=== PATIENT | female | born 1955 | race Caucasian/White ===

== ENCOUNTER 2023-07-27 10:33 | Outpatient (OUT) | payer MEDICARE, OTHER, SELFPAY ==
--- NOTE | 2023-07-27 11:07 | P.CN_ITS ---
Consult Note: HPI Data of Consult Patient: new to practice Consult date: 07/27/23 Requesting Physician: Lynn Graham NP Primary Care Provider: Julio Elias MD Consult Narrative Reason for consult: establish for low back pain Narrative: Cesia Cardona a pleasant 68 year old female presents for evaluation and management of chronic low back pain without radiculopathy. Pain today 7/10 in low back which is aggravated with all activity bending twisting standing and improves with sitting. Patient is utilizing marijuana, finds benefit from mobic. Please note she is on fosamax now for bone density. Patient was evaluated by ortho and deemed non surgical for right hip pain at this time. cc:: CC: Lynn Graham NP Review of Systems 2 ROS0 Status of ROS 10 or more systems reviewed and unremark able except as noted in history and below Musculoskeletal Reports: back pain and joint pain Exam Constitutional Documenting provider has reviewed patient's vital signs: yes Common normals: no apparent distress, oriented x3, healthy appearing, alert and well nourished General appearance: cooperative HENMT Common normals: normocephalic, hearing grossly normal bilaterally and moist oral mucous membranes Head and scalp: normocephalic Eye Common normals: PERRL Pupil: PERRL Neck & C-Spine Common normals: full ROM General: normal visual inspection Chest Common normals: inspection of chest normal Respiratory Common normals: normal respiratory effort, no retractions and no use of accessory muscles Back & Pelvis Lumbar spine/lower back: pain with ROM and straight leg raise negative bilaterally Sacroiliac joints: SI joints normal Other: positive facet loading patient reports pain over area below, marked with skin marker for xray Back image (female): 2 1. Extremity Common normals: normal to inspection and full ROM Right lower extremity: hip joint Other: pain with internal and external rotation reports popping sensation intermittently Neuro Common normals: oriented x3, CN's II-XII intact bilaterally, moves all extremities, no focal motor deficits, no sensory deficits noted, deep tendon reflexes 2+ bilaterally and gait normal Sensorium/orientation: alert Motor exam: strength 5/5 throughout and no movement abnormalities noted Psych Common normals: mental status grossly normal, thought process normal, cooperative, affect normal, speech normal and activity/motor behavior normal Speech: normal speech Thought process: normal thought process Assessment and Plan Assessment and Plan (1) Chronic low back pain: (2) Lumbar spondylosis: (3) Right hip pain: (4) Osteoporosis: Plan start PT/aquatherapy for chronic low back pain and lumbar spondylosis update xray imaging of lumbar spine with flexion and extension (skin marker on patient reported worst level of pain) continue current medications educated on NNCP with marijuana use [employer] reviewed and signed f/u 6 weeks to discuss xray imaging and lumbar facet blocks working towards thermal RFA
== END 2023-07-27 10:34 | disposition home or self-care (01) ==
LOC: PM 10:33
PROVIDERS: PCP Family Medicine; Visit Provider Nurse Practitioner
DX: M54.50 Low back pain, unspecified (principal); G89.29 Other chronic pain; M47.816 Spondylosis without myelopathy or radiculopathy, lumbar region; M25.551 Pain in right hip; M81.0 Age-related osteoporosis without current pathological fracture
CPT/HCPCS: 72114; G0463

== ENCOUNTER 2023-07-27 11:46 | Outpatient (OUT) | payer MEDICARE, OTHER, SELFPAY ==
--- NOTE | 2023-07-27 | XR_ITS ---
The [address] [address] Patient Name: VENESSA PUGH MRN: [id number] date: 1955 Sex: F Assigned Patient Location: [facility] Current Patient Location: [facility] Accession/Order Number: [id number] Exam Date: 07/27/2023 12:00 Report Date: 07/27/2023 12:48 At the request of: FABIÁN HOLLOWAY Procedure: XR lumbar spine 6V w bending EXAMINATION: XR lumbar spine 6V w bending HISTORY: Chronic Low Back Pain COMPARISON: XR L-spine 10/16/2021 FINDINGS: BONES: Slight left convex curvature of lumbar spine. Grade 1 anterior listhesis of L4 on 5; slightly greater than seen on prior study. No change in alignment during flexion and extension. Moderate degenerative facet arthropathy L4-5, L5-S1. DISC SPACES: Degenerative endplate changes, posterior disc height and osteophyte complexes, and moderate marked disc space narrowing L2-3 through L5-S1. PARASPINOUS: Negative. No paraspinous abnormality is seen. OTHER: Skin surface markers located posterior to the L1-2 and L2-3 disc levels. XR/XR lumbar spine 6V w bending IMPRESSION: 1. Multilevel marked degenerative changes of lumbar spine; slightly progressed compared to prior study. Electronically authenticated by: JANETT SAMPSON Date: 07/27/2023 12:48
== END 2023-07-27 11:47 | disposition home or self-care (01) ==
LOC: RAD 11:48
PROVIDERS: PCP Family Medicine; Visit Provider Nurse Practitioner
DX: M54.50 Low back pain, unspecified (principal); G89.29 Other chronic pain
CPT/HCPCS: 72114

== ENCOUNTER 2023-09-01 12:35 | Outpatient (OUT) | payer MEDICARE, OTHER, SELFPAY ==
--- NOTE | 2023-09-01 12:38 | PM.CN ---
Consult Note: HPI Data of Consult Patient: known to practice within the last 3 years Consult date: 07/27/23 Requesting Physician: Lynn Graham NP Primary Care Provider: Julio Elias MD Consult Narrative Reason for consult: low back pain Narrative: Cesia Cardona a pleasant 68 year old female presents for evaluation and management of chronic low back pain without radiculopathy. Pain today 0/10 increaing to 7/10 in low back which is aggravated with all activity bending twisting standing and improves with sitting. Patient is utilizing marijuana, finds benefit from mobic. Please note she is on fosamax now for bone density. Patient was evaluated by ortho and deemed non surgical for right hip pain at this time. The patient has had over 3 months of moderate to severe low back pain with functional impairment and inadequate response to conservative care including NSAIDS (unless there are contraindication such as concurrent blood thinners), multiple oral or topical pain medications, and home exercise program/physical therapy.?Patient has completed >6 weeks of guided home exercise program and/or formal physical therapy program without relief of their symptoms.?I have reviewed the imaging of the lumbar spine and no red flags were identified.? The imaging reveals radiographic findings consistent with lumbar spondylosis The Oswestry Disability Index was completed, and the patient scored a 26%.? cc:: CC: Lynn Graham NP Review of Systems ROS Status of ROS 10 or more systems reviewed and unremarkable except as noted in history and below Musculoskeletal Reports: back pain and joint pain [facility] Medical History (Updated 09/01/23 @ 13:05 by Lynn Graham NP) Osteoporosis ?M81.0 - Age-related osteoporosis without current pathological fracture (ICD-10) Lumbar spondylosis ?M47.816 - Spondylosis without myelopathy or radiculopathy, lumbar region (ICD-10) Chronic low back pain ?M54.50 - Low back pain, unspecified (ICD-10) ?G89.29 - Other chronic pain (ICD-10) Meds Home Medications and Allergies Home Medications Medication Instructions Recorded Confirmed Type alendronate 70 mg tablet 70 mg PO QWEEK 07/27/23 07/27/23 History calcium carbonate 600 mg-vitamin 1 tab PO BID 07/27/23 07/27/23 History D3 5 mcg (200 unit) tablet (Calcium 600 + D(3)) docusate sodium 100 mg capsule 100 mg PO .HS PRN constipation 07/27/23 07/27/23 History famotidine 20 mg tablet 20 mg PO .HS 07/27/23 07/27/23 History loratadine 10 mg tablet (Claritin) 10 mg PO DAILY 07/27/23 07/27/23 History meloxicam 15 mg tablet 15 mg PO DAILY 07/27/23 07/27/23 History metoprolol succinate 50 mg capsule 50 mg PO BID 07/27/23 07/27/23 History sprinkle, ext. release 24 hr multivitamin 1 tab PO DAILY 07/27/23 07/27/23 History omeprazole 20 mg capsule,delayed 20 mg PO DAILY 07/27/23 07/27/23 History release pravastatin 20 mg tablet 20 mg PO DAILY 07/27/23 07/27/23 History secukinumab 150 mg/mL subcutaneous 150 mg subcut .[id number] 07/27/23 07/27/23 History pen injector (Cosentyx Pen) sennosides 8.6 mg capsule (senna) 8.6 mg PO .HS PRN constipation 07/27/23 07/27/23 History Exam Constitutional Documenting provider has reviewed patient's vital signs: yes Common normals: no apparent distress, oriented x3, healthy appearing, alert and well nourished General appearance: cooperative HENMT Common normals: normocephalic, hearing grossly normal bilaterally and moist oral mucous membranes Head and scalp: normocephalic Eye Common normals: PERRL Pupil: PERRL Neck & C-Spine Common normals: full ROM General: normal visual inspection Chest Common normals: inspection of chest normal Respiratory Common normals: normal respiratory effort, no retractions and no use of accessory muscles Back & Pelvis Lumbar spine/lower back: pain with ROM and straight leg raise negative bilaterally Sacroiliac joints: SI joints normal Other: positive facet loading Extremity Common normals: normal to inspection and full ROM Right lower extremity: hip joint Other: pain with internal and external rotation reports popping sensation intermittently Neuro Common normals: oriented x3, CN's II-XII intact bilaterally, moves all extremities, no focal motor deficits, no sensory deficits noted and deep tendon reflexes 2+ bilaterally Sensorium/orientation: alert Motor exam: strength 5/5 throughout and no movement abnormalities noted Psych Common normals: mental status grossly normal, thought process normal, cooperative, affect normal, speech normal and activity/motor behavior normal Speech: normal speech Thought process: normal thought process Results Additional Findings Additional findings: I have checked an [place]AR[place] report on this patient today and there are no aberrancies noted in the prescribing history.?? A drug screen was completed and reviewed within the last year, and if there has not been a drug screen completed we ordered one today to monitor higher risk, state monitored pain medication use. As part of providing excellent, safe, comprehensive care, the following was completed at our patient's visit: 1. A medication reconciliation and review to ensure accurate knowledge of current/active medications, including asking our patients to inform us about any [id number] medications or herbal remedies/nutritional supplements/alternative remedies. 2. A review to specifically ensure our patients have had annual screening for: elevated body mass index (BMI), tobacco use, screening for depression, and screening for unhealthy alcohol use. When screening is concerning, patients are provided with education and the specific recommendation to discuss the concerning health issue and treatment options with their primary care provider. Assessment and Plan Assessment and Plan (1) Lumbar spondylosis: Assessment and Plan: We discussed the risks and benefits of the procedure with the patient, and we are NOT planning on using sedation as outlined in the guidelines from Medicare unless there is a documented reason that sedation would be strongly recommended.?? The procedure will be completed with fluoroscopic guidance.? (2) Chronic low back pain: (3) Right hip pain: (4) Osteoporosis: Plan xrays reviewed with pt bilateral L3-4 L4-5 facet medial branch blocks x2 working towards thermal RFA continue HEP/PT as tolerated continue current medications continue NNCP, marijuana use f/u 1 week after procedure
--- OUTSIDE RECORDS SUMMARY | 2023-09-01 12:53 | XMS_ITS | CCD ---
Author Name Unknown Address [facility] [address] [place] [address] Organization [facility] Care Team Providers Care Cured Meats Supervisor Name Role Phone CURT ., DR SERNA Attending Unavailable RHONDAY ., DR SERNA Consulting Unavailable RHONDAY ., DR SERNA Primary Care Unavailable CURT ., DR SERNA Admitting Unavailable ZIEBER, DR PAULINO Liu Consulting Unavailable Curt CHUN, Daphne Calles Primary Care Provider [phone] KARLA TYLER Attending Unavailable DAVEY, IRIS L Attending Unavailable UNALLOCATED, [facility]OM[facility] PROVIDER Referring Unava ilable DAVEY, IRIS L Attending Unavailable AMIE, FABIÁN Referring Unavailable DAVEY, IRIS L Attending Unavailable AMIE, FABIÁN Referring Unavailable DAVEY, IRIS L Attending Unavailable AMIE, FABIÁN Referring Unavailable DAVEY, IRIS L Attending Unavailable AMIE, FABIÁN Referring Unavailable APLINGLORE Attending Unavailable DAVEY, IRIS L Attending Unavailable AMIE, FABIÁN Referring Unavailable DAVEY, IRIS L Attending Unavailable AMIE, FABIÁN Referring Unavailable DAVEY, IRIS L Attending Unavailable AMIE, FABIÁN Referring Unavailable DAVEY, IRIS L Attending Unavailable AMIE, FABIÁN Referring Unavailable Allergies Allergy Classification Reported Allergen(s) Allergy Type Date of Onset Reaction(s) Facility (1 source) Leucine Drug Allergy [facility] Repository (1 source) Mis-Other; Translations: [[facility]-Other] Propensity to adverse reactions (disorder) [facility] Medications Current Medications Medication Drug Class(es) Dates Sig (Normalized) Sig (Original) alendronic acid 70 mg oral tablet (6 sources) Bisphosphonate take 1 tablet by mouth every week alendronate (Fosamax) 70 MG tablet TAKE 1 TABLET BY MOUTH ONE TIME PER WEEK 0 Active calcium carbonate 1500 mg / cholecalciferol 200 unt oral tablet (6 sources) Vitamin D Calcium Carb-Cholecalcife rol (Calcium 600 + D) 600-5 MG-MCG tablet 1 (one) time each day at the same time. 0 Active clobetasol propionate 0.0005 mg/mg topical ointment (6 sources) Corticosteroid Start: 07-25-2023 clobetasol (Temovate) 0.05 % ointment Indications: Psoriasis vulgaris (CMS/HCC) Apply to affected areas, up to twice a day when flared, do not use one the face, groin, or underarms, 30 day supply 30 g 07/25/2023 Active famotidine 20 mg oral tablet (6 sources) Histamine-2 Receptor Antagonist famotidine (Pepcid) 20 MG tablet loratadine 10 mg oral tablet (6 sources) loratadine (Claritin) 10 MG tablet 1 (one) time each day at the same time. 0 Active meloxicam 15 mg oral tablet (6 sources) Nonsteroidal Anti-inflammatory Drug take 1 tablet by mouth in the morning meloxicam (Mobic) 15 MG tablet Take 15 mg by mouth in the morning. 0 Active metoprolol tartrate 50 mg oral tablet (6 sources) beta-Adrenergic Mercedes take 1 tablet by mouth twice daily metoprolol tartrate (Lopressor) 50 MG tablet TAKE 1 AND 1/2 TABLETS ORALLY TWICE A DAY 90 DAYS 0 Active Multiple Vitamins-Minerals (SENIOR MULTIVITAMIN PLUS PO) (6 sources) Multiple Vitamins-Minerals (SENIOR MULTIVITAMIN PLUS PO) omeprazole 20 mg delayed release oral capsule (6 sources) Proton Pump Inhibitor take 1 capsule by mouth in the morning omeprazole (PriLOSEC) [address] capsule Take 20 mg by mouth in the morning and 20 mg before bedtime. 0 Active pravastatin sodium 20 mg oral tablet (6 sources) HMG-CoA Reductase Inhibitor take 1 tablet by mouth in the morning pravastatin (Pravachol) 20 MG tablet Take 20 mg by mouth in the morning. 0 Active 1 ml secukinumab 150 mg/ml auto-injector (6 sources) Interleukin-17A Antagonist Start: 05-19-2023 inject 28 mg by subcutaneous injection once daily Cosentyx Sensoready, 300 MG, 150 MG/ML solution auto-injector Indications: Psoriasis vulgaris (CMS/HCC) Inject 300 mg under the skin every 28 (twenty-eight) days. 2 each 05/19/2023 Active Problems Problem Classification Problem Date Documented Da te Episodic/Chronic Menopausal disorders (4 sources) Other primary ovarian failure; Translations: [OTHER PRIMARY OVARIAN FAILURE] Onset: 10-13-2022 Chronic Other bone disease and musculoskeletal deformities (1 source) Other specified disorders of bone density and structure, unspecified site; Translations: [[facility] D/O BONE DEN STRUCT UNS SITE] Onset: 10-19-2022 Episodic Other nervous system disorders (9 sources) Antalgic gait; Translations: [Other abnormalities of gait and mobility] Onset: 07-28-2023 07-28-2023 Episodic Other non-traumatic joint disorders (9 sources) Pain in right hip joint; Translations: [Pain in right hip] Onset: 07-28-2023 07-28-2023 Episodic Other screening for suspected conditions (not mental disorders or infectious disease) (1 source) Encounter for screening mammogram for malignant neoplasm of breast; Translations: [ENC SCR MAMMO MALIG NEOPLASM BREAST] Onset: 10-19-2022 Episodic Residual codes; unclassified (1 source) Family history of other malignant neoplasms of lymphoid, hematopoietic and related tissues; Translations: [FAM HX OTH MAL CRISTINA LYMPH HEMATPOETC] Onset: 10-19-2022 Episodic Residual codes; unclassified (1 source) Family history of malignant neoplasm of other organs or systems; Translations: [FAM HX MALIG NEOPLASM OTH ORGN/SYS] Onset: 10-19-2022 Episodic Spondylosis; intervertebral disc disorders; other back problems (9 sources) Lumbar spondylosis; Translations: [Spondylosis without myelopathy or radiculopathy, lumbar region] Onset: 07-28-2023 07-28-2023 Chronic Results Test Name Value Interpretation Reference Range Facil ity MG MAMM SCREEN 3D REGINO CADon 10-13-2022 MG MAMM SCREEN 3D REGINO CAD Patient: VENESSA PUGH Exam Date: 10/13/2022 : 1955 Gender:F Ordering : DR DAPHNE ELIAS . Admission #: [id number] Family : Order #: [id number] CLICK HERE TO VIEW EXAM RADIOLOGY REPORT PROCEDURE: MAMMOGRAM SCREENING 3D BILATERAL CAD COMPARISON: MG MAMM SCREEN REGINO W CAD, 09/08/2020. MG MAMM SCREEN REGINO W CAD, 09/06/2019. DIGITIZED_MAMMO, 07/23/2008. MG MAMM SCREEN 3D REGINO CAD, 09/09/2021. INDICATIONS: Screening mammography Calculator Name NCI Breast Cancer Risk Assessment Tool 5 Year Breast Cancer Risk 2.90% Lifetime Breast Cancer Risk 8.70% Personal Breast Cancer No Personal Ovarian Cancer No Treatments None Family Cancers Father with nonhotchkins cancer at age 60; Sister with basil cell carcinoma cancer at age 52. LOCATION: [facility] BREAST COMPOSITION: Scattered areas fibroglandular density. FINDINGS: DIAGNOSTIC CATEGORY 2--BENIGN FINDING: RIGHT BREAST: No significant suspicious finding. No significant change has occurred. LEFT BREAST: No significant suspicious finding. No significant change has occurred. RECOMMENDATIONS: ROUTINE MAMMOGRAM AND CLINICAL EVALUATION IN 12 MONTHS. PLEASE NOTE: A NORMAL MAMMOGRAM DOES NOT EXCLUDE THE POSSIBILITY OF BREAST CANCER. A CLINICALLY SUSPICIOUS PALPABLE LUMP SHOULD BE BIOPSIED. Dictated by: Paulino Mendoza M.D. on 10/13/2022 at 13:47 Approved by: Paulino Mendoza M.D. on 10/13/2022 at 13:51 Normal [facility] XR DEXA BONE DENSITYon 10-13 XR DEXA BONE DENSITY EXAMINATION: XR DEXA BONE DENSITY, 10/13/2022 10:53 AM EDT HISTORY: Primary ovarian failure COMPARISON: DEXA bone densitometry 11/06/2004 TECHNIQUE: Dual-energy X-ray absorptiometry (DEXA) bone density study performed for the axial skeleton. FINDINGS: SPINE ANALYSIS: Average bone mineral density is 1.409 g/cm2. T-score (standard deviation relative to young adult mean): 1.7 . -6.5% change since prior study. HIP ANALYSIS: Lowest bone mineral density is within the left femoral trochanter, 0.632 g/cm2. T-score (standard deviation relative to young adult mean): -1.9 . -10.6% change since prior study. IMPRESSION: World [employer] Organization Classification: Osteopenia - Moderate Fracture Risk Electronically authenticated by: PAULINO MENDOZA Date: 2022-10-13 11:38 Normal [facility] Encounters Encounter Date Encounter Type Care Provider Facility Start: 08-30-2023 Tansler flowsheet Iris Davey PT Work Phone: [facility] PT Start: 08-30-2023 Bamboo flowsheet Iris L Davey PT Work Phone: [facility] PT Start: 08-30-2023 End: 08-30-2023 ambulatory Iris L Davey PT Work Phone: [facility] PT Comment on above: Lumbar spondylosis ( Primary Dx); Right hip pain; Antalgic gait Start: 08-25-2023 End: 08-25-2023 ambulatory Iris L Davey PT Work Phone: [facility] PT Comment on above: Lumbar spondylosis ( Primary Dx); Right hip pain; Antalgic gait Start: 08-23-2023 End: 08-23-2023 ambulatory IRIS L DAVEY Not Available Start: 08-19-2023 Chart abstracting Iris L Davey PT Work Phone: [facility] PT Start: 08-18-2023 Bamboo flowsheet Iris L Davey PT Work Phone: [facility] PT Start: 08-18-2023 Bamboo flowsheet Iris L Davey PT Work Phone: [facility] PT Start: 08-18-2023 End: 08-18-2023 ambulatory Iris L Davey PT Work Phone: [facility] PT Comment on above: Lumbar spondylosis ( Primary Dx); Right hip pain; Antalgic gait Start: 08-16-2023 End: 08-16-2023 ambulatory IRIS L DAVEY Not Available Start: 08-11-2023 End: 08-11-2023 ambulatory IRIS L DAVEY Not Available Start: 08-09-2023 End: 08-09-2023 ambulatory IRIS L DAVEY Not Available Start: 08-03-2023 End: 08-03-2023 ambulatory IRIS L DAVEY Not Available Start: 07-28-2023 End: 07-28-2023 ambulatory IRIS L DAVEY Not Available Start: 07-25-2023 End: 07-25-2023 ambulatory KARLA TYLER Not Available Start: 06-13-2023 End: 06-13-2023 ambulatory LORE BLACK Not Available Start: 10-13-2022 End: 10-14-[address] DAPHNE ELIAS . Facility:H1 Plan of Treatment Date Care Activity Detail Author Start: 07-26-2024 End: 07-26-2024 Patient encounter procedure 07/26/2024 1:20 PM EST Office Visit [facility] [address] [place] [id number] Karla Tyler, PROGRAM ELIGIBILITY SPECIALIST-CHUMMER [address] [place] [address] [facility] Start: 10-13-2023 End: 10-13-2023 ambulatory 10/13/2023 1:00 PM EDT Treatment [facility] [address] [place] [phone] Jolynn Iris L, PT [address] [place] [address] [facility] PT Start: 10-11-2023 End: 10-11-2023 ambulatory 10/11/2023 1:00 PM EDT Treatment [facility] [address] [place] [phone] Jolynn Iris L, PT [address] [place] [address] [facility] PT Start: 10-06-2023 End: 10-06-2023 ambulatory 10/06/2023 1:00 PM EDT Treatment [facility] PT [address] [place] [address] Jolynn Iris L, PT [address] [place] [address] [facility] PT Start: 10-04-2023 End: 10-04-2023 ambulatory 10/04/2023 1:00 PM EDT Treatment [facility] PT [address] [place] [phone] Iris Davey L, PT [address] [place] [address] [facility] Start: 09-29-2023 End: 09-29-2023 ambulatory 09/29/2023 1:00 PM EDT Treatment [facility] [address] [place] [address] Iris Davey L, PT [address] [place] [address] [facility] Start: 09-27-2023 End: 09-27-2023 ambulatory 09/27/2023 2:00 PM EDT Treatment [facility] [address] [place] [address] Iris Davey L, PT [address] [place] [address] [facility] Start: 09-01-2023 End: 09-01-2023 ambulatory 09/01/2023 10:30 AM EST Treatment [facility] [address] [place] [address] Davey, Iris L, PT [address] [place] [address] [facility] Start: 08-30-2023 End: 08-30-2023 ambulatory [facility] Comment on above: Arrived Start: 08-25-2023 End: 08-25-2023 ambulatory 08/25/2023 1:00 PM EST Treatment [facility] [address] [place] [address] Jolynn Iris L, PT [address] [place] [address] [facility] Start: 08-23-2023 End: 08-23-2023 ambulatory 08/23/2023 1:00 PM EST Treatment [facility] [address] [place] [address] Jolynn Iris Singleton, PT [address] [place] [address] [facility] Start: 08-18-2023 End: 08-18-2023 ambulatory 08/18/2023 1:00 PM EST Treatment [facility] [address] [place] [address] Jolynn Iris L, PT [address] [place] [address] Arrived [facility] Comment on above: Arrived Start: 1993 Screening for malign ant neoplasm of breast Mammogram [facility] Start: 1955 Screening for malign ant neoplasm of colon [facility] Immunizations Immunization Date Immunization Notes Care Provider Fa cility 04-22-2022 SARS-CoV-2, Unspecified Daisy Davey PT Work Phone: [facility] Payers Date Payer Category Payer Unknown [employer] [id number] 2021-Present [address] [place] [address] [id number] 2018 Medicare MEDICARE MEDICAR E PART B [id number] 2018-Present [address] [address] [place] [address] Medicare [id number] 1959 Medicare [id number] 1959 Unknown [id number] 1955 Unknown [id number] 1955 Unknown [id number] 1955 Unknown [id number] [id number] 1955 Unknown [id number] [id number] 1955 Unknown [id number] [id number] 1953 Unknown [id number] [id number] 1955 Unknown [id number] [id number] 1955 Unknown [id number] [id number] 1955 Unknown [id number] [id number] 1955 Unknown [id number] [id number] 1955 Unknown [id number] [id number] 1955 Unknown [id number] Social History Date Type Detail Facility Start: 04-25-2023 Tobacco smoking status [facility] Never sm oked tobacco [facility] Start: 04-25-2023 Tobacco use and exposure Smoke less tobacco non-user [facility] Start: 07-25-2023 Alcohol intake Current drinke r of alcohol (finding) [facility] Start: 07-25-2023 End: 08-01-2023 [facility] of [facility] Start: 07-25-2023 End: 08-01-2023 Alcohol Use Disorder Identification Test - Consumption [AUDIT-C] [facility] How often to you hav e a drink containing alcohol? 2-4 times a month [facility] How many standard dr inks containing alcohol do you have on a typical day? 1 or 2 [facility] Frequency of Binge Drinking Not on file [facility] Start: 06-11-2023 Alcohol Comment coffee 3-4 cups per day [facility] Start: 1955 Sex Assigned At Female [facility] Start: 04-20-2023 Gender identity Identifies as female gender (finding) [facility] Start: 04-20-2023 Sexual orientation Heterosexual (fin maria del carmen) [facility] History of Present illness Narrative 08-30-2023 Iris Davey PT - 08/30/2023 1:00 PM EST Note Date & Type Note Facility 08-30-2023 History of Presen t illness Narrative Physical Therapy Physical Therapy Treatment Visit Patient Name: Cesia Pugh Today's Date: 08/30/2023 Encounter Diagnoses Name Primary? Lumbar spondylosis Yes Right hip pain Antalgic gait Visit number: 9 Supervised time: 32 Total time: 65 Subjective Pain: 2/10 soreness from grocery shopping prior to session Overall progress: Improving with hip pain and mobility. Reports ~90% improvement. Much easier to perform car transfers. Has started stretching her hips right before bed and that has been helping her sleep better. States ~30-40% improvement in LBP. Back pain is what is limiting her functional mobility at this time. [place] [facility] [place]. Will be seeing pain management on . Treatment: Therapeutic Exercise: x28' (14' unsupervised) Per Exercise Grid for Range of Motion, Flexibility, Muscle Strength/Endurance, Neuromuscular Training Manual: x15' consisting of grade II-III lateral B hip joint mobs using belt in hooklying as well as long leg distraction with oscillations, hip abd PROM in supine. B hip ER/IR PROM in prone over 2 pillows Modalities: Lumbar mechanical traction x12' at 85/70# (45 /15 ) in supine with LEs elevated on bench for decompression. MHP to R hip x10' in sitting for soreness prevention post-session. Assessment: Progressing appropriately. No pain in L hip until end of session after completing bridges. Plan: Continue per POC. Hip mobs and PROM. Lumbar traction. ROM and strengthening. Follow up with pain management on 09/01/23. documented in this encounter [facility] History of Present illness Narrative 08-25-2023 Iris Davey PT - 08/25/2023 1:00 PM EST Note Date & Type Note Facility 08-25-2023 History of Presen t illness Narrative Physical Therapy Physical Therapy Treatment Visit Patient Name: Cesia Pugh Today's Date: 08/25/2023 Encounter Diagnoses Name Primary? Lumbar spondylosis Yes Right hip pain Antalgic gait Visit number: 8 Supervised time: 43 Total time: 70 Subjective Pain: 0/10 Overall progress: Improving. Continues to wake in the middle of the night with L posterolateral hip pain. Performed piriformis stretching last night which did reduce her intensity of pain. Treatment: Therapeutic Exercise: x32' (5' unsupervised) Per Exercise Grid for Range of Motion, Flexibility, Muscle Strength/Endurance, Neuromuscular Training Manual: x16' consisting of grade II-III lateral B hip joint mobs using belt in hooklying as well as long leg distraction with oscillations, hip abd PROM in supine. B hip ER/IR PROM in prone over 2 pillows Modalities: Lumbar mechanical traction x12' at 85/70# (45 /15 ) in supine with LEs elevated on bench for decompression. MHP to R hip x10' in sitting for soreness prevention post-session. Assessment: Continues to c/o L sided hip pain intermittently throughout session. None in R hip. L hip IR remains restricted but greater ROM than on the R. Added MT to L hip this date to assess for response on pain. Increased poundage and duration of mechanical traction without adverse response. Plan: Continue per POC. R hip mobs and PROM. Lumbar traction. ROM and strengthening. Follow up with pain management on 09/01/23. documented in this encounter [facility] History of Present illness Narrative 08-18-2023 Iris Davey PT - 08/18/2023 1:00 PM EST Note Date & Type Note Facility 08-18-2023 History of Presen t illness Narrative Physical Therapy Physical Therapy Treatment Visit Patient Name: Cesia Pugh Today's Date: 08/18/2023 No diagnosis found. Visit number: 6 Supervised time: 40 Total time: 60 Subjective Pain: 0/10 Overall progress: Improving. Mild soreness following previous session. Treatment: Therapeutic Exercise: x23' Per Exercise Grid for Range of Motion, Flexibility, Muscle Strength/Endurance, Neuromuscular Training Manual: x17' consisting of grade II lateral R hip joint mobs using belt in hooklying as well as long leg distraction with oscillations, hip abd PROM in supine. R hip ER/IR PROM and piriformis release in prone over 2 pillows Modalities: Lumbar mechanical traction x10' at 80/65# (45 /15 ) in supine with LEs elevated on bench for decompression. MHP to R hip x10' in sitting for soreness prevention post-session. Assessment: Good tolerance to MT again this date although demonstrated difficulty relaxing buttocks during piriformis release. Minimal muscle guarding into IR. Able to achieve ~20 degrees again without exacerbation of pain. Progressing appropriately. Increase hip strengthening next session if appropriate. Plan: Continue per POC. R hip mobs and PROM. Lumbar traction. ROM and strengthening. documented in this encounter [facility] Evaluation note Note Date & Type Note Facility Evaluation note Diagnosis Lumbar spondylosis- Primary Lumbosacral spondylosis without myelopathy Right hip pain Pain in joint, pelvic region and thigh Antalgic gait documented in this encounter [facility] Evaluation note Note Date & Type Note Facility Evaluation note Diagnosis Lumbar spondylosis- Primary Lumbosacral spondylosis without myelopathy Right hip pain Pain in joint, pelvic region and thigh Antalgic gait documented in this encounter [facility] Evaluation note Note Date & Type Note Facility Evaluation note Diagnosis Lumbar spondylosis- Primary Lumbosacral spondylosis without myelopathy Right hip pain Pain in joint, pelvic region and thigh Antalgic gait documented in this encounter [facility] Summary Purpose Family History No Family History Records FoundNo Family History Records Found Advance Directives No Advanced Directives Records FoundNo Advanced Directives Records Found Additional Source Comments INFORMATION SOURCE (unrecogn ized section and content) DATE CREATED AUTHOR 10/22/2022 [facility] DATE CREATED AUTHOR AUTHOR'S ORGANIZ ATION 09/01/2023 [facility] EPIC Care Teams (unrecognized sec tion and content) Cured Meats Supervisor Relationship Specialty Start Date End Date Daphne Elias MD [address] [facility] [place] [address] PCP - General Family Medicine 04/25/23 Cured Meats Supervisor Relationship Specialty Start Date End Date Daphne Elias MD [address] [place] [address] PCP - General Family Medicine 04/25/23 Cured Meats Supervisor Relationship Specialty Start Date End Date Daphne Elias MD [address] [facility] [place] [address] PCP - General Family Medicine 04/25/23 Cured Meats Supervisor Relationship Specialty Start Date End Date Daphne Elias MD [address] [facility] [place] [address] PCP - General Family Medicine 04/25/23 Cured Meats Supervisor Relationship Specialty Start Date End Date Daphne Elias MD [address] [place] [address] PCP - General Family Medicine 04/25/23 Cured Meats Supervisor Relationship Specialty Start Date End Date Daphne Elias MD [address] [place] [address] PCP - General Family Medicine 04/25/23 Reason for Visit (unrecogniz ed section and content) Specialty Diagnoses / Procedures Referred By Contac t Referred To Contact Physical Therapy Diagnoses Spondylosis without myelopathy or radiculopathy, lumbar region Procedures [place] PHYSICAL THERAPY EVALUATION LOW COMPLEX 20 MINS Fabián Graham, CINDER WORKER [address] [place] [address] Iris Davey, PT [address] [place] [address] Referral ID Status Reason Start Date Expiration Date V isits Requested Visits Authorized [id number] Authorized 07/27/2023 01/23/2024 30 30 FOR RECORDS PERTAINING TO PATIENTS WHO ARE OR HAVE BEEN ENROLLED IN A CHEMICAL DEPENDENCY/SUBSTANCEABUSE PROGRAM, SOME INFORMATION MAY BE OMITTED. This clinical summary was aggregated from multiple sources. Caution should be exercised in using it in the provision of clinical care. This summary normalizes information from multiple sources, and as a consequence, information in this document may materially change the coding, format and clinical context of patient data. In addition, data may be omitted in some cases. CLINICAL DECISIONS SHOULD BE BASED ON THE PRIMARY CLINICAL RECORDS. [facility]. provides no warranty or guarantee of the accuracy or completeness of information in this document.
== END 2023-09-01 12:36 | disposition home or self-care (01) ==
LOC: PM 12:35
PROVIDERS: PCP Family Medicine; Visit Provider Nurse Practitioner
DX: M47.816 Spondylosis without myelopathy or radiculopathy, lumbar region (principal); M54.50 Low back pain, unspecified; M25.551 Pain in right hip; M19.90 Unspecified osteoarthritis, unspecified site
CPT/HCPCS: G0463

== ENCOUNTER 2023-10-03 09:18 | Day surgery (SDC) | payer MEDICARE, OTHER, SELFPAY ==
--- OUTSIDE RECORDS SUMMARY | 2023-10-03 09:38 | XMS_ITS | CCD ---
Author Name Unknown Address [facility] [address] [address] [place] [address] Organization [facility] Care Team Providers Care Nozzle Tender Name Role Phone CURT ., DR SERNA Attending Unavailable RHONDAY ., DR SERNA Consulting Unavailable RHONDAY ., DR SERNA Primary Care Unavailable CURT ., DR SERNA Admitting Unavailable ZIEBER, DR PAULINO Liu Consulting Unavailable Curt CHUN, Daphne Calles Primary Care Provider [phone] KARLA TYLER Attending Unavailable DAVEY, IRIS L [...] Facility (1 source) Leucine Drug Allergy [facility] Repository (1 source) Mis-Other; Translations: [[facility]] Propensity to adverse reactions (disorder) [facility] Medications Current Medications Medication Drug Class(es) Dates Sig (Normalized) Sig (Original) alendronic acid 70 mg oral tablet (8 sources) Bisphosphonate take 1 tablet by mouth every week alendronate (Fosamax) 70 MG tablet TAKE 1 TABLET BY MOUTH ONE TIME PER WEEK 0 Active calcium carbonate 1500 mg / cholecalciferol 200 unt oral tablet (8 sources) Vitamin D Calcium Carb-Cholecalcife rol (Calcium 600 + D) 600-5 MG-MCG tablet 1 (one) time each day at the same time. 0 Active clobetasol propionate 0.0005 mg/mg topical ointment (8 sources) Corticosteroid Start: 07-25-2023 clobetasol (Temovate) 0.05 % ointment Indications: Psoriasis vulgaris (CMS/HCC) Apply to affected areas, up to twice a day when flared, do not use one the face, groin, or underarms, 30 day supply 30 g 07/25/2023 Active famotidine 20 mg oral tablet (8 sources) Histamine-2 Receptor Antagonist famotidine (Pepcid) 20 MG tablet loratadine 10 mg oral tablet (8 sources) loratadine (Claritin) 10 MG tablet 1 (one) time each day at the same time. 0 Active meloxicam 15 mg oral tablet (8 sources) Nonsteroidal Anti-inflammatory Drug take 1 tablet by mouth in the morning meloxicam (Mobic) 15 MG tablet Take 15 mg by mouth in the morning. 0 Active metoprolol tartrate 50 mg oral tablet (8 sources) beta-Adrenergic Mercedes take 1 tablet by mouth twice daily metoprolol tartrate (Lopressor) 50 MG tablet TAKE 1 AND 1/2 TABLETS ORALLY TWICE A DAY 90 DAYS 0 Active Multiple Vitamins-Minerals (SENIOR MULTIVITAMIN PLUS PO) (8 sources) Multiple Vitamins-Minerals (SENIOR MULTIVITAMIN PLUS PO) omeprazole 20 mg delayed release oral capsule (8 sources) Proton Pump Inhibitor take 1 capsule by mouth in the morning omeprazole (PriLOSEC) [address] capsule Take 20 mg by mouth in the morning and 20 mg before bedtime. 0 Active pravastatin sodium 20 mg oral tablet (8 sources) HMG-CoA Reductase Inhibitor take 1 tablet by mouth in the morning pravastatin (Pravachol) 20 MG tablet Take 20 mg by mouth in the morning. 0 Active 1 ml secukinumab 150 mg/ml auto-injector (8 sources) Interleukin-17A Antagonist Start: 05-19-2023 inject 28 mg by subcutaneous injection once daily Cosentyx Sensoready, 300 MG, 150 MG/ML solution auto-injector Indications: Psoriasis vulgaris (CMS/HCC) Inject 300 mg under the skin every 28 (twenty-eight) days. 2 each 11 05/19/2023 Active Problems Problem Classification Problem Date Documented Da te Episodic/Chronic Menopausal disorders (4 sources) Other primary ovarian failure; Translations: [OTHER PRIMARY OVARIAN FAILURE] Onset: 10-13-2022 Chronic Other bone disease and musculoskeletal deformities (1 source) Other specified disorders of bone density and structure, unspecified site; Translations: [OT D/O BONE DEN STRUCT UNS SITE] Onset: 10-19-2022 Episodic Other nervous system disorders (12 sources) Antalgic gait; Translations: [Other abnormalities of gait and mobility] Onset: 07-28-2023 07-28-2023 Episodic Other non-traumatic joint disorders (12 sources) Pain in right hip joint; Translations: [...] Spondylosis; intervertebral disc disorders; other back problems (12 sources) Lumbar spondylosis; Translations: [Spondylosis without myelopathy or radiculopathy, lumbar region] Onset: 07-28-2023 07-28-2023 Chronic Results Test Name Value Interpretation Reference Range Facil ity MG MAMM SCREEN 3D REGINO CADon 10-13-2022 MG MAMM SCREEN 3D REGINO CAD Patient: VENESSA CARDONA Exam Date: 10/13/2022 : 1955 Gender:F Ordering : DR DAPHNE ELIAS . Admission #: [id number] Family : Order #: [id number] CLICK HERE TO VIEW EXAM RADIOLOGY REPORT [...] carcinoma cancer at age 50. LOCATION: [facility] BREAST COMPOSITION: Scattered areas fibroglandular density. FINDINGS: [...] Mendoza M.D. on 10/13/2022 at 13:51 Normal [facility] XR DEXA BONE DENSITYon 10-13 XR DEXA [...] by: PAULINO MENDOZA Date: 2022-10-13 11:38 Normal [facility] Encounters Encounter Date Encounter Type Care Provider Facility Start: 09-29-2023 End: 09-29-2023 ambulatory IRIS L DAVEY Not Available Start: 09-27-2023 End: 09-27-2023 ambulatory IRIS L DAVEY Not Available Start: 09-01-2023 Bamboo flowsheet Iris L Davey PT Work Phone: [facility] Start: 09-01-2023 Bamboo flowsheet Iris L Davey PT Work Phone: [facility] Start: 09-01-2023 End: 09-01-2023 ambulatory IRIS L DAVEY Not Available Start: 09-01-2023 End: 09-01-2023 ambulatory Iris L Davey PT Work Phone: [facility] Comment on above: Lumbar spondylosis ( Primary Dx); Right hip pain; Antalgic gait Start: 08-30-2023 Bamboo flowsheet Iris L Davey PT Work Phone: [facility] Start: 08-30-2023 Bamboo flowsheet Iris L Davey PT Work Phone: [facility] Start: 08-30-2023 End: 08-30-2023 ambulatory Iris L Davey PT Work Phone: [facility] Comment on above: Lumbar spondylosis ( Primary Dx); Right hip pain; Antalgic gait Start: 08-25-2023 End: 08-25-2023 ambulatory Iris L Davey PT Work Phone: [facility] Comment on above: Lumbar spondylosis ( Primary Dx); Right hip pain; Antalgic gait Start: 08-23-2023 End: 08-23-2023 ambulatory IRIS L DAVEY Not Available Start: 08-19-2023 Chart abstracting Iris L Davey PT Work Phone: [facility] Start: 08-18-2023 Bamboo flowsheet Iris L Davey PT Work Phone: [facility] Start: 08-18-2023 Bamboo flowsheet Iris L Davey PT Work Phone: [facility] Start: 08-18-2023 End: 08-18-2023 ambulatory Iris L Davey PT Work Phone: [facility] Comment on above: Lumbar spondylosis ( [...] Available Start: 06-13-2023 End: 06-13-2023 ambulatory LORE Her APLING Not Available Start: 10-13-2022 End: 10-14-[address] DAPHNE ELIAS . Facility: Plan of Treatment Date Care Activity Detail Author Start: 07-26-2024 End: 07-26-2024 Patient encounter procedure 07/26/2024 1:20 PM EST Office Visit [facility] [address] [place] [phone] Karla Tyler, DIGITAL CAMPAIGN SPECIALIST-COPPER MINER [address] [place] [address] [facility] Start: 10-13-2023 End: 10-13-2023 ambulatory 10/13/2023 1:00 PM EDT Treatment [facility] [address] [place] [address] Davey, Iris L, PT [address] [place] [address] [facility] Start: 10-11-2023 End: 10-11-2023 ambulatory 10/11/2023 1:00 PM EDT Treatment [facility] [address] [place] [address] Davey Iris L, PT [address] [place] [address] [facility] Start: 10-06-2023 End: 10-06-2023 ambulatory 10/06/2023 1:00 PM EDT Treatment [facility] [address] [place] [address] Davey Iris L, PT [address] [place] [address] [facility] Start: 10-04-2023 End: 10-04-2023 ambulatory 10/04/2023 1:00 PM EDT Treatment [facility] [address] [place] [address] Iris Davey L, PT [address] [place] [address] [facility] Start: 09-29-2023 End: 09-29-2023 ambulatory 09/29/2023 1:00 PM EDT Treatment [facility] [address] [place] [address] Davey Iris L, PT [address] [place] [address] [facility] Start: 09-27-2023 End: 09-27-2023 ambulatory 09/27/2023 2:00 PM EDT Treatment [facility] [address] [place] [address] Davey Iris L, PT [address] [place] [address] [facility] Start: 09-01-2023 End: 09-01-2023 ambulatory [facility] Comment on above: Arrived Start: 08-30-2023 End: 08-30-2023 ambulatory [facility] Comment on above: Arrived Start: 08-25-2023 End: 08-25-2023 ambulatory 08/25/2023 1:00 PM EST Treatment [facility] [address] [place] [address] Iris Davey, PT [address] [place] [address] [facility] Start: 08-23-2023 End: 08-23-2023 ambulatory 08/23/2023 1:00 PM EST Treatment [facility] [address] [place] [address] Iris Davey, PT [address] [place] [address] [facility] Start: 08-18-2023 End: 08-18-2023 ambulatory 08/18/2023 1:00 PM EST Treatment [facility] [address] [place] [phone] Iris Davey, PT [address] [place] [address] Arrived [facility] Comment on above: Arrived Start: 1993 Screening for malign ant neoplasm of breast Mammogram [facility] Start: 1955 Screening for malign ant neoplasm of colon [facility] Immunizations Immunization Date Immunization Notes Care Provider Fa cility 04-22-2022 SARS-CoV-2, Unspecified Daisy Davey PT Work Phone: [facility] Payers Date Payer Category Payer Unknown [employer] [id number] 2021-Present [address] [place] [address] [id number] 2018 Medicare MEDICARE MEDICAR E PART B [id number] 2018-[place] [address] Medicare [id number] 1959 Medicare [id number] 1959 Unknown [id number] 1955 Unknown [id number] [id number] 1955 Unknown [id number] 2.16.840.1.324731.3.579.2.1259 1955 Unknown [id number] 2.16.840.1.944599.3.579.2.1259 1955 Unknown [id number] 2.16.840.1.792382.3.579.2.1259 1953 Unknown [id number] 2.16.840.1.048223.3.579.2.1259 1953 Unknown [id number] 2.16.840.1.682952.3.579.2.1259 1953 Unknown [id number] 2.16.840.1.044831.3.579.2.1259 1953 Unknown [id number] 2.16.840.1.301272.3.579.2.1259 1953 Unknown [id number] 2.16.840.1.795637.3.579.2.1259 1953 Unknown [id number] 2.16.840.1.816930.3.579.2.1259 1953 Unknown [id number] 2.16.840.1.397743.3.579.2.1259 1953 Unknown [id number] 2.16.840.1.001524.3.579.2.1259 1953 Unknown [id number] 2.16.840.1.756716.3.579.2.1259 1953 Unknown [id number] 2.16.840.1.307331.3.579.2.1259 1955 Unknown [id number] 2.16.840.1.829191.3.579.2.1259 Social History Date Type Detail Facility Start: 04-25-2023 Tobacco smoking status NHIS Never sm oked tobacco [facility] Start: [...] Healthcare Start: 04-20-2023 Sexual orientation Heterosexual (fin ding) [facility] History of Present illness Narrative 09-01-2023 Iris Davey, PT - 09/01/2023 10:30 AM EST Note Date & Type Note Facility 09-01-2023 History of Presen t illness Narrative Physical Therapy Physical Therapy Treatment Visit Patient Name: Cesia Cardona Today's Date: 09/01/2023 Encounter Diagnoses Name Primary? Lumbar spondylosis Yes Right hip pain Antalgic gait Visit number: 10 Supervised time: 33 Total time: 67 Subjective Pain: 0/10. I feel pretty good today. Hasn't [id number] much activity yet this morning. Overall progress: Patient reports ~90% overall improvement in hip pain and mobility since SOC. Back pain is what is limiting her functional mobility at this time. 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 Will be seeing pain management on . Treatment: Therapeutic Exercise: x30' (12' unsupervised) Per Exercise Grid for Range of [...] sitting for soreness prevention post-session. Assessment: Progressing appropriately with decreased pain in B hips. Demonstrating increased activity tolerance. Able to stand and ambulate longer durations and less difficulty with transfers. Continues to get sore with prolonged activity. RTD this afternoon. Plan: Continue per POC. Hip mobs and PROM. Lumbar traction. ROM and strengthening. Follow up with pain management on 09/01/23. documented in this encounter [facility] History of Present illness Narrative 08-30-2023 Iris Davey PT - 08/30/2023 1:00 PM EST Note Date & Type Note Facility 08-30-2023 History of Presen t illness Narrative Physical Therapy Physical Therapy Treatment Visit Patient Name: Cesia Cardona Today's Date: 08/30/2023 Encounter Diagnoses Name Primary? [...] her functional mobility at this time. 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 Will be [...] Physical Therapy Treatment Visit Patient Name: Cesia Cardona Today's Date: 08/25/2023 Encounter Diagnoses Name Primary? [...] management on 09/01/23. documented in this encounter [facility] History of Present illness Narrative 08-18-2023 Iris Davey PT - 08/18/2023 1:00 PM EST Note Date & Type Note Facility 08-18-2023 History of Presen t illness Narrative Physical Therapy Physical Therapy Treatment Visit Patient Name: Cesia Cardona Today's Date: 08/18/2023 No diagnosis found. Visit [...] ROM and strengthening. documented in this encounter [facility] Evaluation note Note Date & Type Note Facility Evaluation note Diagnosis Lumbar spondylosis- Primary Lumbosacral spondylosis without myelopathy Right hip pain Pain in joint, pelvic region and thigh Antalgic gait documented in this encounter [facility] Evaluation note Note Date & Type Note Facility Evaluation note Diagnosis Lumbar spondylosis- Primary Lumbosacral spondylosis without myelopathy Right hip pain Pain in joint, pelvic region and thigh Antalgic gait documented in this encounter [facility] Evaluation note Note Date & Type Note Facility Evaluation note Diagnosis Lumbar spondylosis- Primary Lumbosacral spondylosis without myelopathy Right hip pain Pain in joint, pelvic region and thigh Antalgic gait documented in this encounter [facility] Evaluation note Note Date & Type Note Facility Evaluation note Diagnosis Lumbar spondylosis- Primary Lumbosacral spondylosis without myelopathy Right hip pain Pain in joint, pelvic region and thigh Antalgic gait documented in this encounter [facility] Summary Purpose Family History No Family History Records FoundNo Family History Records Found Advance Directives No Advanced Directives Records FoundNo Advanced Directives Records Found Additional Source Comments INFORMATION SOURCE (unrecogn ized section and content) DATE CREATED AUTHOR 10/22/2022 [facility] DATE CREATED AUTHOR AUTHOR'S ORGANIZ ATION 09/30/2023 [facility] Care Teams (unrecognized sec tion and content) Nozzle Tender Relationship Specialty Start Date End Date Daphne Elias MD [address] [place] [address] PCP - General Family Medicine 04/25/23 Nozzle Tender Relationship Specialty Start Date End Date Daphne Elias MD [address] [place] [address] PCP - General Family Medicine 04/25/23 Nozzle Tender Relationship Specialty Start Date End Date Daphne Elias MD [address] [place] [address] PCP - General Family Medicine 04/25/23 Nozzle Tender Relationship Specialty Start Date End Date Daphne Elias MD [address] [place] [address] PCP - General Family Medicine 04/25/23 Nozzle Tender Relationship Specialty Start Date End Date Daphne Elias MD [address] [place] [address] PCP - General Family Medicine 04/25/23 Nozzle Tender Relationship Specialty Start Date End Date Daphne Elias MD [address] [place] [address] PCP - General Family Medicine 04/25/23 Nozzle Tender Relationship Specialty Start Date End Date Daphne Elias MD [address] [place] [address] PCP - General Family Medicine 04/25/23 Nozzle Tender Relationship Specialty Start Date End Date Daphne Elias MD [address] [place] [address] PCP - General Family Medicine 04/25/23 Reason for Visit (unrecogniz ed section and content) Specialty Diagnoses / Procedures Referred By Contac t Referred To Contact Physical Therapy Diagnoses Spondylosis without myelopathy or radiculopathy, lumbar region Procedures [place] [facility] EVALUATION LOW COMPLEX 20 MINS Fabián Graham, BUDGET RECORD CLERK [address] [place] [address] Iris Davey, PT [address] [facility] [address] [place] [address] Referral ID Status Reason Start Date Expiration Date V isits Requested Visits Authorized [id number] Authorized 07/27/2023 01/23/2024 30 30 FOR RECORDS [...] BE BASED ON THE PRIMARY CLINICAL RECORDS. [facility] provides no warranty or guarantee of the accuracy or completeness of information in this document.
[2023-10-03 10:25] VITALS: BP 162/89; PULSE 54; RESP 18; TEMP 36.5; O2SAT 100
[2023-10-03 10:52] VITALS: BP 151/71; BP 152/74; PULSE 50; PULSE 52; RESP 16; RESP 18; O2SAT 98
--- NOTE | 2023-10-03 10:52 | W.PM.PROCNOT ---
Date of procedure: 10/03/23 Pre-op diagnosis: Lumbar spondylosis Post-op diagnosis: same as pre-op Procedure: Procedure: Bilateral L3-4, L4-5 medial branch block Medications: Bupivacaine 0.25% 6cc The patient was seen and examined in the preoperative holding area.? An informed consent was obtained and placed on the chart.? The patient was brought to the medical procedure unit and placed in the prone position.? A timeout was completed verifying correct patient, procedure site, positioning, plan, and special equipment.? Using aseptic technique, the needle was placed at left L3. Under direct fluoroscopic visualization a Quincke-tipped spinal needle was advanced to the junction of the superior articulating process with the transverse process at the designated medial branch segment.? Preceded by negative aspiration, the above-mentioned injectate was placed in 1 mL aliquots.? The procedure was repeated at left L4, 5.? The needle was removed and insertion site was covered. The same procedure, at the same levels, was completed on the right side. The patient was taken to the postprocedural recovery area and monitored for an appropriate length of time before found suitable for discharge in the company of a responsible adult. Anesthesia: Local Surgeon: Pamela Campbell Pathology: none sent Condition: stable Disposition: no change
[2023-10-03] MEDS: LIDOCAINE HCL 2% PF 100 MG/5 ML VIAL 1 ML INJ (10:53)
[2023-10-03] MEDS: BUPIVACAINE HCL 0.25% PF 25 MG/10 ML VIAL 8 ML INJ (10:53)
== END 2023-10-03 10:56 | disposition home or self-care (01) ==
LOC: SURGOUT 09:19
PROVIDERS: PCP Family Medicine; Visit Provider Anesthesiology
DX: M47.816 Spondylosis without myelopathy or radiculopathy, lumbar region (principal)
CPT/HCPCS: 64493; 64494

== ENCOUNTER 2023-10-12 12:20 | Outpatient (OUT) | payer MEDICARE, OTHER, SELFPAY ==
--- NOTE | 2023-10-12 12:34 | P.CN_ITS ---
Consult Note: HPI Data of Consult Patient: known to practice within the last 3 years Consult date: 07/27/23 Requesting Physician: Lynn Graham NP Primary Care Provider: Julio Elias MD Consult Narrative Reason for consult: low back pain Narrative: Cesia Cardona a pleasant 68 year old female presents for evaluation and management of chronic low back pain without radiculopathy. Pain today 0/10 increaing to 7/10 in low back which is aggravated with all activity bending twisting standing and improves with sitting. Patient is utilizing marijuana, finds benefit from mobic. Please note she is on fosamax now for bone density. Patient was evaluated by ortho and deemed non surgical for right hip pain at this time. The patient has had over 3 months of moderate to severe low back pain with functional impairment and inadequate response to conservative care including NSAIDS (unless there are contraindication such as concurrent blood thinners), multiple oral or topical pain medications, and home exercise program/physical therapy.?Patient has completed >6 weeks of guided home exercise program and/or formal physical therapy program without relief of their symptoms.?I have reviewed the imaging of the lumbar spine and no red flags were identified.? The imaging reveals radiographic findings consistent with lumbar spondylosis. The Oswestry Disability Index was completed, and the patient scored a 26%.?Patient recently underwent bilateral L3-4 L4-5 facet medial branch block #1 with >80% improvement in pain and functional ability immediately following and days after the injection. cc:: CC: Lynn Graham NP Review of Systems ROS Status of ROS 10 or more systems reviewed and unremark able except as noted in history and below Musculoskeletal Reports: back pain and joint pain [facility] Medical History (Updated 09/22/23 @ 11:16 by Lisa Collins) Osteoarthritis ?M19.90 - Unspecified osteoarthritis, unspecified site (ICD-10) Obesity ?E66.9 - Obesity, unspecified (ICD-10) Goiter ?E04.9 - Nontoxic goiter, unspecified (ICD-10) High cholesterol ?E78.00 - Pure hypercholesterolemia, unspecified (ICD-10) Hypertension ?I10 - Essential (primary) hypertension (ICD-10) Osteoporosis ?M81.0 - Age-related osteoporosis without current pathological fracture (ICD- 10) Lumbar spondylosis ?M47.816 - Spondylosis without myelopathy or radiculopathy, lumbar region (ICD-10) Chronic low back pain ?M54.50 - Low back pain, unspecified (ICD-10) ?G89.29 - Other chronic pain (ICD-10) Surgical History S/P total knee arthroplasty ?Z96.659 - Presence of unspecified artificial knee joint (ICD-10) H/O thumb surgery ?Z98.890 - Other specified postprocedural states (ICD-10) Meds Home Medications and Allergies Home Medications ?Medication ?Instructions ?Recorded ?Confirmed ?Type alendronate 70 mg tablet 70 mg PO QWEEK 07/27/23 10/03/23 History calcium carbonate 600 mg-vitamin 1 tab PO BID 07/27/23 10/03/23 History D3 5 mcg (200 unit) tablet (Calcium 600 + D(3)) docusate sodium 100 mg capsule 100 mg PO .HS PRN constipation 07/27/23 10/03/23 History famotidine 20 mg tablet 20 mg PO .HS 07/27/23 10/03/23 History loratadine 10 mg tablet (Claritin) 10 mg PO DAILY 07/27/23 10/03/23 History meloxicam 15 mg tablet 15 mg PO DAILY 07/27/23 10/03/23 History metoprolol succinate 50 mg capsule 50 mg PO BID 07/27/23 10/03/23 History sprinkle, ext. release 24 hr multivitamin 1 tab PO DAILY 07/27/23 10/03/23 History omeprazole 20 mg capsule,delayed 20 mg PO DAILY 07/27/23 10/03/23 History release pravastatin 20 mg tablet 20 mg PO DAILY 07/27/23 10/03/23 History secukinumab 150 mg/mL subcutaneous 150 mg subcut .[id number] 07/27/23 10/03/23 History pen injector (Cosentyx Pen) sennosides 8.6 mg capsule (senna) 8.6 mg PO .HS PRN constipation 07/27/23 10/03/23 History Allergies Allergy/AdvReac Type Severity Reaction Status Date / Time No Known Drug Allergies Allergy Verified 10/03/23 10:22 Exam Constitutional Documenting provider has reviewed patient's vital signs: yes Common normals: no apparent distress, oriented x3, healthy appearing, alert and well nourished General appearance: cooperative HENMT Common normals: normocephalic, hearing grossly normal bilaterally and moist oral mucous membranes Head and scalp: normocephalic Eye Common normals: PERRL Pupil: PERRL Neck & C-Spine Common normals: full ROM General: normal visual inspection Chest Common normals: inspection of chest normal Respiratory Common normals: normal respiratory effort, no retractions and no use of accessory muscles Back & Pelvis Lumbar spine/lower back: pain with ROM and straight leg raise negative bilaterally Sacroiliac joints: SI joints normal Other: positive facet loading Extremity Common normals: normal to inspection and full ROM Right lower extremity: hip joint Other: pain with internal and external rotation reports popping sensation intermittently Neuro Common normals: oriented x3, CN's II-XII intact bilaterally, moves all extremities, no focal motor deficits, no sensory deficits noted and deep tendon reflexes 2+ bilaterally Sensorium/orientation: alert Motor exam: strength 5/5 throughout and no movement abnormalities noted Psych Common normals: mental status grossly normal, thought process normal, cooperative, affect normal, speech normal and activity/motor behavior normal Speech: normal speech Thought process: normal thought process Results Additional Findings Additional findings: If on a controlled substance or opioids, I have checked an [place]AR[place] report on this patient and there are no aberrancies noted in the prescribing history.??If on a controlled substance or opioid a drug screen was completed and reviewed within the last year, and if there has not been a drug screen completed we ordered one today to monitor higher risk, state monitored pain medication use. As part of providing excellent, safe, comprehensive care, the following was completed at our patient's visit: 1. A medication reconciliation and review to ensure accurate knowledge of current/active medications, including asking our patients to inform us about any [id number] medications or herbal remedies/nutritional supplements/alternative remedies. 2. A review to specifically ensure our patients have had annual screening for s creening for depression, screening for tobacco use, and screening for unhealthy alcohol use. For concerning screenings had a discussion with the patient, provided patient education, and recommended follow-up with primary care provider when appropriate. If patient noted with a risk of falling, they received education on strength, gait, and balance training to prevent future risk of falling. Assessment and Plan Assessment and Plan (1) Lumbar spondylosis: (2) Chronic low back pain: (3) Right hip pain: Plan bilateral L3-4 L4-5 facet medial branch blocks x2 working towards thermal RFA continue HEP/PT as tolerated continue current medications continue NNCP, marijuana use f/u 1 week after procedure
== END 2023-10-12 12:21 | disposition home or self-care (01) ==
LOC: PM 12:21
PROVIDERS: PCP Family Medicine; Visit Provider Nurse Practitioner
DX: M47.816 Spondylosis without myelopathy or radiculopathy, lumbar region (principal); M54.50 Low back pain, unspecified; M25.551 Pain in right hip
CPT/HCPCS: G0463

== ENCOUNTER 2023-10-17 13:22 | Outpatient (OUT) | payer MEDICARE, OTHER, SELFPAY ==
--- NOTE | 2023-10-17 13:24 | MM_ITS ---
Patient Name: VENESSA PUGH MR#: [id number] : 1955 Exam Date: 10/17/2023 Ordering Doctor: DR Julio Elias . RADIOLOGY REPORT PROCEDURE: MM TOMOSYNTHESIS SCREENING BI COMPARISON: MG MAMM SCREEN 3D REGINO CAD, 10/13/2022. MG MAMM SCREEN 3D REGINO CAD, 09/09/2021. MG MAMM SCREEN REGINO W CAD, 09/08/2020. MG MAMM REGINO SCRN W CAD DIG, 06/18/2013. INDICATIONS: screening Calculator Name NCI Breast Cancer Risk Assessment Tool 5 Year Breast Cancer Risk 2.90% Lifetime Breast Cancer Risk 8.30% Personal Breast Cancer No Personal Ovarian Cancer No Treatments None Family Cancers Father with nonhotchkins cancer at age 60; Sister with basil cell carcinoma cancer at age 52. LOCATION: The [facility] BREAST COMPOSITION: Scattered areas fibroglandular density. FINDINGS: DIAGNOSTIC CATEGORY 2--BENIGN FINDING: RIGHT BREAST: No significant suspicious finding. No significant change has occurred. LEFT BREAST: No significant suspicious finding. Stable asymmetric fibroglandular tissue within upper outer quadrant. No significant change has occurred. RECOMMENDATIONS: ROUTINE MAMMOGRAM AND CLINICAL EVALUATION IN 12 MONTHS. PLEASE NOTE: A NORMAL MAMMOGRAM DOES NOT EXCLUDE THE POSSIBILITY OF BREAST CANCER. A CLINICALLY SUSPICIOUS PALPABLE LUMP SHOULD BE BIOPSIED. Dictated by: Paulino Mendoza M.D. on 10/19/2023 at 12:27 Approved by: Paulino Mendoza M.D. on 10/19/2023 at 13:40
--- OUTSIDE RECORDS SUMMARY | 2023-10-17 13:30 | XMS_ITS | CCD ---
Author Organization [facility] Care Team Providers Care Vamp Wetter Name Role Phone CURT ., DR SERNA Attending Unavailable CURT ., DR SERNA Consulting Unavailable CURT ., DR SERNA Primary Care Unavailable CURT ., DR SERNA Admitting Unavailable ZIEBER, DR PAULINO Liu Consulting Unavailable Curt CHUN, Daphne Calles Primary Care Provider [phone] Shannan CHUN, Pamela Zheng Attending Unavailable KARLA TYLER Attending Unavailable DAVEY, IRIS L [...] Facility (1 source) Leucine Drug Allergy [facility] Repository (1 source) Misc-Other; Translations: [Mis-Other] Propensity to adverse reactions (disorder) [facility] Medications Current Medications Medication Drug [...] bone density and structure, unspecified site; Translations: [[facility] D/O BONE DEN STRUCT UNS SITE] [...] : DR DAPHNE ELIAS . Admission #: [id number] Family : Order #: [id number] CLICK HERE TO VIEW EXAM RADIOLOGY REPORT [...] carcinoma cancer at age 50. LOCATION: [facility] BREAST COMPOSITION: Scattered areas fibroglandular density. [...] Mendoza M.D. on 10/13/2022 at 13:51 Normal [facility] XR DEXA BONE DENSITYon 10-13 XR [...] authenticated by: PAULINO MENDOZA Date: 2022-10-13 11:38 [facility] Encounters Encounter Date Encounter Type Care Provider Facility Start: 10-11-2023 End: 10-11-2023 ambulatory IRIS L DAVEY Not Available Start: 10-06-2023 End: 10-06-2023 ambulatory IRIS L DAVEY Not Available Start: 10-04-2023 End: 10-04-2023 ambulatory IRIS L DAVEY Not Available Start: 10-03-2023 End: 10-04-2023 ambulatory Pamela Campbell MD Facility:[facility] Start: 09-29-2023 End: 09-29-2023 ambulatory IRIS L DAVEY Not Available Start: 09-27-2023 End: 09-27-2023 ambulatory IRIS L DAVEY Not Available Start: 09-01-2023 Bamboo flowsheet Iris L Davey PT Work Phone: [facility] Start: 09-01-2023 Bamboo flowsheet Iris L Davey PT Work Phone: [facility] Start: 09-01-2023 End: 09-01-2023 ambulatory IRIS L DAVEY Not Available Start: 09-01-2023 End: 09-01-2023 ambulatory Iris L Davey PT Work Phone: [facility] Comment on above: Lumbar spondylosis ( Primary Dx); Right hip pain; Antalgic gait Start: 08-30-2023 Bamboo flowsheet Iris L Davey PT Work Phone: [facility] Start: 08-30-2023 Bamboo flowsheet Iris L Davey PT Work Phone: [facility] Start: 08-30-2023 End: 08-30-2023 ambulatory Iris L Davey PT Work Phone: [facility] Comment on above: Lumbar spondylosis ( Primary Dx); Right hip pain; Antalgic gait Start: 08-25-2023 End: 08-25-2023 ambulatory Iris L Davey PT Work Phone: [facility] Comment on above: Lumbar spondylosis ( Primary Dx); Right hip pain; Antalgic gait Start: 08-23-2023 End: 08-23-2023 ambulatory IRIS L DAVEY Not Available Start: 08-19-2023 Chart abstracting Iris L Davey PT Work Phone: [facility] Start: 08-18-2023 Bamboo flowsheet Iris L Davey PT Work Phone: [facility] Start: 08-18-2023 Bamboo flowsheet Iris L Davey PT Work Phone: [facility] Start: 08-18-2023 End: 08-18-2023 ambulatory Iris L Davey PT Work Phone: [facility] Comment on above: Lumbar spondylosis [...] Not Available Start: 07-25-2023 End: 07-25-2023 ambulatory KRALA TYLER Not Available Start: 06-13-2023 End: 06-13-2023 ambulatory LORE BLACK Not Available Start: 10-13-2022 End: 10-14-[address] DAPHNE ELIAS . Facility: Plan of Treatment Date Care Activity Detail Author Start: 07-26-2024 End: 07-26-2024 Patient encounter procedure 07/26/2024 1:20 PM EST Office Visit [facility] [address] [place] [id number] Karla Tyler, MIDDLE [employer] INTERMED[employer]ATE [employer]CHO[employer] PRINCIPAL-FOOD BEVERAGE SUPERVISOR [address] [place] [address] [facility] Start: 10-13-2023 End: 10-13-2023 ambulatory 10/13/2023 1:00 PM EDT Treatment [facility] [address] [place] [address] Davey, Iris L, PT [address] [place] [address] [facility] Start: 10-11-2023 End: 10-11-2023 ambulatory 10/11/2023 1:00 PM EDT Treatment [facility] [address] [place] [address] Davey, Iris L, PT [address] [place] [address] [facility] Start: 10-06-2023 End: 10-06-2023 ambulatory 10/06/2023 1:00 PM EDT Treatment [facility] PT [address] [place] [address] Davey, Iris L, PT [address] [place] [address] [facility] PT Start: 10-04-2023 End: 10-04-2023 ambulatory 10/04/2023 1:00 PM EDT Treatment [facility] [address] [place] [address] Davey, Iris L, PT [address] [place] [address] [facility] PT Start: 09-29-2023 End: 09-29-2023 ambulatory 09/29/2023 1:00 PM EDT Treatment [facility] [address] [place] [address] Davey, Iris L, PT [address] [place] [address] [facility] PT Start: 09-27-2023 End: 09-27-2023 ambulatory 09/27/2023 2:00 PM EDT Treatment [facility] [address] [place] [address] Iris Davey L, PT [address] [place] [address] [facility] Start: 09-01-2023 End: 09-01-2023 ambulatory [facility] Comment on above: Arrived Start: 08-30-2023 End: 08-30-2023 ambulatory [facility] Comment on above: Arrived Start: 08-25-2023 End: 08-25-2023 ambulatory 08/25/2023 1:00 PM EST Treatment [facility] [address] [place] [address] Iris Davey L, PT [address] [place] [address] [facility] Start: 08-23-2023 End: 08-23-2023 ambulatory 08/23/2023 1:00 PM EST Treatment [facility] [address] [place] [address] Iris Davey L, PT [address] [place] [address] [facility] Start: 08-18-2023 End: 08-18-2023 ambulatory 08/18/2023 1:00 PM EST Treatment [facility] [address] [place] [address] Iris Davey L, PT [address] [place] [address] Arrived [facility] Comment on above: Arrived Start: 1993 Screening for malign ant neoplasm of breast Mammogram [facility] Start: 1955 Screening for malign ant neoplasm of colon [facility] Immunizations Immunization Date Immunization Notes Care Provider Shanice flaquito 04-22-2022 SARS-CoV-2, Unspecified Daisy Davey PT Work Phone: [facility] Payers Date Payer Category Payer Unknown [id number] 2018 Medicare [id number] 1959 Medicare [id number] 1959 Unknown [id number] 1955 Unknown [id number] 2.16.84 0.1.817304.3.579.2.593 1953 Unknown [id number] 2.16. 840.1.133720.3.579.2.196 1955 Unknown [id number] 2.16.84 0.1.370061.3.579.2.1259 1953 Unknown [id number] 2.16.84 0.1.800546.3.579.2.1259 1953 Unknown [id number] 2.16.84 0.1.692615.3.579.2.1259 1953 Unknown [id number] 2.16.84 0.1.237814.3.579.2.1259 1953 Unknown [id number] 2.16.84 0.1.049107.3.579.2.1259 1953 Unknown [id number] 2.16.84 0.1.260691.3.579.2.1259 1953 Unknown [id number] 2.16.84 0.1.388208.3.579.2.1259 1953 Unknown [id number] 2.16.84 0.1.125870.3.579.2.1259 1953 Unknown [id number] 2.16.84 0.1.179659.3.579.2.1259 1953 Unknown [id number] 2.16.84 0.1.566558.3.579.2.1259 1953 Unknown [id number] 2.16.84 0.1.323220.3.579.2.1259 1953 Unknown [id number] 2.16.84 0.1.034472.3.579.2.1259 1953 Unknown [id number] 2.16.84 0.1.780245.3.579.2.1259 1953 Unknown [id number] 2.16.84 0.1.493706.3.579.2.1259 1953 Unknown [id number] 2.16.84 0.1.930816.3.579.2.1259 1953 Unknown [id number] 2.16.84 0.1.059820.3.579.2.1259 1953 Unknown [id number] 2.16.840 .1.157581.3.579.2.1259 Social History Date Type Detail Facility Start: 04-25-2023 Tobacco smoking status OHIS Never sm oked tobacco [facility] Start: 04-25-2023 Tobacco use and exposure Smoke less tobacco non-user [facility] Start: 07-25-2023 Alcohol intake Current drinke r of alcohol (finding) [facility] Start: 07-25-2023 End: 08-01-2023 History of Social function [facility] Start: 07-25-2023 End: 08-01-2023 Alcohol [...] [facility] Start: 04-20-2023 Sexual orientation Heterosexual (jimmy joyce) [facility] History of Present illness Narrative 09-01-2023 Iris Davey, PT - 09/01/2023 10:30 AM EST Note Date & Type Note Facility 09-01-2023 History of Presen t illness Narrative Physical Therapy Physical Therapy Treatment Visit Patient Name: Cesia Pugh Today's Date: 09/01/2023 Encounter Diagnoses Name Primary? Lumbar spondylosis Yes Right hip pain Antalgic gait Visit number: 10 Supervised time: 33 Total time: 67 Subjective Pain: 0/10. I feel pretty good today. Hasn't [id number] much activity yet this morning. Overall progress: [...] management on 09/01/23. documented in this encounter [facility] History of Present illness Narrative [...] ROM and strengthening. documented in this encounter [facility] Evaluation note Note Date & Type Note Facility Evaluation note Diagnosis Lumbar spondylosis- Primary Lumbosacral spondylosis without myelopathy Right hip pain Pain in joint, pelvic region and thigh Antalgic gait documented in this encounter [facility] Evaluation note Note Date & Type Note Facility Evaluation note Diagnosis Lumbar spondylosis- Primary Lumbosacral spondylosis without myelopathy Right hip pain Pain in joint, pelvic region and thigh Antalgic gait documented in this encounter [facility] Evaluation note Note Date & Type Note Facility Evaluation note Diagnosis Lumbar spondylosis- Primary Lumbosacral spondylosis without myelopathy Right hip pain Pain in joint, pelvic region and thigh Antalgic gait documented in this encounter [facility] Evaluation note Note Date & Type Note Facility Evaluation note Diagnosis Lumbar spondylosis- Primary Lumbosacral spondylosis without myelopathy Right hip pain Pain in joint, pelvic region and thigh Antalgic gait documented in this encounter [facility] Summary Purpose Family History No Family History Records FoundNo Family History Records FoundNo Family History Records Found Advance Directives No Advanced Directives Records FoundNo Advanced Directives Records FoundNo Advanced Directives Records Found Additional Source Comments INFORMATION SOURCE (unrecogn ized section and content) DATE CREATED AUTHOR 10/22/2022 [facility] DATE CREATED AUTHOR AUTHOR'S ORGANIZ ATION 10/08/2023 [facility] DATE CREATED AUTHOR AUTHOR'S ORGANIZ ATION 10/12/2023 [facility] dical Specialists [employer] Care Teams (unrecognized sec tion and content) Vamp Wetter Relationship Specialty Start Date End Date Daphne Elias MD [address] [place] [address] PCP - General Family Medicine 04/25/23 Vamp Wetter Relationship Specialty Start Date End Date Daphne Elias MD [address] [place] [address] PCP - General Family Medicine 04/25/23 Vamp Wetter Relationship Specialty Start Date End Date Daphne Elias MD [address] [facility] [place] [address] PCP - General Family Medicine 04/25/23 Vamp Wetter Relationship Specialty Start Date End Date Daphne Elias MD [address] [facility] [place] [address] PCP - General Family Medicine 04/25/23 Vamp Wetter Relationship Specialty Start Date End Date Daphne Elias MD [address] [facility] [place] [address] PCP - General Family Medicine 04/25/23 Vamp Wetter Relationship Specialty Start Date End Date Daphne Elias MD [address] [facility] [place] [address] PCP - General Family Medicine 04/25/23 Vamp Wetter Relationship Specialty Start Date End Date Daphne Elias MD [address] [facility] [place] [address] PCP - General Family Medicine 04/25/23 Vamp Wetter Relationship Specialty Start Date End Date Daphne Elias MD [address] [facility] [place] [address] PCP - General Family Medicine 04/25/23 Reason for Visit (unrecogniz ed section and content) Specialty Diagnoses / Procedures Referred By Contac t Referred To Contact Physical Therapy Diagnoses Spondylosis without myelopathy or radiculopathy, lumbar region Procedures CT PHYSICAL THERAPY EVALUATION LOW COMPLEX 20 MINS Fabián Graham, MANUFACTURING SALES REPRESENTATIVE [address] [place] [address] Iris Davey, PT [address] [place] [address] Referral ID Status Reason Start Date Expiration Date V isits Requested Visits Authorized [id number] Authorized 07/27/2023 01/23/2024 30 30 FOR RECORDS [...] BE BASED ON THE PRIMARY CLINICAL RECORDS. [facility] [employer] [facility]. provides no warranty or guarantee of the accuracy or completeness of information in this document.
== END 2023-10-17 13:23 | disposition home or self-care (01) ==
LOC: MAMMO 13:22
PROVIDERS: PCP Family Medicine; Visit Provider Family Medicine
DX: Z12.31 Encounter for screening mammogram for malignant neoplasm of breast (principal); Z80.8 Family history of malignant neoplasm of other organs or systems
CPT/HCPCS: 77063; 77067

== ENCOUNTER 2023-10-28 12:09 | Outpatient (OUT) | payer MEDICARE, OTHER, SELFPAY ==
--- OUTSIDE RECORDS SUMMARY | 2023-10-28 12:22 | XMS_ITS | CCD ---
Author Organization [facility] Care Team Providers Care Interface Engineer Name Role Phone CURT ., DR SERNA Attending Unavailable CURT ., DR SERNA Consulting Unavailable CURT ., DR SERNA Primary Care Unavailable CURT ., DR SERNA Admitting Unavailable ZIEBER, DR PAULINO Liu Consulting Unavailable Curt CHUN, Daphne Calles Primary Care Provider [phone] Shannan CHUN, Pamela Zheng Attending Unavailable KARLA [...] Unavailable DAVEY, IRIS L Attending Unavailable AMIE, FBAIÁN Referring Unavailable APLINGLORE Attending Unavailable DAVEY, IRIS L Attending Unavailable AMIE, FABIÁN Referring Unavailable Allergies Allergy Classification Reported Allergen(s) Allergy Type Date of Onset Reaction(s) Facility (1 source) Leucine Drug Allergy [facility] Repository (1 source) Misc-Other; Translations: [Misc-Other] Propensity to adverse reactions (disorder) [facility] Repository Medications Current Medications Medication Drug [...] or underarms, 30 day supply 30 g 11 07/25/2023 Active famotidine 20 mg oral tablet [...] bone density and structure, unspecified site; Translations: [[facility] D/O BONE DEN STRUCT UNS SITE] Onset: [...] : DR DAPHNE ELIAS . Admission #: [id number] Family : Order #: [id number] CLICK HERE TO VIEW EXAM RADIOLOGY REPORT [...] cancer at age 50. LOCATION: [facility] BREAST COMPOSITION: Scattered areas fibroglandular density. [...] Mendoza M.D. on 10/13/2022 at 13:51 Normal [facility] XR DEXA BONE DENSITYon 10-13 XR DEXA [...] by: PAULINO MENDOZA Date: 2022-10-13 11:38 Normal [facility] Encounters Encounter Date Encounter Type Care Provider Facility Start: 10-26-2023 End: 10-26-2023 ambulatory IRIS L DAVEY Not Available Start: 10-19-2023 End: 10-19-2023 ambulatory IRIS L DAVEY Not Available Start: 10-13-2023 End: 10-13-2023 ambulatory IRIS L DAVEY Not Available Start: 10-11-2023 End: 10-11-2023 ambulatory IRIS L DAVEY Not Available Start: 10-06-2023 End: 10-06-2023 ambulatory IRIS L DAVEY Not Available Start: 10-04-2023 End: 10-04-2023 ambulatory IRIS L DAVEY Not Available Start: 10-03-2023 End: 10-04-2023 ambulatory Pamela Campbell MD Facility:[facility] Start: 09-29-2023 End: 09-29-2023 ambulatory IRIS L DAVEY Not Available Start: 09-27-2023 End: 09-27-2023 ambulatory IRIS L DAVEY Not Available Start: 09-01-2023 Bamboo flowsheet Iris L Davey PT Work Phone: [facility] Start: 09-01-2023 Bamboo flowsheet Iris L Davey PT Work Phone: [facility] Start: 09-01-2023 End: 09-01-2023 ambulatory IRIS L DAVEY Not Available Start: 09-01-2023 End: 09-01-2023 ambulatory Iris L Davey PT Work Phone: [facility] Comment on above: Lumbar spondylosis ( Primary Dx); Right hip pain; Antalgic gait Start: 08-30-2023 Bamboo flowsheet Iris L Davey PT Work Phone: [facility] Start: 08-30-2023 Bamboo flowsheet Iris L Davey PT Work Phone: [facility] Start: 08-30-2023 End: 08-30-2023 ambulatory Iris L Davey PT Work Phone: [facility] PT Comment on above: Lumbar spondylosis ( Primary Dx); Right hip pain; Antalgic gait Start: 08-25-2023 End: 08-25-2023 ambulatory Iris L Davey PT Work Phone: [facility] PT Comment on above: Lumbar spondylosis ( Primary Dx); Right hip pain; Antalgic gait Start: 08-23-2023 End: 08-23-2023 ambulatory IRIS L DAVEY Not Available Start: 08-19-2023 Chart abstracting Iris L Davey PT Work Phone: [facility] Start: 08-18-2023 Bamboo flowsheet Iris L Davey PT Work Phone: [facility] Start: 08-18-2023 Bamboo flowsheet Iris L Davey PT Work Phone: [facility] Start: 08-18-2023 End: 08-18-2023 ambulatory Iris L Davey PT Work Phone: [facility] PT Comment on above: Lumbar [...] procedure 07/26/2024 1:20 PM EST Office Visit [facility] [address] [place] [address] Karla Tyler, TOOL ADJUSTER-EMERGENCY ROOM CLERK [address] [place] [address] [facility] Start: 10-13-2023 End: 10-13-2023 ambulatory 10/13/2023 1:00 PM EDT Treatment [facility] [address] [place] [address] Davey, Iris L, PT [address] [place] [address] [facility] PT Start: 10-11-2023 End: 10-11-2023 ambulatory 10/11/2023 1:00 PM EDT Treatment [facility] PT [address] [place] [address] Davey, Iris L, PT [address] [place] [address] [facility] PT Start: 10-06-2023 End: 10-06-2023 ambulatory 10/06/2023 1:00 PM EDT Treatment [facility] [address] [place] [address] Davey, Iris L, PT [address] [place] [address] [facility] PT Start: 10-04-2023 End: 10-04-2023 ambulatory 10/04/2023 1:00 PM EDT Treatment [facility] [address] [place] [address] Davey, Iris L, PT [address] [place] [address] [facility] PT Start: 09-29-2023 End: 09-29-2023 ambulatory 09/29/2023 1:00 PM EDT Treatment [facility] [address] [place] [address] Jolynn Iris L, PT [address] [place] [address] [facility] Start: 09-27-2023 End: 09-27-2023 ambulatory 09/27/2023 2:00 PM EDT Treatment [facility] [address] [place] [address] Iris Davey L, PT [address] [place] [address] [facility] Start: 09-01-2023 End: 09-01-2023 ambulatory [facility] Comment on above: Arrived Start: 08-30-2023 End: 08-30-2023 ambulatory [facility] Comment on above: Arrived Start: 08-25-2023 End: 08-25-2023 ambulatory 08/25/2023 1:00 PM EST Treatment [facility] [address] [place] [address] Iris Davey L, PT [address] [place] [address] [facility] Start: 08-23-2023 End: 08-23-2023 ambulatory 08/23/2023 1:00 PM EST Treatment [facility] [address] [place] [address] Jolynn Iris L, PT [address] [place] [address] [facility] Start: 08-18-2023 End: 08-18-2023 ambulatory 08/18/2023 1:00 PM EST Treatment [facility] [address] [place] [address] Iris Davey, PT [address] [place] [address] Arrived [facility] Comment on above: Arrived Start: 1993 Screening for malign ant neoplasm of breast Mammogram [facility] Start: 1953 Screening for malign ant neoplasm of colon [facility] Immunizations Immunization Date Immunization Notes Care Provider Fa lelety 04-22-2022 SARS-CoV-2, Unspecified Germanparesh liu Jolynn PT Work Phone: [facility] Payers Date Payer Category Payer Unknown [id number] 2018 Medicare [id number] 1959 Medicare [id number] 1959 Unknown [id number] 1953 Unknown [id number] 2.16.84 0.1.836818.3.579.2.593 1953 Unknown [id number] 2.16. 840.1.861826.3.579.2.196 1953 Unknown [id number] 2.16.84 0.1.788553.3.579.2.1259 1953 Unknown [id number] 2.16.84 0.1.638050.3.579.2.1259 1953 Unknown [id number] 2.16.84 0.1.106116.3.579.2.1259 1953 Unknown [id number] 2.16.84 0.1.011591.3.579.2.1259 1953 Unknown [id number] 2.16.84 0.1.967541.3.579.2.1259 1953 Unknown [id number] 2.16.84 0.1.010330.3.579.2.1259 1953 Unknown [id number] 2.16.84 0.1.467347.3.579.2.1259 1953 Unknown [id number] 2.16.84 0.1.431062.3.579.2.1259 1953 Unknown [id number] 2.16.84 0.1.663233.3.579.2.1259 1953 Unknown [id number] 2.16.84 0.1.048265.3.579.2.1259 1953 Unknown [id number] 2.16.84 0.1.449183.3.579.2.1259 1953 Unknown [id number] 2.16.84 0.1.876032.3.579.2.1259 1953 Unknown [id number] 2.16.84 0.1.996723.3.579.2.1259 1953 Unknown [id number] 2.16.84 0.1.373370.3.579.2.1259 1953 Unknown [id number] 2.16.84 0.1.198802.3.579.2.1259 1953 Unknown [id number] 2.16.84 0.1.725360.3.579.2.1259 1953 Unknown [id number] 2.16.84 0.1.817830.3.579.2.1259 1953 Unknown [id number] 2.16.84 0.1.194270.3.579.2.1259 1953 Unknown [id number] 2.16.84 0.1.567437.3.579.2.1259 1953 Unknown [id number] 2.16.840 .1.613096.3.579.2.1259 Social History Date Type Detail Facility Start: 04-25-2023 Tobacco smoking status MSIS Never sm oked tobacco [facility] Start: [...] Alcohol Comment coffee 3-4 cups per day [facility] Start: 1955 Sex Assigned At Female [facility] Start: 04-20-2023 Gender identity Identifies as female gender (finding) [facility] Start: 04-20-2023 Sexual orientation Heterosexual (fin ding) [facility] History of Present illness Narrative [...] 0/10. I feel pretty good today. Hasn't [id number] much activity yet this morning. Overall progress: Patient reports ~90% overall improvement in hip pain and mobility since SOC. Back pain is what is limiting her functional mobility at this time. Uses [facility] for long distance community negotiation. Will be [...] her functional mobility at this time. Uses [facility] for long distance community negotiation. Will be [...] ROM and strengthening. documented in this encounter [facility] Healthcare Evaluation note Note Date & Type Note Facility Evaluation note Diagnosis Lumbar spondylosis- Primary Lumbosacral spondylosis without myelopathy Right hip pain Pain in joint, pelvic region and thigh Antalgic gait documented in this encounter [facility] Healthcare Evaluation note Note Date & [...] thigh Antalgic gait documented in this encounter [facility] Healthcare Evaluation note Note Date & [...] and content) DATE CREATED AUTHOR 10/22/2022 [facility] pital DATE CREATED AUTHOR AUTHOR'S ORGANIZ ATION 10/08/2023 [facility] DATE CREATED AUTHOR AUTHOR'S ORGANIZ ATION 10/27/2023 [facility] dical Specialists [facility] Care Teams (unrecognized sec tion and content) Interface Engineer Relationship Specialty Start Date End Date Daphne Elias MD [address] [place] [facility] [address] PCP - General Family Medicine 04/25/23 Interface Engineer Relationship Specialty Start Date End Date Daphne Elias MD [address] [place] [facility] [address] PCP - General Family Medicine 04/25/23 Interface Engineer Relationship Specialty Start Date End Date Daphne Elias MD [address] [place] [facility] [address] PCP - General Family Medicine 04/25/23 Interface Engineer Relationship Specialty Start Date End Date Daphne Elias MD [address] [place] [facility] [address] PCP - General Family Medicine 04/25/23 Interface Engineer Relationship Specialty Start Date End Date Daphne Elias MD [address] [place] [facility] [address] PCP - General Family Medicine 04/25/23 Interface Engineer Relationship Specialty Start Date End Date Daphne Elias MD [address] [place] [facility] [address] PCP - General Family Medicine 04/25/23 Interface Engineer Relationship Specialty Start Date End Date Daphne Elias MD [address] [place] [address] PCP - General Family Medicine 04/25/23 Interface Engineer Relationship Specialty Start Date End Date Daphne Elias MD [address] [place] [address] PCP - General Family Medicine 04/25/23 Reason for Visit (unrecogniz ed section and content) Specialty Diagnoses / Procedures Referred By Contac t Referred To Contact Physical Therapy Diagnoses Spondylosis without myelopathy or radiculopathy, lumbar region Procedures LA PHYSICAL THERAPY EVALUATION LOW COMPLEX 20 MINS Fabián Graham, AGENCY LEGAL COUNSEL [address] [place] [address] Iris Davey, PT [address] [facility] [address] [place] [address] Referral ID Status Reason Start Date Expiration Date V isits Requested Visits Authorized [id number] Authorized 07/27/2023 01/23/2024 30 30 FOR RECORDS [...] BE BASED ON THE PRIMARY CLINICAL RECORDS. [employer] provides no warranty or guarantee of the accuracy or completeness of information in this document.
[2023-10-28 12:42] LABS: Basophils Absolute Auto 0.1 10^3/uL (0.0-0.1); Basophils Percent Auto 1.1 % (0.2-2.0); Eosinophils Absolute Auto 0.1 10^3/uL (0.0-0.7); Eosinophils Percent Auto 2.7 % (0.9-7.0); Hemoglobin 12.9 g/dL (12.0-16.0); Immature Granulocytes Abs Auto 0.01 10^3/uL (0.00-0.03); Immature Granulocytes Pct Auto 0.2 % (0.0-0.5); Lymphocytes Absolute Auto 1.4 10^3/uL (1.2-3.8); Lymphocytes Percent Auto 30.8 % (20.5-60.0); Mean Corpuscular HGB Conc 33.1 g/dL (29.9-35.2); Mean Corpuscular Hemoglobin 33.4 pg (26.7-34.0); Mean Platelet Volume 9.5 fL (9.5-13.5); Monocytes Absolute Auto 0.6 10^3/uL (0.3-0.8); Monocytes Percent Auto 12.9 % (1.7-12.0); Neutrophils Absolute Auto 2.3 10^3/uL (1.4-6.5); Neutrophils Percent Auto 52.3 % (43.0-75.0); Platelet Count 212 10^3/uL (150-450); Red Blood Count 3.86 10^6/uL (4.20-5.40); Red Cell Distribution Width 12.9 % (11.0-15.0); White Blood Count 4.4 10^3/uL (4.0-11.0)
[2023-10-28 13:59] LABS: Alanine Aminotransferase 31 U/L (14-59); Albumin Globulin Ratio 1.1; Alkaline Phosphatase 68 U/L (46-116); Aspartate Amino Transferase 25 U/L (15-37); BUN Creatinine Ratio 21.4; Bilirubin Total 0.6 mg/dL (0.2-1.0); Calcium 9.9 mg/dL (8.5-10.1); Carbon Dioxide 25.8 mmol/L (21.0-32.0); Chloride 104 mmol/L (98-107); Chol HDL Ratio 2.1; Cholesterol 232 mg/dL (<=200); Estimated Average Glucose 105 mg/dL; Estimated GFR (African America 58 (>=60); Estimated GFR (Non-African Ame 48 (>=60); Free T3 2.47 pg/mL (2.18-3.98); Globulin 3.6 g/dL; Glucose 105 mg/dL (74-106); Glycohemoglobin A1C 5.3 % (4.5-6.2); HDL Cholesterol 111 mg/dL (40-60); Potassium 4.8 mmol/L (3.5-5.1); Sodium 139 mmol/L (136-145); Total Protein 7.6 g/dL (6.4-8.2); Triglycerides 75 mg/dL (<=150)
== END 2023-10-28 12:10 | disposition home or self-care (01) ==
LOC: LAB 12:10
PROVIDERS: PCP Family Medicine; Visit Provider Family Medicine
DX: M54.16 Radiculopathy, lumbar region (principal); I10 Essential (primary) hypertension; K21.9 Gastro-esophageal reflux disease without esophagitis; E78.00 Pure hypercholesterolemia, unspecified; R73.09 Other abnormal glucose; D64.9 Anemia, unspecified
CPT/HCPCS: 36415; 80053; 80061; 83036; 83540; 84436; 84443; 84481; 85025

== ENCOUNTER 2023-10-31 07:05 | Day surgery (SDC) | payer MEDICARE, OTHER, SELFPAY ==
--- OUTSIDE RECORDS SUMMARY | 2023-10-31 07:08 | XMS_ITS | CCD ---
Author Organization [facility] Care Team Providers Care Adjusto Writer Operator Name Role Phone CURT ., DR SERNA Attending Unavailable CURT ., DR SERNA Consulting Unavailable CURT ., DR SERNA Primary Care Unavailable CURT ., DR SERNA Admitting Unavailable ZIEBER, DR PAULINO Liu Consulting Unavailable Curt CHUN, Daphne Calles Primary Care Provider [phone] Shannan CHUN, Pamela Zheng Attending Unavailable KARLA [...] Unavailable DAVEY, IRIS L Attending Unavailable AMIE, FABÁIN Referring Unavailable DAVEY, IRIS L Attending Unavailable [...] Facility (1 source) Leucine Drug Allergy [facility] Repository (1 source) Misc-Other; Translations: [Misc-Other] Propensity to adverse reactions (disorder) [facility] Repository Medications Current Medications Medication Drug [...] bone density and structure, unspecified site; Translations: [[facility] D/O BONE DEN STRUCT UNS SITE] Onset: [...] : DR DAPHNE ELIAS . Admission #: [id number] Family : Order #: [id number] CLICK HERE TO VIEW EXAM RADIOLOGY REPORT [...] carcinoma cancer at age 50. LOCATION: [facility] BREAST COMPOSITION: Scattered areas fibroglandular density. [...] M.D. on 10/13/2022 at 13:51 Normal [facility] XR DEXA BONE DENSITYon 10-13 XR [...] by: PAULINO MENDOZA Date: 2022-10-13 11:38 Normal [facility] Encounters Encounter Date Encounter Type Care Provider [...] 10-03-2023 End: 10-04-2023 ambulatory Pamela Campbell MD Facility:[facility] Start: 09-29-2023 End: 09-29-2023 ambulatory IRIS [...] Iris L Davey PT Work Phone: [facility] PT Comment on above: Lumbar spondylosis ( Primary Dx); Right hip pain; Antalgic gait Start: 08-30-2023 Bamboo flowsheet Iris L Davey PT Work Phone: [facility] Start: 08-30-2023 Bamboo flowsheet Iris L Davey PT Work Phone: [facility] Start: 08-30-2023 End: 08-30-2023 ambulatory Iris L Davey PT Work Phone: [facility] PT Comment on above: Lumbar spondylosis ( Primary Dx); Right hip pain; Antalgic gait Start: 08-25-2023 End: 08-25-2023 ambulatory Iris L Davey PT Work Phone: [facility] PT Comment on above: Lumbar spondylosis ( Primary Dx); Right hip pain; Antalgic gait Start: 08-23-2023 End: 08-23-2023 ambulatory IRIS L DAVEY Not Available Start: 08-19-2023 Chart abstracting Iris L Davey PT Work Phone: [facility] PT Start: 08-18-2023 Bamboo flowsheet Iris L Davey PT Work Phone: [facility] Start: 08-18-2023 Bamboo flowsheet Iris L Davey PT Work Phone: [facility] PT Start: 08-18-2023 End: 08-18-2023 ambulatory Iris L Davey PT Work Phone: [facility] PT Comment on above: Lumbar spondylosis [...] procedure 07/26/2024 1:20 PM EST Office Visit [facility] [address] [place] [address] Karla Tyler, HIV PREVENTION SPECIALIST-NON DESTRUCTIVE TESTER [address] [place] [address] [facility] Start: 10-13-2023 End: 10-13-2023 ambulatory 10/13/2023 1:00 PM EDT Treatment [facility] [address] [place] [address] Davey, Iris L, PT [address] [place] [address] [facility] PT Start: 10-11-2023 End: 10-11-2023 ambulatory 10/11/2023 1:00 PM EDT Treatment [facility] PT [address] [place] [address] Davey, Iris L, PT [address] [place] [address] [facility] PT Start: 10-06-2023 End: 10-06-2023 ambulatory 10/06/2023 1:00 PM EDT Treatment [facility] PT [address] [place] [address] Davey, Iris L, PT [address] [place] [address] [facility] PT Start: 10-04-2023 End: 10-04-2023 ambulatory 10/04/2023 1:00 PM EDT Treatment [facility] PT [address] [place] [address] Davey, Iris L, PT [address] [place] [address] [facility] PT Start: 09-29-2023 End: 09-29-2023 ambulatory 09/29/2023 1:00 PM EDT Treatment [facility] [address] [place] [address] Jolynn Iris L, PT [address] [place] [address] [facility] Start: 09-27-2023 End: 09-27-2023 ambulatory 09/27/2023 2:00 PM EDT Treatment [facility] [address] [place] [address] Iris Davey L, PT [address] [place] [address] [facility] Start: 09-01-2023 End: 09-01-2023 ambulatory [facility] Comment on above: Arrived Start: 08-30-2023 End: 08-30-2023 ambulatory [facility] Comment on above: Arrived Start: 08-25-2023 End: 08-25-2023 ambulatory 08/25/2023 1:00 PM EST Treatment [facility] [address] [place] [address] rIis Davey L, PT [address] [place] [address] [facility] Start: 08-23-2023 End: 08-23-2023 ambulatory 08/23/2023 1:00 PM EST Treatment [facility] [address] [place] [address] Jolynn Iris L, PT [address] [place] [address] [facility] Start: 08-18-2023 End: 08-18-2023 ambulatory 08/18/2023 1:00 PM EST Treatment [facility] [address] [place] [address] Iris Davey, PT [address] [place] [address] Arrived [facility] Comment on above: Arrived Start: 1993 Screening for malign ant neoplasm of breast Mammogram [facility] Start: 1953 Screening for malign ant neoplasm of colon [facility] Immunizations Immunization Date Immunization Notes Care Provider Fa lelety 04-22-2022 SARS-CoV-2, Unspecified Germanparesh liu Jolynn PT Work Phone: [facility] Payers Date Payer Category Payer Unknown [id number] 2018 Medicare [id number] 1959 Medicare [id number] 1959 Unknown [id number] 1953 Unknown [id number] 2.16.84 0.1.251490.3.579.2.593 1953 Unknown [id number] 2.16. 840.1.522995.3.579.2.196 1953 Unknown [id number] 2.16.84 0.1.459345.3.579.2.1259 1953 Unknown [id number] 2.16.84 0.1.747630.3.579.2.1259 1953 Unknown [id number] 2.16.84 0.1.151735.3.579.2.1259 1953 Unknown [id number] 2.16.84 0.1.713711.3.579.2.1259 1953 Unknown [id number] 2.16.84 0.1.025667.3.579.2.1259 1953 Unknown [id number] 2.16.84 0.1.500385.3.579.2.1259 1953 Unknown [id number] 2.16.84 0.1.196215.3.579.2.1259 1953 Unknown [id number] 2.16.84 0.1.114466.3.579.2.1259 1953 Unknown [id number] 2.16.84 0.1.996151.3.579.2.1259 1953 Unknown [id number] 2.16.84 0.1.539606.3.579.2.1259 1953 Unknown [id number] 2.16.84 0.1.457996.3.579.2.1259 1953 Unknown [id number] 2.16.84 0.1.601504.3.579.2.1259 1953 Unknown [id number] 2.16.84 0.1.917922.3.579.2.1259 1953 Unknown [id number] 2.16.84 0.1.033422.3.579.2.1259 1953 Unknown [id number] 2.16.84 0.1.794323.3.579.2.1259 1953 Unknown [id number] 2.16.84 0.1.988761.3.579.2.1259 1953 Unknown [id number] 2.16.84 0.1.810217.3.579.2.1259 1953 Unknown [id number] 2.16.84 0.1.741236.3.579.2.1259 1953 Unknown [id number] 2.16.84 0.1.028085.3.579.2.1259 1953 Unknown [id number] 2.16.840 .1.003606.3.579.2.1259 Social History Date Type Detail Facility Start: 04-25-2023 Tobacco smoking status KYIS Never sm oked tobacco [facility] Start: [...] Start: 04-20-2023 Sexual orientation Heterosexual (fin ding) [facility] Healthcare History of Present illness Narrative [...] 0/10. I feel pretty good today. Hasn't [id number] much activity yet this morning. Overall progress: Patient reports ~90% overall improvement in hip pain and mobility since SOC. Back pain is what is limiting her functional mobility at this time. Uses [facility] for long distance community [...] her functional mobility at this time. Uses [facility] for long distance community [...] ROM and strengthening. documented in this encounter [facility] Healthcare Evaluation note Note Date & Type Note Facility Evaluation note Diagnosis Lumbar spondylosis- Primary Lumbosacral spondylosis without myelopathy Right hip pain Pain in joint, pelvic region and thigh Antalgic gait documented in this encounter [facility] Healthcare Evaluation note Note Date & [...] thigh Antalgic gait documented in this encounter [facility] Healthcare Evaluation note Note Date & [...] and content) DATE CREATED AUTHOR 10/22/2022 [facility] pital DATE CREATED AUTHOR AUTHOR'S ORGANIZ ATION 10/08/2023 [facility] DATE CREATED AUTHOR AUTHOR'S ORGANIZ ATION 10/27/2023 [facility] dical Specialists [facility] Care Teams (unrecognized sec tion and content) Adjusto Writer Operator Relationship Specialty Start Date End Date Daphne Elias MD [address] [facility] [place] [address] PCP - General Family Medicine 04/25/23 Adjusto Writer Operator Relationship Specialty Start Date End Date Daphne Elias MD [address] [facility] [place] [address] PCP - General Family Medicine 04/25/23 Adjusto Writer Operator Relationship Specialty Start Date End Date Daphne Elias MD [address] [facility] [place] [address] PCP - General Family Medicine 04/25/23 Adjusto Writer Operator Relationship Specialty Start Date End Date Daphne Elias MD [address] [facility] [place] [address] PCP - General Family Medicine 04/25/23 Adjusto Writer Operator Relationship Specialty Start Date End Date Daphne Elias MD [address] [facility] [place] [address] PCP - General Family Medicine 04/25/23 Adjusto Writer Operator Relationship Specialty Start Date End Date Daphne Elias MD [address] [facility] [place] [address] PCP - General Family Medicine 04/25/23 Adjusto Writer Operator Relationship Specialty Start Date End Date Daphne Elias MD [address] [place] [address] PCP - General Family Medicine 04/25/23 Adjusto Writer Operator Relationship Specialty Start Date End Date Daphne Elias MD [address] [place] [address] PCP - General Family Medicine 04/25/23 Reason for Visit (unrecogniz ed section and content) Specialty Diagnoses / Procedures Referred By Contac t Referred To Contact Physical Therapy Diagnoses Spondylosis without myelopathy or radiculopathy, lumbar region Procedures [place] PHYSICAL THERAPY EVALUATION LOW COMPLEX 20 MINS Fabián Graham, BIODIESEL PRODUCTION ASSOCIATE [address] [place] [address] Iris Davey, PT [address] [facility] [address] [place] [address] Referral ID Status Reason Start Date Expiration Date V isits Requested Visits Authorized [id number] Authorized 07/27/2023 01/23/2024 30 30 FOR RECORDS [...] BE BASED ON THE PRIMARY CLINICAL RECORDS. [employer] provides no warranty or guarantee of the accuracy or completeness of information in this document.
[2023-10-31 07:36] VITALS: BP 141/72; PULSE 55; TEMP 36.4; O2SAT 100
[2023-10-31] MEDS: LIDOCAINE HCL 2% PF 100 MG/5 ML VIAL INJ (08:25)
[2023-10-31] MEDS: BUPIVACAINE HCL 0.25% PF 25 MG/10 ML VIAL INJ (08:25)
[2023-10-31 08:26] VITALS: BP 166/72; PULSE 50; PULSE 58; O2SAT 95
[2023-10-31 08:27] VITALS: BP 159/74
--- NOTE | 2023-10-31 08:29 | W.PM.PROCNOT ---
Date of procedure: 10/31/23 Pre-op diagnosis: Lumbar spondylosis Post-op diagnosis: same as pre-op Procedure: Procedure: Bilateral L3-4, L4-5 medial branch block Medications: Bupivacaine 0.25% 6cc The patient was seen and examined in the preoperative holding area.? An informed consent was obtained and placed on the chart.? The patient was brought to the medical procedure unit and placed in the prone position.? A timeout was completed verifying correct patient, procedure site, positioning, plan, and special equipment.? Using aseptic technique, the needle was placed at left L3. Under direct fluoroscopic visualization a Quincke-tipped spinal needle was advanced to the junction of the superior articulating process with the transverse process at the designated medial branch segment.? Preceded by negative aspiration, the above-mentioned injectate was placed in 1 mL aliquots.? The procedure was repeated at left L4, 5.? The needle was removed and insertion site was covered. The same procedure, at the same levels, was completed on the right side. The patient was taken to the postprocedural recovery area and monitored for an appropriate length of time before found suitable for discharge in the company of a responsible adult. Anesthesia: Local Surgeon: Pamela Campbell Pathology: none sent Condition: stable Disposition: no change
== END 2023-10-31 08:33 | disposition home or self-care (01) ==
PROVIDERS: PCP Family Medicine; Visit Provider Anesthesiology
DX: M47.816 Spondylosis without myelopathy or radiculopathy, lumbar region (principal)
CPT/HCPCS: 64493; 64494

== ENCOUNTER 2023-11-09 12:47 | Outpatient (OUT) | payer MEDICARE, OTHER, SELFPAY ==
--- NOTE | 2023-11-09 13:15 | P.CN_ITS ---
Consult Note: HPI Data of Consult Patient: known to practice within the last 3 years Consult date: 07/27/23 Requesting Physician: Lynn Graham NP Primary Care Provider: Julio Elias MD Consult Narrative Reason for consult: low back pain Narrative: Cesia Cardona a pleasant 68 year old female presents for evaluation and management of chronic low back pain without radiculopathy. Pain today 3/10 increaing to 7/10 in low back which is aggravated with all activity bending twisting standing and improves with sitting. Patient is utilizing marijuana, finds benefit from mobic. Please note she is on fosamax now for bone density. Patient was evaluated by ortho and deemed non surgical for right hip pain at this time. The patient has had over 3 months of moderate to severe low back pain with functional impairment and inadequate response to conservative care including NSAIDS (unless there are contraindication such as concurrent blood thinners), multiple oral or topical pain medications, and home exercise program/physical therapy.?Patient has completed >6 weeks of guided home exercise program and/or formal physical therapy program without relief of their symptoms.?I have reviewed the imaging of the lumbar spine and no red flags were identified.? The imaging reveals radiographic findings consistent with lumbar spondylosis. The Oswestry Disability Index was completed, and the patient scored a 26%.?Patient recently underwent bilateral L3-4 L4-5 facet medial branch block #1 and #2 with >80% improvement in pain and functional ability immediately following and days after the injection. cc:: CC: Lynn Graham NP Review of Systems ROS Status of ROS 10 or more systems reviewed and unremark able except as noted in history and below Musculoskeletal Reports: back pain PFSH PFSH Medical History Osteoarthritis ?M19.90 - Unspecified osteoarthritis, unspecified site (ICD-10) Obesity ?E66.9 - Obesity, unspecified (ICD-10) Goiter ?E04.9 - Nontoxic goiter, unspecified (ICD-10) High cholesterol ?E78.00 - Pure hypercholesterolemia, unspecified (ICD-10) Hypertension ?I10 - Essential (primary) hypertension (ICD-10) Osteoporosis ?M81.0 - Age-related osteoporosis without current pathological fracture (ICD- 10) Lumbar spondylosis ?M47.816 - Spondylosis without myelopathy or radiculopathy, lumbar region (ICD-10) Chronic low back pain ?M54.50 - Low back pain, unspecified (ICD-10) ?G89.29 - Other chronic pain (ICD-10) Surgical History S/P total knee arthroplasty ?Z96.659 - Presence of unspecified artificial knee joint (ICD-10) H/O thumb surgery ?Z98.890 - Other specified postprocedural states (ICD-10) Meds Home Medications and Allergies Home Medications ?Medication ?Instructions ?Recorded ?Confirmed ?Type alendronate 70 mg tablet 70 mg PO QWEEK 07/27/23 10/31/23 History calcium carbonate 600 mg-vitamin 1 tab PO BID 07/27/23 10/31/23 History D3 5 mcg (200 unit) tablet (Calcium 600 + D(3)) docusate sodium 100 mg capsule 100 mg PO .HS PRN constipation 07/27/23 10/31/23 History famotidine 20 mg tablet 20 mg PO .HS 07/27/23 10/31/23 History loratadine 10 mg tablet (Claritin) 10 mg PO DAILY 07/27/23 10/31/23 History meloxicam 15 mg tablet 15 mg PO DAILY 07/27/23 10/31/23 History metoprolol succinate 50 mg capsule 50 mg PO BID 07/27/23 10/31/23 History sprinkle, ext. release 24 hr multivitamin 1 tab PO DAILY 07/27/23 10/31/23 History omeprazole 20 mg capsule,delayed 20 mg PO DAILY 07/27/23 10/31/23 History release pravastatin 20 mg tablet 20 mg PO DAILY 07/27/23 10/31/23 History secukinumab 150 mg/mL subcutaneous 150 mg subcut .[id number] 07/27/23 10/31/23 History pen injector (Cosentyx Pen) sennosides 8.6 mg capsule (senna) 8.6 mg PO .HS PRN constipation 07/27/23 10/31/23 History Allergies Allergy/AdvReac Type Severity Reaction Status Date / Time No Known Drug Allergies Allergy Verified 10/31/23 07:47 Exam Constitutional Documenting provider has reviewed patient's vital signs: yes Common normals: no apparent distress, oriented x3, healthy appearing, alert and well nourished General appearance: cooperative HENMT Common normals: normocephalic, hearing grossly normal bilaterally and moist oral mucous membranes Head and scalp: normocephalic Eye Common normals: PERRL Pupil: PERRL Neck & C-Spine Common normals: full ROM General: normal visual inspection Chest Common normals: inspection of chest normal Respiratory Common normals: normal respiratory effort, no retractions and no use of accessory muscles Back & Pelvis Lumbar spine/lower back: pain with ROM and straight leg raise negative bilaterally Sacroiliac joints: SI joints normal Other: positive facet loading Extremity Common normals: normal to inspection and full ROM Right lower extremity: hip joint Other: pain with internal and external rotation reports popping sensation intermittently Neuro Common normals: oriented x3, CN's II-XII intact bilaterally, moves all extremities, no focal motor deficits, no sensory deficits noted and deep tendon reflexes 2+ bilaterally Sensorium/orientation: alert Motor exam: strength 5/5 throughout and no movement abnormalities noted Psych Common normals: mental status grossly normal, thought process normal, cooperative, affect normal, speech normal and activity/motor behavior normal Speech: normal speech Thought process: normal thought process Results Additional Findings Additional findings: If on a controlled substance or opioids, I have checked an [place] report on this patient and there are no aberrancies noted in the prescribing history.??If on a controlled substance or opioid a drug screen was completed and reviewed within the last year, and if there has not been a drug screen completed we ordered one today to monitor higher risk, state monitored pain medication use. As part of providing excellent, safe, comprehensive care, the following was completed at our patient's visit: 1. A medication reconciliation and review to ensure accurate knowledge of current/active medications, including asking our patients to inform us about any [id number] medications or herbal remedies/nutritional supplements/alternative remedies. 2. A review to specifically ensure our patients have had annual screening for screening for depression, screening for tobacco use, and screening for unhealthy alcohol use. For concerning screenings had a discussion with the patient, provided patient education, and recommended follow-up with primary care provider when appropriate. If patient noted with a risk of falling, they received education on strength, gait, and balance training to prevent future risk of falling. Assessment and Plan Assessment and Plan (1) Lumbar spondylosis: (2) Chronic low back pain: (3) Right hip pain: Plan bilateral L3-4 L4-5 facet medial branch RFA continue HEP/PT as tolerated continue current medications continue NNCP, marijuana use f/u 1 month after procedure
== END 2023-11-09 12:48 | disposition home or self-care (01) ==
LOC: PM 12:48
PROVIDERS: PCP Family Medicine; Visit Provider Nurse Practitioner
DX: M47.816 Spondylosis without myelopathy or radiculopathy, lumbar region (principal); M54.50 Low back pain, unspecified; M25.551 Pain in right hip
CPT/HCPCS: G0463

== ENCOUNTER 2023-12-05 06:53 | Day surgery (SDC) | payer MEDICARE, OTHER, SELFPAY ==
--- OUTSIDE RECORDS SUMMARY | 2023-12-05 06:56 | XMS_ITS | CCD ---
Author Organization [facility] Care Team Providers Care Batter Mixer Name Role Phone CURT ., DR SERNA Attending Unavailable CURT ., DR SERNA Consulting Unavailable CURT ., DR SERNA Primary Care Unavailable CURT ., DR SERNA Admitting Unavailable ZIEBER, DR PAULINO Liu Consulting Unavailable Curt CHUN, Daphne Calles Primary Care Provider [phone] KARLA TYLER Attending Unavailable DAVEY, IRIS L [...] L Attending Unavailable AMIE, FABIÁN Referring Unavailable APLLORE BARBOSA Attending Unavailable DAVEY, IRIS L Attending Unavailable AMIE, FABIÁN Referring Unavailable DAVEY, IRIS L Attending Unavailable AMIE, FABIÁN Referring Unavailable Shannan CHUN, Pamela Zheng Attending Unavailable Shannan CHUN, Pamela Zheng Attending Unavailable Allergies Allergy Classification Reported Allergen(s) Allergy Type Date of Onset Reaction(s) Facility (1 source) Leucine Drug Allergy [facility] Repository (1 source) Misc-Other; Translations: [Mis-Other] Propensity to adverse reactions (disorder) [facility] Medications Current Medications Medication Drug Class(es) [...] bone density and structure, unspecified site; Translations: [[facility] D/O BONE DEN STRUCT UNS SITE] [...] : DR DAPHNE ELIAS . Admission #: [id number] Family : Order #: [id number] CLICK HERE TO VIEW EXAM RADIOLOGY REPORT [...] carcinoma cancer at age 50. LOCATION: [facility] BREAST COMPOSITION: Scattered areas fibroglandular density. FINDINGS: [...] M.D. on 10/13/2022 at 13:51 Normal [facility] XR DEXA BONE DENSITYon 10-13 XR DEXA [...] by: PAULINO MENDOZA Date: 2022-10-13 11:38 Normal [facility] Encounters Encounter Date Encounter Type Care Provider Facility Start: 11-03-2023 End: 11-03-2023 ambulatory IRIS L DAVEY Not Available Start: 10-31-2023 End: 11-01-2023 ambulatory Pamela Campbell MD Facility:[facility] Start: 10-26-2023 End: 10-26-2023 ambulatory IRIS L [...] End: 10-04-2023 ambulatory Pamela Campbell MD Facility:[facility] Start: 09-29-2023 End: 09-29-2023 ambulatory IRIS L [...] Iris L Davey PT Work Phone: [facility] Comment on above: Lumbar spondylosis ( Primary Dx); Right hip pain; Antalgic gait Start: 08-30-2023 Bamboo flowsheet Iris L Davey PT Work Phone: [facility] Start: 08-30-2023 Bamboo flowsheet Iris L Davey PT Work Phone: [facility] Start: 08-30-2023 End: 08-30-2023 ambulatory Iris L Davey PT Work Phone: [facility] Comment on above: Lumbar spondylosis ( Primary Dx); Right hip pain; Antalgic gait Start: 08-25-2023 End: 08-25-2023 ambulatory Iris L Davey PT Work Phone: [facility] Comment on above: Lumbar spondylosis ( Primary Dx); Right hip pain; Antalgic gait Start: 08-23-2023 End: 08-23-2023 ambulatory IRIS L DAVEY Not Available Start: 08-19-2023 Chart abstracting Iris L Davey PT Work Phone: [facility] Start: 08-18-2023 Bamboo flowsheet Iris L Davey PT Work Phone: [facility] Start: 08-18-2023 Bamboo flowsheet Iris L Davey PT Work Phone: [facility] Start: 08-18-2023 End: 08-18-2023 ambulatory Iris L Davey PT Work Phone: [facility] Comment on above: Lumbar spondylosis [...] 07/26/2024 1:20 PM EST Office Visit [facility] [address] [place] [address] Karla Tyler, ADVERTISING SALES CONSULTANT[employer] [address] [place] [address] [facility] Start: 10-13-2023 End: 10-13-2023 ambulatory 10/13/2023 1:00 PM EDT Treatment [facility] [address] [place] [address] Iris Davey, PT [address] [place] [address] [facility] Start: 10-11-2023 End: 10-11-2023 ambulatory 10/11/2023 1:00 PM EDT Treatment [facility] [address] [place] [address] Iris Davey, PT [address] [place] [address] [facility] Start: 10-06-2023 End: 10-06-2023 ambulatory 10/06/2023 1:00 PM EDT Treatment [facility] [address] [place] [address] Iris Davey L, PT [address] [place] [address] [facility] Start: 10-04-2023 End: 10-04-2023 ambulatory 10/04/2023 1:00 PM EDT Treatment [facility] [address] [place] [address] Iris Davey L, PT [address] [place] [address] [facility] Start: 09-29-2023 End: 09-29-2023 ambulatory 09/29/2023 1:00 PM EDT Treatment [facility] [address] [place] [address] DaveyIris L, PT [address] [place] [address] [facility] Start: 09-27-2023 End: 09-27-2023 ambulatory 09/27/2023 2:00 PM EDT Treatment [facility] [address] [place] [address] Iris Davey L, PT [address] [place] [address] [facility] Start: 09-01-2023 End: 09-01-2023 ambulatory [facility] Comment on above: Arrived Start: 08-30-2023 End: 08-30-2023 ambulatory [facility] Comment on above: Arrived Start: 08-25-2023 End: 08-25-2023 ambulatory 08/25/2023 1:00 PM EST Treatment [facility] [address] [place] [address] Jolynn Iris L, PT [address] [place] [address] [facility] Start: 08-23-2023 End: 08-23-2023 ambulatory 08/23/2023 1:00 PM EST Treatment [facility] [address] [place] [address] Iris Davey, PT [address] [place] [address] [facility] Start: 08-18-2023 End: 08-18-2023 ambulatory 08/18/2023 1:00 PM EST Treatment [facility] [address] [place] [address] Iris Davey, PT [address] [place] [address] Arrived [facility] Comment on above: Arrived Start: 1993 Screening for malign ant neoplasm of breast Mammogram [facility] Start: 1953 Screening for malign ant neoplasm of colon [facility] Immunizations Immunization Date Immunization Notes Care Provider Fa lelety 04-22-2022 SARS-CoV-2, Unspecified Daisy Davey PT Work Phone: [facility] Payers Date Payer Category Payer Unknown [id number] 2018 Medicare [id number] 1959 Medicare [id number] 1959 Unknown [id number] 1953 Unknown [id number] 2.16.84 0.1.600397.3.579.2.593 1953 Unknown [id number] 2.16.84 0.1.769250.3.579.2.1259 1953 Unknown [id number] 2.16.84 0.1.991950.3.579.2.1259 1953 Unknown [id number] 2.16.84 0.1.490361.3.579.2.1259 1953 Unknown [id number] 2.16.84 0.1.880137.3.579.2.1259 1953 Unknown [id number] 2.16.84 0.1.394348.3.579.2.1259 1953 Unknown [id number] 2.16.84 0.1.030722.3.579.2.1259 1953 Unknown [id number] 2.16.84 0.1.552060.3.579.2.1259 1953 Unknown [id number] 2.16.84 0.1.203444.3.579.2.1259 1953 Unknown [id number] 2.16.84 0.1.949206.3.579.2.1259 1953 Unknown [id number] 2.16.84 0.1.251670.3.579.2.1259 1953 Unknown [id number] 2.16.84 0.1.204866.3.579.2.1259 1953 Unknown [id number] 2.16.84 0.1.407364.3.579.2.1259 1953 Unknown [id number] 2.16.84 0.1.910534.3.579.2.1259 1953 Unknown [id number] 2.16.84 0.1.752693.3.579.2.1259 1953 Unknown [id number] 2.16.84 0.1.844847.3.579.2.1259 1953 Unknown [id number] 2.16.84 0.1.756341.3.579.2.1259 1953 Unknown [id number] 2.16.84 0.1.975179.3.579.2.1259 1953 Unknown [id number] 2.16.84 0.1.431898.3.579.2.1259 1953 Unknown [id number] 2.16.84 0.1.724413.3.579.2.1259 1953 Unknown [id number] 2.16.84 0.1.598955.3.579.2.1259 1953 Unknown [id number] 2.16.840 .1.191952.3.579.2.1259 1953 Unknown [id number] 2.16. 840.1.510178.3.579.2.196 1953 Unknown [id number] 2.16. 840.1.391883.3.579.2.196 Social History Date Type Detail Facility Start: [...] 0/10. I feel pretty good today. Hasn't [id number] much activity yet this morning. Overall progress: [...] negotiation. Will be seeing pain management on Thursday. Treatment: Therapeutic Exercise: x28' (14' unsupervised) Per [...] ROM and strengthening. documented in this encounter [facility] Evaluation [...] and content) DATE CREATED AUTHOR 10/22/2022 [facility] pital DATE CREATED AUTHOR AUTHOR'S ORGANIZ ATION 11/04/2023 [facility] EPIC DATE CREATED AUTHOR AUTHOR'S ORGANIZ ATION 11/09/2023 [facility] Care Teams (unrecognized sec tion and content) Batter Mixer Relationship Specialty Start Date End Date Daphne Elias MD [address] [place] [address] PCP - General Family Medicine 04/25/23 Batter Mixer Relationship Specialty Start Date End Date Daphne Elias MD [address] [place] [address] PCP - General Family Medicine 04/25/23 Batter Mixer Relationship Specialty Start Date End Date Daphne Elias MD [address] [place] [address] PCP - General Family Medicine 04/25/23 Batter Mixer Relationship Specialty Start Date End Date Daphne Elias MD [address] [place] [address] PCP - General Family Medicine 04/25/23 Batter Mixer Relationship Specialty Start Date End Date Daphne Elias MD [address] [place] [address] PCP - General Family Medicine 04/25/23 Batter Mixer Relationship Specialty Start Date End Date Daphne Elias MD [address] [place] [address] PCP - General Family Medicine 04/25/23 Batter Mixer Relationship Specialty Start Date End Date Daphne Elias MD [address] [place] [address] PCP - General Family Medicine 04/25/23 Batter Mixer Relationship Specialty Start Date End Date Daphne Elias MD [address] [place] [address] PCP - General Family Medicine 04/25/23 Reason for Visit (unrecogniz ed section and content) Specialty Diagnoses / Procedures Referred By Contac t Referred To Contact Physical Therapy Diagnoses Spondylosis without myelopathy or radiculopathy, lumbar region Procedures [place] PHYSICAL THERAPY EVALUATION LOW COMPLEX 20 MINS Fabián Graham, [address] [place] [address] Iris Davey, PT [address] [place] [address] Referral ID Status Reason Start Date Expiration Date V isits Requested Visits Authorized [id number] Authorized 07/27/2023 01/23/2024 30 30 FOR RECORDS [...] BE BASED ON THE PRIMARY CLINICAL RECORDS. [facility]. provides no warranty or guarantee of the accuracy or completeness of information in this document.
[2023-12-05 07:25] VITALS: BP 159/83; PULSE 58; TEMP 36.9; O2SAT 100
[2023-12-05 08:05] VITALS: BP 177/78; BP 177/79; PULSE 54; PULSE 55; O2SAT 95; O2SAT 99
[2023-12-05] MEDS: TRIAMCINOLONE ACETONIDE 40 MG/ML VIAL INJ (08:08)
[2023-12-05] MEDS: BUPIVACAINE HCL 0.25% PF 25 MG/10 ML VIAL INJ (08:08)
[2023-12-05] MEDS: LIDOCAINE HCL 2% 400 MG/20 ML MDV 15 ML INJ (08:15)
--- NOTE | 2023-12-05 08:20 | P.ON_ITS ---
Date of procedure: 12/05/23 Pre-op diagnosis: Lumbar spondylosis Post-op diagnosis: same as pre-op Procedure: Procedure: Bilateral L3-4, L4-5 radiofrequency ablation Medications: Bupivacaine 0.25% 6cc, lidocaine 2% 5cc, kenalog 80mg The patient was seen and examined in the preoperative holding area.? The site was marked.? Written informed consent was obtained and placed on the chart.? The patient was brought to the medical procedure unit and placed in the prone position.? A timeout was completed verifying correct patient, procedure, positioning, and special requirements.? The skin overlying the target points, the designated medial branch, were prepped and draped in the usual sterile fashion.? The target point was achieved with a 20-gauge 15 cm with a 10 mm curved active tip radiofrequency cannula under direct fluoroscopic visualization.? The needle was inserted at level L3 on the right side. Needle tip position was confirmed with lateral fluoroscopic position.? Motor stimulation was carried out at 2 Hz up to 5 volts with the absence of extremity activity.? This was repeated at level L4, 5 on right side.?? Sensory stimulation was carried out.? Concordant pain was realized at the above- mentioned sites.? Then radiofrequency lesioning was carried out times 90 seconds at 80 degrees times 2 lesions at each level.? The radiofrequency probe was removed prior to cannula removal.? The above-mentioned injectate was placed in 1 mL increments.? The needle was removed. The same procedure, with the same steps, was then completed on the left side at the same levels. Insertion sites were covered.? The patient was taken to the postoperative recovery area and monitored for an appropriate length of time before being found suitable for discharge in the company of a responsible adult. Anesthesia: Local Surgeon: Pamela Campbell Pathology: none sent Condition: stable Disposition: no change
== END 2023-12-05 08:25 | disposition home or self-care (01) ==
PROVIDERS: PCP Family Medicine; Visit Provider Anesthesiology
DX: M47.816 Spondylosis without myelopathy or radiculopathy, lumbar region (principal)
CPT/HCPCS: 64635; 64636

== ENCOUNTER 2024-01-04 14:36 | Outpatient (OUT) | payer MEDICARE, OTHER, SELFPAY ==
--- NOTE | 2024-01-04 14:43 | P.CN_ITS ---
Consult Note: HPI Data of Consult Patient: known to practice within the last 3 years Consult date: 07/27/23 Requesting Physician: Lynn Graham NP Primary Care Provider: Julio Elias MD Consult Narrative Reason for consult: low back pain Narrative: Cesia Cardona a pleasant 68 year old female presents for evaluation and management of chronic low back pain without radiculopathy. Patient is utilizing marijuana, finds benefit from mobic. Please note she is on fosamax now for bone density. Patient was evaluated by ortho and deemed non surgical for right hip pain at this time. The patient has had over 3 months of moderate to severe low back pain with functional impairment and inadequate response to conservative care in cluding NSAIDS (unless there are contraindication such as concurrent blood thinners), multiple oral or topical pain medications, and home exercise program/physical therapy.?Patient has completed >6 weeks of guided home exercise program and/or formal physical therapy program without relief of their symptoms.?I have reviewed the imaging of the lumbar spine and no red flags were identified.? The imaging reveals radiographic findings consistent with lumbar spondylosis. The Oswestry Disability Index was completed, and the patient scored a 24%.?Patient recently underwent bilateral L3-4 L4-5 facet medial branch thermal RFA with >70% improvement in pain and functional ability ongoing. Pain today 0/10 increasing to 4/10 stiffness by end of day or with significant activity. cc:: CC: Lynn Graham NP Review of Systems ROS Status of ROS 10 or more systems reviewed and unremark able except as noted in history and below [facility] Medical History Osteoarthritis ?M19.90 - Unspecified osteoarthritis, unspecified site (ICD-10) Obesity ?E66.9 - Obesity, unspecified (ICD-10) Goiter ?E04.9 - Nontoxic goiter, unspecified (ICD-10) High cholesterol ?E78.00 - Pure hypercholesterolemia, unspecified (ICD-10) Hypertension ?I10 - Essential (primary) hypertension (ICD-10) Osteoporosis ?M81.0 - Age-related osteoporosis without current pathological fracture (ICD- 10) Lumbar spondylosis ?M47.816 - Spondylosis without myelopathy or radiculopathy, lumbar region (ICD-10) Chronic low back pain ?M54.50 - Low back pain, unspecified (ICD-10) ?G89.29 - Other chronic pain (ICD-10) Surgical History S/P total knee arthroplasty ?Z96.659 - Presence of unspecified artificial knee joint (ICD-10) H/O thumb surgery ?Z98.890 - Other specified postprocedural states (ICD-10) Meds Home Medications and Allergies Home Medications ?Medication ?Instructions ?Recorded ?Confirmed ?Type alendronate 70 mg tablet 70 mg PO QWEEK 07/27/23 12/05/23 History calcium carbonate 600 mg-vitamin 1 tab PO BID 07/27/23 12/05/23 History D3 5 mcg (200 unit) tablet (Calcium 600 + D(3)) docusate sodium 100 mg capsule 100 mg PO .HS PRN constipation 07/27/23 12/05/23 History famotidine 20 mg tablet 20 mg PO .HS 07/27/23 12/05/23 History loratadine 10 mg tablet (Claritin) 10 mg PO DAILY 07/27/23 12/05/23 History meloxicam 15 mg tablet 15 mg PO DAILY 07/27/23 12/05/23 History metoprolol succinate 50 mg capsule 50 mg PO BID 07/27/23 12/05/23 History sprinkle, ext. release 24 hr multivitamin 1 tab PO DAILY 07/27/23 12/05/23 History omeprazole 20 mg capsule,delayed 20 mg PO DAILY 07/27/23 12/05/23 History release pravastatin 20 mg tablet 20 mg PO DAILY 07/27/23 12/05/23 History secukinumab 150 mg/mL subcutaneous 150 mg subcut .[id number] 07/27/23 12/05/23 History pen injector (Cosentyx Pen) sennosides 8.6 mg capsule (senna) 8.6 mg PO .HS PRN constipation 07/27/23 12/05/23 History Allergies Allergy/AdvReac Type Severity Reaction Status Date / Time No Known Drug Allergies Allergy Verified 12/05/23 07:27 Exam Constitutional Documenting provider has reviewed patient's vital signs: yes Common normals: no apparent distress, oriented x3, healthy appearing, alert and well nourished General appearance: cooperative HENMT Common normals: normocephalic, hearing grossly normal bilaterally and moist oral mucous membranes Head and scalp: normocephalic Eye Common normals: PERRL Pupil: PERRL Neck & C-Spine Common normals: full ROM General: normal visual inspection Chest Common normals: inspection of chest normal Respiratory Common normals: normal respiratory effort, no retractions and no use of accessory muscles Back & Pelvis Lumbar spine/lower back: ROM limited and straight leg raise negative bilaterally Sacroiliac joints: SI joints normal Other: mildly positive facet loading Extremity Common normals: normal to inspection and full ROM Right lower extremity: hip joint Other: pain with internal and external rotation reports popping sensation intermittently Neuro Common normals: oriented x3, CN's II-XII intact bilaterally, moves all extremities, no focal motor deficits, no sensory deficits noted and deep tendon reflexes 2+ bilaterally Sensorium/orientation: alert Motor exam: strength 5/5 throughout and no movement abnormalities noted Psych Common normals: mental status grossly normal, thought process normal, cooperative, affect normal, speech normal and activity/motor behavior normal Speech: normal speech Thought process: normal thought process Results Additional Findings Additional findings: If on a controlled substance or opioids, I have checked an [place]AR[place] report on this patient and there are no aberrancies noted in the prescribing history.??If on a controlled substance or opioid a drug screen was completed and reviewed within the last year, and if there has not been a drug screen completed we ordered one today to monitor higher risk, state monitored pain medication use. As part of providing excellent, safe, comprehensive care, the following was completed at our patient's visit: 1. A medication reconciliation and review to ensure accurate knowledge of current/active medications, including asking our patients to inform us about any [id number] medications or herbal remedies/nutritional supplements/alternative remedies. 2. A review to specifically ensure our patients have had annual screening for screening for depression, screening for tobacco use, and screening for unhealthy alcohol use. For concerning screenings had a discussion with the patient, prov ided patient education, and recommended follow-up with primary care provider when appropriate. If patient noted with a risk of falling, they received education on strength, gait, and balance training to prevent future risk of falling. Assessment and Plan Assessment and Plan (1) Lumbar spondylosis: (2) Chronic low back pain: (3) Right hip pain: Plan bilateral L3-4 L4-5 facet medial branch RFA providing >70% improvement in pain and functional ability ongoing continue HEP/PT as tolerated continue current medications continue NNCP, marijuana use f/u 6 months, sooner if needed
--- OUTSIDE RECORDS SUMMARY | 2024-01-04 14:48 | XMS_ITS | CCD ---
Author Organization [facility] Care Team Providers Care Network Designer Name Role Phone CURT ., DR SERNA Attending Unavailable CURT ., DR SERNA Consulting Unavailable CURT ., DR SERNA Primary Care Unavailable CURT ., DR SERNA Admitting Unavailable ZIEBER, DR PAULINO Liu Consulting Unavailable Curt CHUN, Daphne Calles Primary Care Provider [phone] KARLA PEÑA Attending Unavailable DAVEY, IRIS L Attending Unavailable [...] L Attending Unavailable AMIE, FABIÁN Referring Unavailable LORE BLACK Attending Unavailable DAVEY, IRIS L Attending Unavailable AMIE, FABIÁN Referring Unavailable DAVEY, IRIS L Attending Unavailable AMIE, FABIÁN Referring Unavailable Giedraitis , Pamela Zheng Attending Unavailable Giedraitis , Pamela Zheng Attending Unavailable Giedraitis , Pamela Zheng Attending Unavailable Allergies Allergy Classification Reported Allergen(s) Allergy Type Date of Onset Reaction(s) Facility (1 source) Leucine Drug Allergy [facility] Repository (1 source) Misc-Other; Translations: [Mis-Other] Propensity to adverse reactions (disorder) [facility] Repository Medications Current Medications Medication Drug Class(es) [...] bone density and structure, unspecified site; Translations: [[facility] D/O BONE DEN STRUCT UNS SITE] Onset: [...] or systems; Translations: [FAM HX MALIG NEOPLASM OT ORGN/SYS] Onset: 10-19-2022 Episodic Spondylosis; intervertebral disc disorders; other back problems (12 sources) Lumbar spondylosis; Translations: [Spondylosis without myelopathy or radiculopathy, lumbar region] Onset: 07-28-2023 07-28-2023 Chronic Results Test Name Value Interpretation Reference Range Facil ity MG MAMM SCREEN 3D REGINO CADon 10-13-2022 MG MAMM SCREEN 3D REGINO CAD Patient: LAKESHA [facility] Exam Date: 10/13/2022 : 1955 Gender:F Ordering : DR DAPHNE ELIAS . Admission #: [id number] Family : Order #: [id number] CLICK HERE TO VIEW EXAM RADIOLOGY REPORT [...] carcinoma cancer at age 50. LOCATION: [facility] BREAST COMPOSITION: Scattered areas fibroglandular density. FINDINGS: [...] M.D. on 10/13/2022 at 13:51 Normal [facility] XR DEXA BONE DENSITYon 10-13 XR DEXA [...] by: PAULINO MENDOZA Date: 2022-10-13 11:38 Normal [facility] Encounters Encounter Date Encounter Type Care Provider Facility Start: 12-05-2023 End: 12-06-2023 ambulatory Pamela Campbell MD Facility:[facility] Start: 11-03-2023 End: 11-03-2023 ambulatory IRIS L DAVEY Not Available Start: 10-31-2023 End: 11-01-2023 ambulatory Pamela Campbell MD Facility:[facility] Start: 10-26-2023 End: 10-26-2023 ambulatory IRIS L [...] 10-03-2023 End: 10-04-2023 ambulatory Pamela Campbell MD Facility:[facility] Start: 09-29-2023 End: 09-29-2023 ambulatory IRIS [...] ambulatory Iris L Davey PT Work Phone: [facility] Comment on above: Lumbar spondylosis ( Primary Dx); Right hip pain; Antalgic gait Start: 08-30-2023 Bamboo flowsheet Iris L Davey PT Work Phone: [facility] Start: 08-30-2023 Bamboo flowsheet Iris L Davey PT Work Phone: [facility] Start: 08-30-2023 End: 08-30-2023 ambulatory Iris L Davey PT Work Phone: [facility] Comment on above: Lumbar spondylosis ( Primary Dx); Right hip pain; Antalgic gait Start: 08-25-2023 End: 08-25-2023 ambulatory Iris L Davey PT Work Phone: [facility] Comment on above: Lumbar spondylosis ( Primary Dx); Right hip pain; Antalgic gait Start: 08-23-2023 End: 08-23-2023 ambulatory IRIS L DAVEY Not Available Start: 08-19-2023 Chart abstracting Iris L Davey PT Work Phone: [facility] Start: 08-18-2023 Bamboo flowsheet Iris L Davey PT Work Phone: [facility] Start: 08-18-2023 Bamboo flowsheet Iris L Davey PT Work Phone: [facility] Start: 08-18-2023 End: 08-18-2023 ambulatory Iris L Davey PT Work Phone: [facility] Comment on above: Lumbar spondylosis ( Primary Dx); Right hip pain; Antalgic gait Start: 08-16-2023 End: 08-16-2023 ambulatory IRIS L DAVEY Not Available Start: 08-11-2023 End: 08-11-2023 ambulatory IRIS L DAVEY Not Available Start: 08-09-2023 End: 08-09-2023 ambulatory IRIS L DAVEY Not Available Start: 08-03-2023 End: 08-03-2023 ambulatory IRIS L DAVEY Not Available Start: 07-28-2023 End: 07-28-2023 ambulatory IRIS DAVEY Not Available Start: 07-25-2023 End: 07-25-2023 ambulatory KARLA YOUNGMAMI Not Available Start: 06-13-2023 End: 06-13-2023 ambulatory LORE BLACK Not Available Start: 10-13-2022 End: 10-14-[address] DAPHNE ELIAS . Facility: Plan of Treatment Date Care Activity Detail Author Start: 07-26-2024 End: 07-26-2024 Patient encounter procedure 07/26/2024 1:20 PM EST Office Visit [facility] [address] [place] [address] Nayeli Karla Pereira, POLICY ISSUE CLERK-ELECTRICAL WIRING LINEMAN [address] [place] [address] [facility] Start: 10-13-2023 End: 10-13-2023 ambulatory 10/13/2023 1:00 PM EDT Treatment [facility] [address] [place] [address] Iris Davey L, PT [address] [place] [address] [facility] Start: 10-11-2023 End: 10-11-2023 ambulatory 10/11/2023 1:00 PM EDT Treatment [facility] [address] [place] [address] Iris Davey L, PT [address] [place] [address] [facility] Start: 10-06-2023 End: 10-06-2023 ambulatory 10/06/2023 1:00 PM EDT Treatment [facility] [address] [place] [address] Iris Davey L, PT [address] [place] [address] [facility] Start: 10-04-2023 End: 10-04-2023 ambulatory 10/04/2023 1:00 PM EDT Treatment [facility] [address] [place] [address] Iris Davey L, PT [address] [place] [address] [facility] Start: 09-29-2023 End: 09-29-2023 ambulatory 09/29/2023 1:00 PM EDT Treatment [facility] [address] [place] [address] Davey, Iris L, PT [address] [place] [address] [facility] Start: 09-27-2023 End: 09-27-2023 ambulatory 09/27/2023 2:00 PM EDT Treatment [facility] [address] [place] [address] Davey, Iris L, PT [address] [place] [address] [facility] Start: 09-01-2023 End: 09-01-2023 ambulatory [facility] Comment on above: Arrived Start: 08-30-2023 End: 08-30-2023 ambulatory [facility] Comment on above: Arrived Start: 08-25-2023 End: 08-25-2023 ambulatory 08/25/2023 1:00 PM EST Treatment [facility] [address] [place] [address] Davey, Iris L, PT [address] [place] [address] [facility] Start: 08-23-2023 End: 08-23-2023 ambulatory 08/23/2023 1:00 PM EST Treatment [facility] [address] [place] [address] Jolynn Iris Singleton, PT [address] [place] [address] [facility] Start: 08-18-2023 End: 08-18-2023 ambulatory 08/18/2023 1:00 PM EST Treatment [facility] [address] [place] [address] Iris Davey, PT [address] [place] [address] Arrived [facility] Comment on above: Arrived Start: 1993 Screening for malign ant neoplasm of breast Mammogram [facility] Start: 1955 Screening for malign ant neoplasm of colon [facility] Immunizations Immunization Date Immunization Notes Care Provider Fa lele 04-22-2022 SARS-CoV-2, Unspecified Daisy Davey PT Work Phone: [facility] Payers Date Payer Category Payer Unknown [id number] 2018 Medicare [id number] 1959 Medicare [id number] 1959 Unknown [id number] 1955 Unknown [id number] 2.16.84 0.1.767509.3.579.2.593 1955 Unknown [id number] 2.16.84 0.1.692261.3.579.2.1259 1953 Unknown [id number] 2.16.84 0.1.683482.3.579.2.1259 1953 Unknown [id number] 2.16.84 0.1.447823.3.579.2.1259 1953 Unknown [id number] 2.16.84 0.1.568761.3.579.2.1259 1953 Unknown [id number] 2.16.84 0.1.721173.3.579.2.1259 1953 Unknown [id number] 2.16.84 0.1.324583.3.579.2.1259 1953 Unknown [id number] 2.16.84 0.1.667606.3.579.2.1259 1953 Unknown [id number] 2.16.84 0.1.584570.3.579.2.1259 1953 Unknown [id number] 2.16.84 0.1.724957.3.579.2.1259 1953 Unknown [id number] 2.16.84 0.1.597723.3.579.2.1259 1953 Unknown [id number] 2.16.84 0.1.913696.3.579.2.1259 1953 Unknown [id number] 2.16.84 0.1.959280.3.579.2.1259 1953 Unknown [id number] 2.16.84 0.1.224725.3.579.2.1259 1953 Unknown [id number] 2.16.84 0.1.415853.3.579.2.1259 1953 Unknown [id number] 2.16.84 0.1.909678.3.579.2.1259 1953 Unknown [id number] 2.16.84 0.1.097919.3.579.2.1259 1953 Unknown [id number] 2.16.84 0.1.924735.3.579.2.1259 1953 Unknown [id number] 2.16.84 0.1.635293.3.579.2.1259 1953 Unknown [id number] 2.16.84 0.1.916066.3.579.2.1259 1953 Unknown [id number] 2.16.84 0.1.798766.3.579.2.1259 1953 Unknown [id number] 2.16.840 .1.382900.3.579.2.1259 1953 Unknown [id number] 2.16. 840.1.736249.3.579.2.196 1955 Unknown [id number] 2.16. 840.1.694931.3.579.2.196 1955 Unknown [id number] 2.16. 840.1.960142.3.579.2.196 Social History Date Type Detail Facility Start: [...] Sexual orientation Heterosexual (fin maria del carmen) [facility] History of Present illness Narrative [...] 0/10. I feel pretty good today. Hasn't [id number] much activity yet this morning. Overall progress: Patient reports ~90% overall improvement in hip pain and mobility since SOC. Back pain is what is limiting her functional mobility at this time. Uses [facility] for long distance community negotiation. Will be [...] and content) DATE CREATED AUTHOR 10/22/2022 [facility] pital DATE CREATED AUTHOR AUTHOR'S ORGANIZ ATION 11/04/2023 [facility] EPIC DATE CREATED AUTHOR AUTHOR'S ORGANIZ ATION 12/11/2023 [facility] Care Teams (unrecognized sec tion and content) Network Designer Relationship Specialty Start Date End Date Daphne Elias MD [address] [place] [address] PCP - General Family Medicine 04/25/23 Network Designer Relationship Specialty Start Date End Date Daphne Elias MD [address] [place] [address] PCP - General Family Medicine 04/25/23 Network Designer Relationship Specialty Start Date End Date Daphne Elias MD [address] [place] [address] PCP - General Family Medicine 04/25/23 Network Designer Relationship Specialty Start Date End Date Daphne Elias MD [address] [place] [address] PCP - General Family Medicine 04/25/23 Network Designer Relationship Specialty Start Date End Date Daphne Elias MD [address] [place] [address] PCP - General Family Medicine 04/25/23 Network Designer Relationship Specialty Start Date End Date Daphne Elias MD [address] [place] [address] PCP - General Family Medicine 04/25/23 Network Designer Relationship Specialty Start Date End Date Daphne Elias MD [address] [place] [address] PCP - General Family Medicine 04/25/23 Network Designer Relationship Specialty Start Date End Date Daphne Elias MD [address] [place] [address] PCP - General Family Medicine 04/25/23 Reason for Visit (unrecogniz ed section and content) Specialty Diagnoses / Procedures Referred By Contac t Referred To Contact Physical Therapy Diagnoses Spondylosis without myelopathy or radiculopathy, lumbar region Procedures [place] PHYSICAL THERAPY EVALUATION LOW COMPLEX 20 MINS Fabián Graham, PAPER COATING SUPERVISOR [address] [place] [address] Iris Davey, PT [address] [place] [address] Referral ID Status Reason Start Date Expiration Date V isits Requested Visits Authorized [id number] Authorized 07/27/2023 01/23/2024 30 30 FOR RECORDS [...] BE BASED ON THE PRIMARY CLINICAL RECORDS. [facility] [employer] [facility]. provides no warranty or guarantee of the accuracy or completeness of information in this document.
== END 2024-01-04 14:37 | disposition home or self-care (01) ==
LOC: PM 14:36
PROVIDERS: PCP Family Medicine; Visit Provider Nurse Practitioner
DX: M47.816 Spondylosis without myelopathy or radiculopathy, lumbar region (principal); M54.50 Low back pain, unspecified; M25.551 Pain in right hip
CPT/HCPCS: G0463

== ENCOUNTER 2024-07-04 13:50 | Outpatient (OUT) | payer MEDICARE, OTHER, SELFPAY ==
--- OUTSIDE RECORDS SUMMARY | 2024-07-04 14:01 | XMS_ITS | CCD ---
Author Organization [facility] Care Team Providers Care Vehicle Return Associate Name Role Phone CURT ., DR SERNA Attending Unavailable CURT ., DR SERNA Consulting Unavailable CURT ., DR SERNA Primary Care Unavailable CURT ., DR SERNA Admitting Unavailable ZIEBER, DR PAULINO Liu Consulting Unavailable Curt CHUN, Daphne Calles Primary Care Provider [phone] KARLA PEÑA Attending Unavailable DAVEY, IRIS L [...] Facility (1 source) Leucine Drug Allergy [facility] Repository (1 source) Misc-Other; Translations: [Mis-Other] Propensity to adverse reactions (disorder) [facility] Repository Medications Current Medications Medication [...] bone density and structure, unspecified site; Translations: [[facility] D/O BONE DEN STRUCT UNS SITE] Onset: [...] MAMM SCREEN 3D REGINO CAD Patient: LAKESHA PUGH Exam Date: 10/13/2022 : 1955 Gender:F Ordering : DR DAPHNE ELIAS . Admission #: [id number] Family : Order #: [id number] CLICK HERE TO VIEW EXAM RADIOLOGY REPORT [...] carcinoma cancer at age 50. LOCATION: [facility] BREAST COMPOSITION: Scattered areas fibroglandular [...] M.D. on 10/13/2022 at 13:51 Normal [facility] XR DEXA BONE DENSITYon 10-13 [...] by: PAULINO MENDOZA Date: 2022-10-13 11:38 Normal [facility] Encounters Encounter Date Encounter Type Care Provider Facility Start: 12-05-2023 End: 12-06-2023 ambulatory Pamela Campbell MD Facility:[facility] Start: 11-03-2023 End: 11-03-2023 ambulatory IRIS L DAVEY Not Available Start: 10-31-2023 End: 11-01-2023 ambulatory Pamela Campbell MD Facility:[facility] Start: 10-26-2023 End: 10-26-2023 ambulatory IRIS L [...] 10-03-2023 End: 10-04-2023 ambulatory Pamela Campbell MD Facility:[facility] Start: 09-29-2023 End: 09-29-2023 ambulatory IRIS L [...] ambulatory Iris L Davey PT Work Phone: [facility] PT Comment on above: Lumbar spondylosis ( Primary Dx); Right hip pain; Antalgic gait Start: 08-30-2023 Bamboo flowsheet Iris L Davey PT Work Phone: [facility] PT Start: 08-30-2023 Bamboo flowsheet Iris L Davey PT Work Phone: [facility] PT Start: 08-30-2023 End: 08-30-2023 ambulatory Iris L Davey PT Work Phone: [facility] PT Comment on above: Lumbar spondylosis ( Primary Dx); Right hip pain; Antalgic gait Start: 08-25-2023 End: 08-25-2023 ambulatory Iris L Davey PT Work Phone: [facility] PT Comment on above: Lumbar spondylosis ( Primary Dx); Right hip pain; Antalgic gait Start: 08-23-2023 End: 08-23-2023 ambulatory IRIS L DAVEY Not Available Start: 08-19-2023 Chart abstracting Iris L Davey PT Work Phone: [facility] PT Start: 08-18-2023 Bamboo flowsheet Iris L Davey PT Work Phone: [facility] PT Start: 08-18-2023 Bamboo flowsheet Iris L Davey PT Work Phone: [facility] PT Start: 08-18-2023 End: 08-18-2023 ambulatory Iris L Davey PT Work Phone: [facility] PT Comment on above: Lumbar [...] 07/26/2024 1:20 PM EST Office Visit [facility] [address] [place] [address] Nayeli Karla Pereira, HEAD PIECE ASSEMBLER-TRACK LABORER [address] [place] [address] [facility] Start: 10-13-2023 End: 10-13-2023 ambulatory 10/13/2023 1:00 PM EDT Treatment [facility] [address] [place] [address] Iris Davey L, PT [address] [place] [address] [facility] Start: 10-11-2023 End: 10-11-2023 ambulatory 10/11/2023 1:00 PM EDT Treatment [facility] [address] [place] [address] Iris Davey L, PT [address] [place] [address] [facility] Start: 10-06-2023 End: 10-06-2023 ambulatory 10/06/2023 1:00 PM EDT Treatment [facility] [address] [place] [address] Iris Davey L, PT [address] [place] [address] [facility] Start: 10-04-2023 End: 10-04-2023 ambulatory 10/04/2023 1:00 PM EDT Treatment [facility] [address] [place] [address] Iris Davey L, PT [address] [place] [address] [facility] Start: 09-29-2023 End: 09-29-2023 ambulatory 09/29/2023 1:00 PM EDT Treatment [facility] [address] [place] [address] Davey, Iris L, PT [address] [place] [address] [facility] Start: 09-27-2023 End: 09-27-2023 ambulatory 09/27/2023 2:00 PM EDT Treatment [facility] [address] [place] [address] Davey, Iris L, PT [address] [place] [address] [facility] Start: 09-01-2023 End: 09-01-2023 ambulatory [facility] Comment on above: Arrived Start: 08-30-2023 End: 08-30-2023 ambulatory [facility] Comment on above: Arrived Start: 08-25-2023 End: 08-25-2023 ambulatory 08/25/2023 1:00 PM EST Treatment [facility] [address] [place] [address] Davey, Iris L, PT [address] [place] [address] [facility] Start: 08-23-2023 End: 08-23-2023 ambulatory 08/23/2023 1:00 PM EST Treatment [facility] [address] [place] [address] Jolynn Iris Singleton, PT [address] [place] [address] [facility] Start: 08-18-2023 End: 08-18-2023 [...] Healthcare Payers Date Payer Category Payer Unknown [id number] 2018 Medicare [id number] 1959 Medicare [id number] 1961 Unknown [id number] 1955 Unknown [id number] 2.16.84 0.1.877472.3.579.2.593 1955 Unknown [id number] 2.16.84 0.1.913004.3.579.2.1259 1955 Unknown [id number] 2.16.84 0.1.590296.3.579.2.1259 1955 Unknown [id number] 2.16.84 0.1.790059.3.579.2.1259 1953 Unknown [id number] 2.16.84 0.1.484384.3.579.2.1259 1953 Unknown [id number] 2.16.84 0.1.950649.3.579.2.1259 1953 Unknown [id number] 2.16.84 0.1.074768.3.579.2.1259 1953 Unknown [id number] 2.16.84 0.1.010532.3.579.2.1259 1953 Unknown [id number] 2.16.84 0.1.964319.3.579.2.1259 1953 Unknown [id number] 2.16.84 0.1.807359.3.579.2.1259 1953 Unknown [id number] 2.16.84 0.1.103257.3.579.2.1259 1953 Unknown [id number] 2.16.84 0.1.121516.3.579.2.1259 1953 Unknown [id number] 2.16.84 0.1.217249.3.579.2.1259 1953 Unknown [id number] 2.16.84 0.1.930700.3.579.2.1259 1953 Unknown [id number] 2.16.84 0.1.283588.3.579.2.1259 1953 Unknown [id number] 2.16.84 0.1.709781.3.579.2.1259 1953 Unknown [id number] 2.16.84 0.1.641693.3.579.2.1259 1953 Unknown [id number] 2.16.84 0.1.655125.3.579.2.1259 1953 Unknown [id number] 2.16.84 0.1.471294.3.579.2.1259 1953 Unknown [id number] 2.16.84 0.1.219523.3.579.2.1259 1953 Unknown [id number] 2.16.84 0.1.562266.3.579.2.1259 1953 Unknown [id number] 2.16.840 .1.593331.3.579.2.1259 1953 Unknown [id number] 2.16. 840.1.250726.3.579.2.196 1955 Unknown [id number] 2.16. 840.1.263700.3.579.2.196 1955 Unknown [id number] 2.16. 840.1.881152.3.579.2.196 Social History Date Type Detail Facility Start: [...] 0/10. I feel pretty good today. Hasn't [id number] much activity yet this morning. Overall progress: Patient reports ~90% overall improvement in hip pain and mobility since SOC. Back pain is what is limiting her functional mobility at this time. Uses [facility] for long distance community negotiation. Will be [...] and content) DATE CREATED AUTHOR 10/22/2022 [facility] pital DATE CREATED AUTHOR AUTHOR'S ORGANIZ ATION 11/04/2023 [facility] EPIC DATE CREATED AUTHOR AUTHOR'S ORGANIZ ATION 12/11/2023 [facility] Care Teams (unrecognized sec tion and content) Vehicle Return Associate Relationship Specialty Start Date End Date Daphne Elias MD [address] [place] [address] PCP - General Family Medicine 04/25/23 Vehicle Return Associate Relationship Specialty Start Date End Date Daphne Elias MD [address] [place] [address] PCP - General Family Medicine 04/25/23 Vehicle Return Associate Relationship Specialty Start Date End Date Daphne Elias MD [address] [place] [address] PCP - General Family Medicine 04/25/23 Vehicle Return Associate Relationship Specialty Start Date End Date Daphne Elias MD [address] [place] [address] PCP - General Family Medicine 04/25/23 Vehicle Return Associate Relationship Specialty Start Date End Date Daphne Elias MD [address] [place] [address] PCP - General Family Medicine 04/25/23 Vehicle Return Associate Relationship Specialty Start Date End Date Daphne Elias MD [address] [place] [address] PCP - General Family Medicine 04/25/23 Vehicle Return Associate Relationship Specialty Start Date End Date Daphne Elias MD [address] [place] [address] PCP - General Family Medicine 04/25/23 Vehicle Return Associate Relationship Specialty Start Date End Date Daphne Elias MD [address] [place] [address] PCP - General Family Medicine 04/25/23 Reason for Visit (unrecogniz ed section and content) Specialty Diagnoses / Procedures Referred By Contac t Referred To Contact Physical Therapy Diagnoses Spondylosis without myelopathy or radiculopathy, lumbar region Procedures [facility] EVALUATION LOW COMPLEX 20 MINS Fabián Graham, CASSANDRA DEVELOPER [address] [place] [address] Iris Davey, PT [address] [place] [address] Referral ID Status Reason Start Date Expiration Date V isits Requested Visits Authorized [id number] Authorized 07/27/2023 01/23/2024 30 30 FOR RECORDS [...] BE BASED ON THE PRIMARY CLINICAL RECORDS. [facility] [employer] [facility]. provides no warranty or guarantee of the accuracy or completeness of information in this document.
--- NOTE | 2024-07-04 14:08 | P.CN_ITS ---
Consult Note: HPI Data of Consult Patient: known to practice within the last 3 years Consult date: 07/27/23 Requesting Physician: Lynn Graham NP Primary Care Provider: Julio Elias MD Consult Narrative Reason for consult: low back pain Narrative: Cesia Cardona a pleasant 68 year old female presents for evaluation and management of chronic low back pain without radiculopathy. Patient is utilizing marijuana, finds benefit from mobic. Please note she is on fosamax now for bone density. Patient was evaluated by ortho and deemed non surgical for right hip pain at this time. The patient has had over 3 months of moderate to severe low back pain with functional impairment and inadequate response to conservative care in cluding NSAIDS (unless there are contraindication such as concurrent blood thinners), multiple oral or topical pain medications, and home exercise program/physical therapy.?Patient has completed >6 weeks of guided home exercise program and/or formal physical therapy program without relief of their symptoms.?I have reviewed the imaging of the lumbar spine and no red flags were identified.? The imaging reveals radiographic findings consistent with lumbar spondylosis. Pt noticing increase in low back pain and BLE heaviness with standing and walking, improved with sitting and forward flexion. cc:: CC: Lynn Graham NP Review of Systems ROS Status of ROS 10 or more systems reviewed and unremark able except as noted in history and below Musculoskeletal Reports: back pain PFSH PFSH Medical History Osteoarthritis ?M19.90 - Unspecified osteoarthritis, unspecified site (ICD-10) Obesity ?E66.9 - Obesity, unspecified (ICD-10) Goiter ?E04.9 - Nontoxic goiter, unspecified (ICD-10) High cholesterol ?E78.00 - Pure hypercholesterolemia, unspecified (ICD-10) Hypertension ?I10 - Essential (primary) hypertension (ICD-10) Osteoporosis ?M81.0 - Age-related osteoporosis without current pathological fracture (ICD- 10) Lumbar spondylosis ?M47.816 - Spondylosis without myelopathy or radiculopathy, lumbar region (ICD-10) Chronic low back pain ?M54.50 - Low back pain, unspecified (ICD-10) ?G89.29 - Other chronic pain (ICD-10) Surgical History S/P total knee arthroplasty ?Z96.659 - Presence of unspecified artificial knee joint (ICD-10) H/O thumb surgery ?Z98.890 - Other specified postprocedural states (ICD-10) Meds Home Medications and Allergies Home Medications ?Medication ?Instructions ?Recorded ?Confirmed ?Type alendronate 70 mg tablet 70 mg PO QWEEK 07/27/23 12/05/23 History calcium 600 mg (as 1 tab PO BID 07/27/23 12/05/23 History carbonate)-vitamin D3 5 mcg (200 unit) tablet (Calcium 600 + D(3)) docusate sodium 100 mg capsule 100 mg PO .HS PRN constipation 07/27/23 12/05/23 History famotidine 20 mg tablet 20 mg PO .HS 07/27/23 12/05/23 History loratadine 10 mg tablet (Claritin) 10 mg PO DAILY 07/27/23 12/05/23 History meloxicam 15 mg tablet 15 mg PO DAILY 07/27/23 12/05/23 History metoprolol succinate 50 mg capsule 50 mg PO BID 07/27/23 12/05/23 History sprinkle, ext. release 24 hr multivitamin 1 tab PO DAILY 07/27/23 12/05/23 History omeprazole 20 mg capsule,delayed 20 mg PO DAILY 07/27/23 12/05/23 History release pravastatin 20 mg tablet 20 mg PO DAILY 07/27/23 12/05/23 History secukinumab 150 mg/mL subcutaneous 150 mg subcut .[id number] 07/27/23 12/05/23 History pen injector (Cosentyx Pen) sennosides 8.6 mg capsule (senna) 8.6 mg PO .HS PRN constipation 07/27/23 12/05/23 History Allergies Allergy/AdvReac Type Severity Reaction Status Date / Time No Known Drug Allergies Allergy Verified 12/05/23 07:27 Exam Constitutional Documenting provider has reviewed patient's vital signs: yes Common normals: no apparent distress, oriented x3, healthy appearing, alert and well nourished General appearance: cooperative HENHI Common normals: normocephalic, hearing grossly normal bilaterally and moist oral mucous membranes Head and scalp: normocephalic Eye Common normals: PERRL Pupil: PERRL Neck & C-Spine Common normals: full ROM General: normal visual inspection Chest Common normals: inspection of chest normal Respiratory Common normals: normal respiratory effort, no retractions and no use of accessory muscles Back & Pelvis Lumbar spine/lower back: ROM limited and straight leg raise negative bilaterally Sacroiliac joints: SI joints normal Other: mildly positive facet loading pain increased with standing and walking, improved with sitting sensation intact BLE strength 5/5 in BLE Extremity Common normals: normal to inspection and full ROM Right lower extremity: hip joint Other: pain with internal and external rotation reports popping sensation intermittently Neuro Common normals: oriented x3, CN's II-XII intact bilaterally, moves all extremities, no focal motor deficits, no sensory deficits noted and deep tendon reflexes 2+ bilaterally Sensorium/orientation: alert Motor exam: strength 5/5 throughout and no movement abnormalities noted Psych Common normals: mental status grossly normal, thought process normal, cooperative, affect normal, speech normal and activity/motor behavior normal Speech: normal speech Thought process: normal thought process Results Additional Findings Additional findings: If on a controlled substance or opioids, I have checked an [place] report on this patient and there are no aberrancies noted in the prescribing history.??If on a controlled substance or opioid a drug screen was completed and reviewed within the last year, and if there has not been a drug screen completed we ordered one today to monitor higher risk, state monitored pain medication use. As part of providing excellent, safe, comprehensive care, the following was completed at our patient's visit: 1. A medication reconciliation and review to ensure accurate knowledge of current/active medications, including asking our patients to inform us about any [id number]-[id number] medications or herbal remedies/nutritional supplements/alternative remedies. 2. A review to specifically ensure our patients have had annual screening for screening for depression, screening for tobacco use, and screening for unhealthy alcohol use. For concerning screenings had a discussion with the patient, provided patient education, and recommended follow-up with primary care provider when appropriate. If patient noted with a risk of falling, they received education on strength, gait, and balance training to prevent future risk of falling. Assessment and Plan Assessment and Plan (1) Lumbar spondylosis: (2) Chronic low back pain: (3) Right hip pain: (4) Lumbar stenosis with neurogenic claudication: Plan update lumbar MRI without contrast to assess lumbar stenosis with NC start baclofen 10mg TID PRN pain/spasms continue HEP/PT as tolerated continue NNCP, marijuana use f/u to review MRI and discuss DAVID
== END 2024-07-04 13:51 | disposition home or self-care (01) ==
LOC: PM 13:50
PROVIDERS: PCP Family Medicine; Visit Provider Nurse Practitioner
DX: M47.816 Spondylosis without myelopathy or radiculopathy, lumbar region (principal); M54.50 Low back pain, unspecified; M25.551 Pain in right hip; M48.062 Spinal stenosis, lumbar region with neurogenic claudication
CPT/HCPCS: G0463

== ENCOUNTER 2024-07-20 12:34 | Outpatient (OUT) | payer MEDICARE, OTHER, SELFPAY ==
--- OUTSIDE RECORDS SUMMARY | 2024-07-20 12:39 | XMS_ITS | CCD ---
Author Organization [facility] Care Team Providers Care Hand Mold Maker Name Role Phone CURT ., DR SERNA Attending Unavailable CURT ., DR SERNA Consulting Unavailable CURT ., DR SERNA Primary Care Unavailable CURT ., DR SERNA Admitting Unavailable ZIEBER, DR PAULINO Liu Consulting Unavailable Curt CHUN, Daphne Calles Primary Care Provider [phone] KARLA PEÑA Attending Unavailable DAVEY, IRIS L [...] Attending Unavailable AMIE, FABIÁN Referring Unavailable DAVEY, IIRS L Attending Unavailable AMIE, FABIÁN Referring Unavailable [...] Facility (1 source) Leucine Drug Allergy [facility] Repository (1 source) Misc-Other; Translations: [Mis-Other] Propensity to adverse reactions (disorder) [facility] Medications Current Medications Medication Drug [...] bone density and structure, unspecified site; Translations: [[facility] D/O BONE DEN STRUCT [...] : DR DAPHNE ELIAS . Admission #: [id number] Family : Order #: [id number] CLICK HERE TO VIEW EXAM RADIOLOGY REPORT [...] carcinoma cancer at age 50. LOCATION: [facility] BREAST COMPOSITION: Scattered areas fibroglandular density. [...] M.D. on 10/13/2022 at 13:51 Normal [facility] XR DEXA BONE DENSITYon 10-13 XR [...] by: PAULINO MENDOZA Date: 2022-10-13 11:38 Normal [facility] Encounters Encounter Date Encounter Type Care Provider Facility Start: 12-05-2023 End: 12-06-2023 ambulatory Pamela Campbell MD Facility:[facility] Start: 11-03-2023 End: 11-03-2023 ambulatory IRIS L DAVEY Not Available Start: 10-31-2023 End: 11-01-2023 ambulatory Pamela Campbell MD Facility:[facility] Start: 10-26-2023 End: 10-26-2023 ambulatory IRIS [...] 10-03-2023 End: 10-04-2023 ambulatory Pamela Campbell MD Facility:[facility] Start: 09-29-2023 End: 09-29-2023 ambulatory IRIS [...] ambulatory Iris L Davey PT Work Phone: [facility] Comment on above: Lumbar spondylosis ( Primary Dx); Right hip pain; Antalgic gait Start: 08-30-2023 Bamboo flowsheet Iris L Davey PT Work Phone: [facility] Start: 08-30-2023 Bamboo flowsheet Iris L Davey PT Work Phone: [facility] Start: 08-30-2023 End: 08-30-2023 ambulatory Iris L Davey PT Work Phone: [facility] Comment on above: Lumbar spondylosis ( Primary Dx); Right hip pain; Antalgic gait Start: 08-25-2023 End: 08-25-2023 ambulatory Iris L Davey PT Work Phone: [facility] Comment on above: Lumbar spondylosis ( Primary Dx); Right hip pain; Antalgic gait Start: 08-23-2023 End: 08-23-2023 ambulatory IRIS L DAVEY Not Available Start: 08-19-2023 Chart abstracting Iris L Davey PT Work Phone: [facility] Start: 08-18-2023 Bamboo flowsheet Iris L Davey PT Work Phone: [facility] Start: 08-18-2023 Bamboo flowsheet Iris L Davey PT Work Phone: [facility] Start: 08-18-2023 End: 08-18-2023 ambulatory Iris L Davey PT Work Phone: [facility] Comment on above: Lumbar [...] 07/26/2024 1:20 PM EST Office Visit [facility] [address] [place] [address] Nayeli Karla Pereira, FRONT COUNTER CLERK-HOT SHOT [address] [place] [address] [facility] Start: 10-13-2023 End: 10-13-2023 ambulatory 10/13/2023 1:00 PM EDT Treatment [facility] [address] [place] [address] Iris Davey L, PT [address] [place] [address] [facility] Start: 10-11-2023 End: 10-11-2023 ambulatory 10/11/2023 1:00 PM EDT Treatment [facility] [address] [place] [address] Iris Davey L, PT [address] [place] [address] [facility] Start: 10-06-2023 End: 10-06-2023 ambulatory 10/06/2023 1:00 PM EDT Treatment [facility] [address] [place] [address] Iris Davey L, PT [address] [place] [address] [facility] Start: 10-04-2023 End: 10-04-2023 ambulatory 10/04/2023 1:00 PM EDT Treatment [facility] [address] [place] [address] Iris Davey L, PT [address] [place] [address] [facility] Start: 09-29-2023 End: 09-29-2023 ambulatory 09/29/2023 1:00 PM EDT Treatment [facility] [address] [place] [address] Davey, Iris L, PT [address] [place] [address] [facility] Start: 09-27-2023 End: 09-27-2023 ambulatory 09/27/2023 2:00 PM EDT Treatment [facility] [address] [place] [address] Davey, Iris L, PT [address] [place] [address] [facility] Start: 09-01-2023 End: 09-01-2023 ambulatory [facility] Comment on above: Arrived Start: 08-30-2023 End: 08-30-2023 ambulatory [facility] Comment on above: Arrived Start: 08-25-2023 End: 08-25-2023 ambulatory 08/25/2023 1:00 PM EST Treatment [facility] [address] [place] [address] Davey, Iris L, PT [address] [place] [address] [facility] Start: 08-23-2023 End: 08-23-2023 ambulatory 08/23/2023 1:00 PM EST Treatment [facility] [address] [place] [address] Jolynn Iris Singleton, PT [address] [place] [address] [facility] Start: 08-18-2023 End: 08-18-2023 ambulatory 08/18/2023 1:00 PM EST Treatment [facility] [address] [place] [address] Iris aDvey, PT [address] [...] Healthcare Payers Date Payer Category Payer Unknown [id number] 2018 Medicare [id number] 1959 Medicare [id number] 1959 Unknown [id number] 1953 Unknown [id number] 2.16.84 0.1.533291.3.579.2.593 1953 Unknown [id number] 2.16.84 0.1.094934.3.579.2.1259 1953 Unknown [id number] 2.16.84 0.1.369550.3.579.2.1259 1953 Unknown [id number] 2.16.84 0.1.038407.3.579.2.1259 1953 Unknown [id number] 2.16.84 0.1.636879.3.579.2.1259 1953 Unknown [id number] 2.16.84 0.1.203303.3.579.2.1259 1953 Unknown [id number] 2.16.84 0.1.097929.3.579.2.1259 1953 Unknown [id number] 2.16.84 0.1.466550.3.579.2.1259 1953 Unknown [id number] 2.16.84 0.1.015869.3.579.2.1259 1953 Unknown [id number] 2.16.84 0.1.874815.3.579.2.1259 1953 Unknown [id number] 2.16.84 0.1.119245.3.579.2.1259 1953 Unknown [id number] 2.16.84 0.1.678998.3.579.2.1259 1953 Unknown [id number] 2.16.84 0.1.721182.3.579.2.1259 1953 Unknown [id number] 2.16.84 0.1.846619.3.579.2.1259 1953 Unknown [id number] 2.16.84 0.1.800750.3.579.2.1259 1953 Unknown [id number] 2.16.84 0.1.381420.3.579.2.1259 1953 Unknown [id number] 2.16.84 0.1.971440.3.579.2.1259 1953 Unknown [id number] 2.16.84 0.1.881380.3.579.2.1259 1953 Unknown [id number] 2.16.84 0.1.543296.3.579.2.1259 1953 Unknown [id number] 2.16.84 0.1.400435.3.579.2.1259 1953 Unknown [id number] 2.16.84 0.1.317934.3.579.2.1259 1953 Unknown [id number] 2.16.840 .1.218715.3.579.2.1259 1953 Unknown [id number] 2.16. 840.1.350483.3.579.2.196 1953 Unknown [id number] 2.16. 840.1.284248.3.579.2.196 1953 Unknown [id number] 2.16. 840.1.743212.3.579.2.196 Social History Date Type Detail Facility Start: [...] 0/10. I feel pretty good today. Hasn't [id number] much activity yet this morning. Overall progress: Patient reports ~90% overall improvement in hip pain and mobility since SOC. Back pain is what is limiting her functional mobility at this time. Uses [facility] for long distance community [...] and content) DATE CREATED AUTHOR 10/22/2022 [facility] pital DATE CREATED AUTHOR AUTHOR'S ORGANIZ ATION 11/04/2023 [facility] EPIC DATE CREATED AUTHOR AUTHOR'S ORGANIZ ATION 12/11/2023 [facility] Care Teams (unrecognized sec tion and content) Hand Mold Maker Relationship Specialty Start Date End Date Daphne Elias MD [address] [place] [address] PCP - General Family Medicine 04/25/23 Hand Mold Maker Relationship Specialty Start Date End Date Daphne Elias MD [address] [place] [address] PCP - General Family Medicine 04/25/23 Hand Mold Maker Relationship Specialty Start Date End Date Daphne Elias MD [address] [place] [address] PCP - General Family Medicine 04/25/23 Hand Mold Maker Relationship Specialty Start Date End Date Daphne Elias MD [address] [place] [address] PCP - General Family Medicine 04/25/23 Hand Mold Maker Relationship Specialty Start Date End Date Daphne Elias MD [address] [place] [address] PCP - General Family Medicine 04/25/23 Hand Mold Maker Relationship Specialty Start Date End Date Daphne Elias MD [address] [place] [address] PCP - General Family Medicine 04/25/23 Hand Mold Maker Relationship Specialty Start Date End Date Daphne Elias MD [address] [place] [address] PCP - General Family Medicine 04/25/23 Hand Mold Maker Relationship Specialty Start Date End Date Daphne Elias MD [address] [place] [address] PCP - General Family Medicine 04/25/23 Reason for Visit (unrecogniz ed section and content) Specialty Diagnoses / Procedures Referred By Contac t Referred To Contact Physical Therapy Diagnoses Spondylosis without myelopathy or radiculopathy, lumbar region Procedures CA PHYSICAL THERAPY EVALUATION LOW COMPLEX 20 MINS Fabián Graham, RN [address] [place] [address] Iris Davey, PT [address] [place] [address] Referral ID Status Reason Start Date Expiration Date V isits Requested Visits Authorized [id number] Authorized 07/27/2023 01/23/2024 30 30 FOR RECORDS [...] ON THE PRIMARY CLINICAL RECORDS. [employer] [employer] [facility]. provides no warranty or guarantee of the accuracy or completeness of information in this document.
--- NOTE | 2024-07-20 12:43 | MR_ITS ---
[address] [address] Patient Name: VENESSA PUGH MRN: [facility]:[id number] date: 1955 Sex: F Assigned Patient Location: MRI Current Patient Location: MRI Accession/Order Number: [id number] Exam Date: 07/20/2024 12:55 Report Date: 07/20/2024 14:47 At the request of: FABIÁN HOLLOWAY Procedure: MR lumbar spine wo con EXAMINATION: MR lumbar spine wo con HISTORY: spinal stenosis of lumbar region M48.067 COMPARISON: No relevant comparison available. TECHNIQUE: A variety of imaging planes and parameters were utilized for visualization of suspected pathology. FINDINGS: For the purposes of numbering, sagittal T2 image # 7 extends from the region vertebral body superiorly to the S3 level inferiorly. PARASPINAL AREA: Normal with no visible mass. BONES: Normal alignment with no acute fracture or spondylolisthesis. Moderate to severe spondylosis and facet osteoarthropathy CORD/CAUDA EQUINA: Normal caliber, contour, and signal intensity. DISC LEVELS: 12-L1: No significant disc/facet abnormality, spinal stenosis, or foraminal stenosis. L1-L2: No significant disc/facet abnormality, spinal stenosis, or foraminal stenosis. L2-L3: Moderate to severe disc space narrowing and disc desiccation with endplate sclerosis. broad-based posterior disc herniation of the protrusion type extending posteriorly up to 4.4 mm. Ligamentum flavum hypertrophy and facet osteoarthropathy. Moderate trefoil narrowing of the central canal. Moderate bilateral foraminal stenosis L3-L4: Moderate to severe disc space narrowing with disc desiccation and endplate sclerosis. Posterior broad-based disc herniation of the protrusion type extending posteriorly up to 6.5 mm. Ligamentum flavum hypertrophy and facet osteoarthropathy. Moderate to severe central canal stenosis. Right and moderate left foraminal stenosis L4-L5: Disc collapse with endplate sclerosis. Moderate diffuse disc/osteophyte complex and facet osteoarthropathy. Ligamentum flavum hypertrophy. Severe central canal and bilateral foraminal stenosis L5-S1: Moderate disc space Disc desiccation. Mild diffuse disc/osteophyte complex. No definite central or foraminal stenosis MR/MR lumbar spine wo con IMPRESSION: Moderate to severe degenerative changes with central and foraminal stenosis L2-L3 through L4-L5. Electronically authenticated by: KELLY PARKINSON Date: 07/20/2024 14:47
== END 2024-07-20 12:35 | disposition home or self-care (01) ==
LOC: MRI 12:34
PROVIDERS: PCP Family Medicine; Visit Provider Nurse Practitioner
DX: M48.062 Spinal stenosis, lumbar region with neurogenic claudication (principal); M51.369 Other intervertebral disc degeneration, lumbar region without mention of lumbar back pain or lower extremity pain
CPT/HCPCS: 72148

== ENCOUNTER 2024-07-30 10:48 | Outpatient (OUT) | payer MEDICARE, OTHER, SELFPAY ==
--- NOTE | 2024-07-30 11:22 | PM.CN ---
Consult Note: HPI Data of Consult Patient: known to practice within the last 3 years Consult date: 07/30/24 Requesting Physician: Pamela Campbell MD Primary Care Provider: Julio Elias MD Consult Narrative Reason for consult: low back pain, bilateral LE pain Narrative: 69yof who presents for assessment. Notes worsening pain throughout low back and bilateral LE. Imaging reviewed, which is significant for moderate to severe stenosis from L2 to L4. Continues in a series of provider directed home exercises >6 weeks, without lasting benefit. uses baclofen as needed. denies adverse med side effects. cc:: CC: Pamela Campbell MD Review of Systems ROS Status of ROS 10 or more systems reviewed and unremarkable except as noted in history and below PFSH [facility] Medical History Osteoarthritis ?M19.90 - Unspecified osteoarthritis, unspecified site (ICD-10) Obesity ?E66.9 - Obesity, unspecified (ICD-10) Goiter ?E04.9 - Nontoxic goiter, unspecified (ICD-10) High cholesterol ?E78.00 - Pure hypercholesterolemia, unspecified (ICD-10) Hypertension ?I10 - Essential (primary) hypertension (ICD-10) Osteoporosis ?M81.0 - Age-related osteoporosis without current pathological fracture (ICD-10) Lumbar spondylosis ?M47.816 - Spondylosis without myelopathy or radiculopathy, lumbar region (ICD-10) Chronic low back pain ?M54.50 - Low back pain, unspecified (ICD-10) ?G89.29 - Other chronic pain (ICD-10) Surgical History S/P total knee arthroplasty ?Z96.659 - Presence of unspecified artificial knee joint (ICD-10) H/O thumb surgery ?Z98.890 - Other specified postprocedural states (ICD-10) Meds Home Medications and Allergies Home Medications ?Medication ?Instructions ?Recorded ?Confirmed ?Type alendronate 70 mg tablet 70 mg PO QWEEK 07/27/23 12/05/23 History calcium 600 mg (as 1 tab PO BID 07/27/23 12/05/23 History carbonate)-vitamin D3 5 mcg (200 unit) tablet (Calcium 600 + D(3)) docusate sodium 100 mg capsule 100 mg PO .HS PRN constipation 07/27/23 12/05/23 History famotidine 20 mg tablet 20 mg PO .HS 07/27/23 12/05/23 History loratadine 10 mg tablet (Claritin) 10 mg PO DAILY 07/27/23 12/05/23 History meloxicam 15 mg tablet 15 mg PO DAILY 07/27/23 12/05/23 History metoprolol succinate 50 mg capsule 50 mg PO BID 07/27/23 12/05/23 History sprinkle, ext. release 24 hr multivitamin 1 tab PO DAILY 07/27/23 12/05/23 History omeprazole 20 mg capsule,delayed 20 mg PO DAILY 07/27/23 12/05/23 History release pravastatin 20 mg tablet 20 mg PO DAILY 07/27/23 12/05/23 History secukinumab 150 mg/mL subcutaneous 150 mg subcut .[id number] 07/27/23 12/05/23 History pen injector (Cosentyx Pen) sennosides 8.6 mg capsule (senna) 8.6 mg PO .HS PRN constipation 07/27/23 12/05/23 History baclofen 10 mg tablet 10 mg PO TID PRN muscle spasm #90 07/04/24 Rx tabs Allergies Allergy/AdvReac Type Severity Reaction Status Date / Time No Known Drug Allergies Allergy Verified 12/05/23 07:27 Exam Narrative Exam Narrative: Psych-alert and oriented x 3. Attentive and appropriate, constitutionally normal, displays normal mood and affect per situation. There are no obvious deficits in memory, reasoning, or intellect.? Skin-no obvious rashes, bruising, erythema noted to the patient's area of pain.? Extremities- extremities are warm with minimal edema and palpable pulses. Lumbar-tenderness to palpation noted in the lumbar spine and paraspinal musculature. Pain is elicited with flexion, extension, and lateral rotation of the lumbar spine. Range of motion is diminished with these motions. Facet loading maneuvers are positive.? Strength-noted to be unremarkable with the exception of decreased strength rated at 4 out of 5 in bilateral quadriceps femoris, anterior tibialis. Sensory-no notable sensory deficits in the bilateral lower extremities to touch or pinprick in all dermatomal distributions with the exception to decreased sensation to the bilateral L4, 5 dermatomal distribution Sacroiliac - tender to palpation over bilateral PSIS. Positive Carlito's bilaterally. Positive thigh thrust bilaterally. Coordination remains intact.? Gait remains non-antalgic. Assessment and Plan Assessment and Plan (1) Lumbar stenosis with neurogenic claudication: (2) Sacroiliac joint dysfunction of both sides: Plan 69yof who presents for assessment. failed conservative measures, as noted. imaging reviewed, as noted. given symptoms and imaging, prudent to attempt bilateral L4-5 transforaminal epidural steroid injection under fluoroscopic guidance. she is in agreement. may even benefit from bilateral sij injection under fluoroscopic guidance. meds reviewed, no changes. follow up after procedure.
== END 2024-07-30 10:49 | disposition home or self-care (01) ==
LOC: PM 10:49
PROVIDERS: PCP Family Medicine; Visit Provider Anesthesiology
DX: M48.062 Spinal stenosis, lumbar region with neurogenic claudication (principal); M53.3 Sacrococcygeal disorders, not elsewhere classified
CPT/HCPCS: G0463

== ENCOUNTER 2024-08-06 07:22 | Day surgery (SDC) | payer MEDICARE, OTHER, SELFPAY ==
--- OUTSIDE RECORDS SUMMARY | 2024-08-06 07:25 | XMS_ITS | CCD ---
Author Organization [facility] Care Team Providers Care Outside Industrial Sales Representative Name Role Phone CURT ., DR SERNA Attending Unavailable CURT ., DR SERNA Consulting Unavailable CURT ., DR SERNA Primary Care Unavailable CURT ., DR SERNA Admitting Unavailable ZIEBER, DR PAULINO Liu Consulting Unavailable Curt CHUN, Daphne Calles Primary Care Provider [phone] Shannan CHUN, Pamela Zheng Attending Unavailable Shannan CHUN, Pamela Zheng Attending Unavailable Shannan CHUN, Pamela Zheng Attending Unavailable DAVEY, IRIS L Attending Unavailable [...] L Attending Unavailable AMIE, FABIÁN Referring Unavailable KARLA TYLER Attending Unavailable Allergies Allergy Classification Reported Allergen(s) Allergy Type Date of Onset Reaction(s) Facility (1 source) Leucine Drug Allergy [facility] Repository (1 source) Misc-Other; Translations: [Misc-Other] Propensity to adverse reactions (disorder) [facility] Repository (3 sources) nickel sulfate Drug Allergy 5 Unknown [facility] Medications Current Medications Medication Drug Class(es) Dates Sig (Normalized) Sig (Original) alendronic acid 70 mg oral tablet (12 sources) Bisphosphonate take 1 tablet by mouth every week alendronate (Fosamax) 70 MG tablet TAKE 1 TABLET BY MOUTH ONE TIME PER WEEK Active calcium carbonate 1500 mg / cholecalciferol 200 unt oral tablet (12 sources) Vitamin D Calcium Carb-Cholecalcife rol (Calcium 600 + D) 600-5 MG-MCG tablet 1 (one) time each day at the same time. Active clobetasol propionate 0.0005 mg/mg topical ointment (12 sources) Corticosteroid Start: 07-25-2023 clobetasol (Temovate) 0.05 % ointment Indications: Psoriasis vulgaris (CMS/HCC) Apply to affected areas, up to twice a day when flared, do not use one the face, groin, or underarms, 30 day supply 30 g 11 07/25/2023 Active famotidine 20 mg oral tablet (12 sources) Histamine-2 Receptor Antagonist famotidine (Pepcid) 20 MG tablet Active loratadine 10 mg oral tablet (12 sources) loratadine (Claritin) 10 MG tablet 1 (one) time each day at the same time. Active meloxicam 15 mg oral tablet (12 sources) Nonsteroidal Anti-inflammatory Drug take 1 tablet by mouth in the morning meloxicam (Mobic) 15 MG tablet Take 15 mg by mouth in the morning. Active metoprolol tartrate 50 mg oral tablet (12 sources) beta-Adrenergic Mercedes take 1 tablet by mouth twice daily metoprolol tartrate (Lopressor) 50 MG tablet TAKE 1 AND 1/2 TABLETS ORALLY TWICE A DAY 90 DAYS Active Multiple Vitamins-Minerals (SENIOR MULTIVITAMIN PLUS PO) (12 sources) Multiple Vitamins-Minerals (SENIOR MULTIVITAMIN PLUS PO) Active Multiple Vitamin s-Minerals (SENIOR MULTIVITAMIN PLUS PO) omeprazole 20 mg delayed release oral capsule (12 sources) Proton Pump Inhibitor take 1 capsule by mouth in the morning omeprazole (PriLOSEC) [address] capsule Take 20 mg by mouth in the morning and 20 mg before bedtime. Active pravastatin sodium 20 mg oral tablet (12 sources) HMG-CoA Reductase Inhibitor take 1 tablet by mouth in the morning pravastatin (Pravachol) 20 MG tablet Take 20 mg by mouth in the morning. Active 1 ml secukinumab 150 mg/ml auto-injector (12 sources) Interleukin-17A Antagonist Start: Secukinumab, 300 MG Dose, (Cosentyx Sensoready, 300 MG,) 150 MG/ML solution auto-injector Indications: Psoriasis vulgaris (CMS/HCC) Inject 300 mg under the skin every 28 (twenty-eight) days 2 each 2 06/11/2024 Active Start: 05-19-2023 inject 28 mg by subc utaneous injection once daily Cosentyx Sensoready, 300 MG, 150 MG/ML solution auto-injector Indications: Psoriasis vulgaris (CMS/HCC) Inject 300 mg under the skin every 28 (twenty-eight) days. 2 each 05/19/2023 Active Problems Active Problems Problem Classification Problem Date Documented Da te Episodic/Chronic Menopausal disorders (4 sources) Other primary ovarian failure; Translations: [OTHER PRIMARY OVARIAN FAILURE] Onset: 10-13-2022 Chronic Other bone disease and musculoskeletal deformities (1 source) Other specified disorders of bone density and structure, unspecified site; Translations: [OT D/O BONE DEN STRUCT UNS SITE] Onset: 10-19-2022 Episodic Other inflammatory condition of skin (2 sources) Psoriasis vulgaris; Translations: [Psoriasis vulgaris] 07-26-2024 Chronic Other non-traumatic joint disorders (12 sources) Pain [...] Spondylosis; intervertebral disc disorders; other back problems (16 sources) Lumbar spondylosis; Translations: [Spondylosis without myelopathy or radiculopathy, lumbar region] Onset: 07-28-2023 07-28-2023 Chronic Past or Other Problems Problem Classification Problem Date Documented Date Episodic/Chronic Other nervous system disorders (16 sources) Antalgic gait; Translations: [Other abnormalities of gait and mobility] Onset: 07-28-2023 07-28-2023 Episodic Other non-traumatic joint disorders (4 sources) Hip pain; Translations: [Pain in right hip] Onset: 07-28-2023 07-28-2023 Episodic Results Test Name Value Interpretation Reference Range Facil ity Mitogen stimulated gamma int erferon corrected for background Qn (Bld)on 07-28-2024 M. tuberculosis stim IFN-g Ql (Bld) [Interp] Negative Negative [facility] Comment on above: No response to M tub erculosis antigens detected. Infection with M tuberculosis is unlikely, but high risk individuals should be considered for additional testing (ATS/IDSA/CDC Clinical Practice Guidelines, 2017). The reference range is an Antigen minus Nil result of <0.35 IU/mL. Chemiluminescence immunoassay methodology QUANTIFERON TB GOLD INCUBATION Incubation performed. [facility] No Panel Informationon 07-28 Performed at: [address] [place] [address] [id number] Branch Store Manager: Preet Porter PhD, Phone: [phone] [facility] QUANTIFERON-TB GOLD PLUSon 0 07-28-2024 Gamma interferon background IA Qn (Bld) 0.04 IU/mL [facility] M. tuberculosis stim IFN-g by CD4+ CD8+ T-cells corrected for background Qn (Bld) 0.05 IU/mL [facility] IFN-g by CD4+ T-cells corrected for background Qn (Bld) 0.05 [IU]/mL IU/mL [facility] Mitogen stimulated gamma interferon corrected for background Qn (Bld) >10.00 IU/mL [facility] are Service comment (Unsp spec) [Interp] Comment [facility] Comment on above: QuantiFERON-TB Gold Plus is a qualitative indirect test for M tuberculosis infection (including disease) and is intended for use in conjunction with risk assessment, radiography, and other medical and diagnostic evaluations. The QuantiFERON-TB Gold Plus result is determined by subtracting the Nil value from either TB antigen (Ag) value. The Mitogen tube serves as a control for the test. MG MAMM SCREEN 3D REGINO CADon 10-13-2022 MG MAMM SCREEN 3D REGINO CAD Patient: LAKESHA PUGH Exam Date: 10/13/2022 : 1955 Gender:F Ordering : DR DAPHNE ELIAS . Admission #: [id number] Family : Order #: [id number] CLICK HERE TO VIEW EXAM RADIOLOGY REPORT [...] carcinoma cancer at age 50. LOCATION: [facility] BREAST COMPOSITION: Scattered areas fibroglandular density. FINDINGS: [...] M.D. on 10/13/2022 at 13:51 Normal [facility] XR DEXA BONE DENSITYon 10-13 XR DEXA [...] by: PAULINO MENDOZA Date: 2022-10-13 11:38 Normal [facility] Encounters Encounter Date Encounter Type Care Provider Facility Start: 07-26-2024 End: 07-26-2024 Bamboo flowsheet Karla A Felter [employer] Work Phone: [facility] Start: 07-26-2024 End: 07-26-2024 Bamboo flowsheet Karla Pereira Felter [employer] Work Phone: [facility] Start: 07-26-2024 End: 07-28-2024 Orders Only Karla Pereira Felter [employer] Work Phone: [facility] External Department Unsolicited Start: 07-26-2024 End: 07-26-2024 Office outpatient visit 15 minutes Karla Pereira Felter [employer] Work Phone: [facility] Comment on above: Psoriasis vulgaris ( [facility]) Start: 07-26-2024 End: 07-26-2024 ambulatory KARLA A FELTER Not Available Start: 12-05-2023 End: 12-06-2023 ambulatory Pamela Campbell MD Facility:[facility] Start: 11-03-2023 End: 11-03-2023 ambulatory IRIS L DAVEY Not Available Start: 10-31-2023 End: 11-01-2023 ambulatory Pamela Campbell MD Facility:[facility] Start: 10-26-2023 End: 10-26-2023 ambulatory IRIS [...] 10-04-2023 ambulatory Pamela Campbell MD Facility:[facility] Start: 09-29-2023 End: 09-29-2023 ambulatory IRIS L DAVEY Not Available Start: 09-27-2023 End: 09-27-2023 ambulatory IRIS L DAVEY Not Available Start: 09-01-2023 Bamboo flowsheet Iris L Davey PT Work Phone: [facility] Start: 09-01-2023 Bamboo flowsheet Iris L Davey PT Work Phone: [facility] Start: 09-01-2023 End: 09-01-2023 ambulatory Iris L Davey PT Work Phone: [facility] Comment on above: Lumbar spondylosis ( Primary Dx); Right hip pain; Antalgic gait Start: 08-30-2023 Bamboo flowsheet Iris L Davey PT Work Phone: [facility] Start: 08-30-2023 Bamboo flowsheet Iris L Davey PT Work Phone: [facility] Start: 08-30-2023 End: 08-30-2023 ambulatory Iris L Davey PT Work Phone: [facility] Comment on above: Lumbar spondylosis ( Primary Dx); Right hip pain; Antalgic gait Start: 08-25-2023 End: 08-25-2023 ambulatory Iris L Davey PT Work Phone: [facility] Comment on above: Lumbar spondylosis ( Primary Dx); Right hip pain; Antalgic gait Start: 08-23-2023 End: 08-23-2023 ambulatory IRIS L DAVEY Not Available Start: 08-19-2023 Chart abstracting Iris L Davey PT Work Phone: [facility] Start: 08-18-2023 Bamboo flowsheet Iris L Davey PT Work Phone: [facility] Start: 08-18-2023 Bamboo flowsheet Iris L Davey PT Work Phone: [facility] Start: 08-18-2023 End: 08-18-2023 ambulatory Iris L Davey PT Work Phone: [facility] Comment on above: Lumbar spondylosis ( Primary Dx); Right hip pain; Antalgic gait Start: 08-16-2023 End: 08-16-2023 ambulatory IRIS L DAVEY Not Available Start: 08-11-2023 End: 08-11-2023 ambulatory IRIS L DAVEY Not Available Start: 08-09-2023 End: 08-09-2023 ambulatory IRIS L DAVEY Not Available Start: 08-03-2023 End: 08-03-2023 ambulatory IRIS L DAVEY Not Available Start: 10-13-2022 End: 10-14-[address] DAPHNE ELIAS . Facility: Procedures Date Procedure Procedure Detail Performing Clinician Start: 07-26-2024 QUANTIFERON-TB GOLD PLUS Karla Tyler [employer] Work Phone: Start: 07-26-2024 Tb cell mediated ant ign respnse gamma interferon Karla Tyler [employer] Work Phone: Plan of Treatment Date Care Activity Detail Author Start: 07-29-2025 End: 07-29-2025 Patient encounter procedure 07/29/2025 1:10 PM EST Office Visit [facility] [address] [place] [address] Karla Tyler [employer] [address] [place] [address] [facility] Start: 07-26-2024 End: 07-26-2025 QUANTIFERON TB GOLD QUANTIFERON TB GOLD Lab Routine Psoriasis vulgaris ([facility]) Expected: 07/26/2024 (Approximate), Expires: 07/26/2025 [facility] Work Phone: Comment on above: Expected: 07/26/2024 (Approximate), Expires: 07/26/2025 Start: 07-26-2024 End: 07-26-2024 Patient encounter procedure [facility] Comment on above: Arrived Start: 03-18-2024 Influenza vaccination Influenza Vacc ine (#1) [facility] Start: 10-13-2023 End: 10-13-2023 ambulatory 10/13/2023 1:00 PM EDT Treatment [facility] [address] [place] [phone] Davey Iris L, PT [address] [place] [address] [facility] Start: 10-11-2023 End: 10-11-2023 ambulatory 10/11/2023 1:00 PM EDT Treatment [facility] [address] [place] [address] Davey Iris L, PT [address] [place] [address] [facility] Start: 10-06-2023 End: 10-06-2023 ambulatory 10/06/2023 1:00 PM EDT Treatment [facility] [address] [place] [address] Davey Iris L, PT [address] [place] [address] [facility] Start: 10-04-2023 End: 10-04-2023 ambulatory 10/04/2023 1:00 PM EDT Treatment [facility] [address] [place] [phone] Iris Davey L, PT [address] [place] [address] [facility] Start: 09-29-2023 End: 09-29-2023 ambulatory 09/29/2023 1:00 PM EDT Treatment [facility] [address] [place] [address] Iris Davey L, PT [address] [place] [address] [facility] Start: 09-27-2023 End: 09-27-2023 ambulatory 09/27/2023 2:00 PM EDT Treatment [facility] [address] [place] [address] Iris Davey L, PT [address] [place] [address] [facility] Start: 09-01-2023 End: 09-01-2023 ambulatory [facility] Comment on above: Arrived Start: 08-30-2023 End: 08-30-2023 ambulatory [facility] Comment on above: Arrived Start: 08-25-2023 End: 08-25-2023 ambulatory 08/25/2023 1:00 PM EST Treatment [facility] [address] [place] [address] Iris Davey L, PT [address] [place] [address] [facility] Start: 08-23-2023 End: 08-23-2023 ambulatory 08/23/2023 1:00 PM EST Treatment [facility] [address] [place] [address] Iris Davey L, PT [address] [place] [address] [facility] Start: 08-18-2023 End: 08-18-2023 ambulatory 08/18/2023 1:00 PM EST Treatment [facility] [address] [place] [address] Iris Davey, PT [address] [place] [address] Arrived [facility] Comment on above: Arrived Start: 1993 Screening for malign ant neoplasm of breast Mammogram [facility] Start: 1955 Screening for malign ant neoplasm of colon [facility] Immunizations Immunization Date Immunization Notes Care Provider Fa [facility] 04-23-2024 influenza virus vacc ine, unspecified formulation Karla Tyler [employer] Work Phone: [facility] 04-22-2022 SARS-CoV-2, Unspecified Daisy Davey PT Work Phone: [facility] Payers Date Payer Category Payer Private Health Insurance [employer] [id number] 2021 Unknown [id number] 2018 Medicare [id number]. [id number] 1959 Medicare [id number] 1959 Unknown [id number] 1955 Unknown [id number] 2.16.840.1.810745.3.579.2. 593 1955 Unknown [id number] 2.16.840.1.681027.3.579.2. 196 1955 Unknown [id number] 2.16.840.1.408714.3.579.2. 196 1953 Unknown [id number] 2.16.840.1.791623.3.579.2. 196 1953 Unknown [id number] 2.16.840.1.851030.3.579.2. 1259 1953 Unknown [id number] 2.16.840.1.494464.3.579.2. 1259 1953 Unknown [id number] 2.16.840.1.680238.3.579.2. 1259 1953 Unknown [id number] 2.16.840.1.351728.3.579.2. 1259 1953 Unknown [id number] 2.16.840.1.926964.3.579.2. 1259 1953 Unknown [id number] 2.16.840.1.861296.3.579.2. 1259 1953 Unknown [id number] 2.16.840.1.408526.3.579.2. 1259 1953 Unknown [id number] 2.16.840.1.159165.3.579.2. 1259 1953 Unknown [id number] 2.16.840.1.088009.3.579.2. 1259 1953 Unknown [id number] 2.16.840.1.458747.3.579.2. 1259 1953 Unknown [id number] 2.16.840.1.203394.3.579.2. 1259 1953 Unknown [id number] 2.16.840.1.240723.3.579.2. 1259 1953 Unknown [id number] 2.16.840.1.163046.3.579.2. 1259 1953 Unknown [id number] 2.16.840.1.923766.3.579.2. 1259 1953 Unknown [id number] 2.16.840.1.346263.3.579.2. 9 1955 Unknown [id number] 2.16.840.1.494601.3.579.2. 9 1953 Unknown [id number] 2.16.840.1.438231.3.579.2. 1259 1953 Unknown [id number] 2.16.840.1.244308.3.579.2. 9 1955 Unknown [id number] 2.16.840.1.384780.3.579.2. 1259 Social History Date Type Detail Facility Start: 04-25-2023 Tobacco smoking status SDIS Never sm oked tobacco [facility] Start: 04-25-2023 Tobacco use and exposure Smoke less tobacco non-user [facility] Start: 07-25-2023 End: 07-26-2024 Alcohol intake Current drinker of alcohol (finding) [facility] Start: 08-01-2023 End: 07-26-2024 [facility] of [facility] function [facility] Start: 08-01-2023 End: 07-26-2024 Alcohol Use Disorder Identification Test - Consumption [...] [facility] History of Present illness Narrative 07-26-2024 Karla Tyler, [employer] - 07/26/2024 1:20 PM EST Note Date & Type Note Facility 07-26-2024 History of Presen t illness Narrative Follow up Diagnosis: Psoriasis Location: Hands, legs and arms, (scalp started 6 months ago) Last visit: 1 year ago Symptoms: scaly, red Status: Mostly clear on treatment Current treatment: Clobetasol ointment 0.05% bid (uses as needed), Cosentyx 300mg/mL every 28 days Patient is due for TB test. Patient got denied for patient assistance program for this year, patient called Medicare and they said she would just need to pay the upfront cost of $2000 and then medicare would take over payments All pertinent medical history, medications, and allergies were reviewed. General Exam: alert, oriented to person, place, and time, normal affect, well appearing Unaccompanied A focused exam completed based on patient reported problems, see below: 1. Psoriasis vulgaris (CMS/HCC) Left Frontal Scalp, Left Hand - Anterior, Left Occipital Scalp, Mid Forehead, Mid Frontal Scalp, Mid Occipital Scalp, Mid Parietal Scalp, Right Forehead, Right Hand - Anterior, Right Occipital Scalp Well-marginated erythematous papules/plaques with silvery scale. Improved since last visit BSA 1%. PASI 0.3 SPGA 1 ON Treatment The patient was informed that psoriasis is a chronic condition that can be controlled but not cured. Switch from Cosenytx to Taltz due to insurance no longer covering the Cosenytx. Start Fluocinonide solution daily for scalp when flared, hold when clear. Instructed to contact office if psoriasis worsens or fails to improve despite treatment. TB ordered today. Patient assistance Patient is well controlled on biologic. Recommend remaining on biologic. Insurance companies that force providers to change therapies could cause plaque psoriasis flairs and worsening psoriatic arthritis and are responsible for worse outcomes Related Procedures QUANTIFERON TB GOLD Related Medications clobetasol (Temovate) 0.05 % ointment Apply to affected areas, up to twice a day when flared, do not use one the face, groin, or underarms, 30 day supply Secukinumab, 300 MG Dose, (Cosentyx Sensoready, 300 MG,) 150 MG/ML solution auto-injector Inject 300 mg under the skin every 28 (twenty-eight) days Next Visit: 1 year documented in this encounter [facility] History [...] 0/10. I feel pretty good today. Hasn't [id number] much activity yet this morning. Overall progress: Patient reports ~90% overall improvement in hip pain and mobility since SOC. Back pain is what is limiting her functional mobility at this time. Uses [facility] for long distance community negotiation. Will be [...] ROM and strengthening. documented in this encounter [facility] Evaluation note Note Date & Type Note Facility Evaluation note Diagnosis Lumbar spondylosis- Primary Lumbosacral spondylosis without myelopathy Right hip pain Pain in joint, pelvic region and thigh Antalgic gait documented in this encounter [facility] Evaluation note Note Date & Type Note Facility Evaluation note Diagnosis Lumbar spondylosis- Primary Lumbosacral spondylosis without myelopathy Right hip pain Pain in joint, pelvic region and thigh Antalgic gait documented in this encounter [facility] Evaluation note Note Date & Type Note Facility Evaluation note Diagnosis Lumbar spondylosis- Primary Lumbosacral spondylosis without myelopathy Right hip pain Pain in joint, pelvic region and thigh Antalgic gait documented in this encounter [facility] Evaluation note Note Date & Type Note Facility Evaluation note Diagnosis Lumbar spondylosis- Primary Lumbosacral spondylosis without myelopathy Right hip pain Pain in joint, pelvic region and thigh Antalgic gait documented in this encounter [facility] Evaluation note Note Date & Type Note Facility Evaluation note Diagnosis Psoriasis vulgaris ([facility]) Other psoriasis documented in this encounter [facility] Summary Purpose Family History No Family History Records FoundNo Family History Records FoundNo Family History Records Found Advance Directives No Advanced Directives Records FoundNo Advanced Directives Records FoundNo Advanced Directives Records Found Additional Source Comments INFORMATION SOURCE (unrecogn ized section and content) DATE CREATED AUTHOR 10/22/[address] [facility] DATE CREATED AUTHOR AUTHOR'S ORGANIZ ATION 12/11/2023 [facility] DATE CREATED AUTHOR AUTHOR'S ORGANIZ ATION 07/31/2024 [facility] Special[facility] EPIC Care Teams (unrecognized sec tion and content) Outside Industrial Sales Representative Relationship Specialty Start Date End Date Daphne Elias MD [address] [place] [address] PCP - General Family Medicine 04/25/23 Outside Industrial Sales Representative Relationship Specialty Start Date End Date Daphne Elias MD [address] [place] [facility] [address] PCP - General Family Medicine 04/25/23 Outside Industrial Sales Representative Relationship Specialty Start Date End Date Daphne Elias MD [address] [place] [facility] [address] PCP - General Family Medicine 04/25/23 Outside Industrial Sales Representative Relationship Specialty Start Date End Date Daphne Elias MD [address] [place] [facility] [address] PCP - General Family Medicine 04/25/23 Outside Industrial Sales Representative Relationship Specialty Start Date End Date Daphne Elias MD [address] [place] [facility] [address] PCP - General Family Medicine 04/25/23 Outside Industrial Sales Representative Relationship Specialty Start Date End Date Daphne Elias MD [address] [place] [facility] [address] PCP - General Family Medicine 04/25/23 Outside Industrial Sales Representative Relationship Specialty Start Date End Date Daphne Elias MD [address] [place] [facility] [address] PCP - General Family Medicine 04/25/23 Outside Industrial Sales Representative Relationship Specialty Start Date End Date Daphne Elias MD [address] [place] [facility] [address] PCP - General Family Medicine 04/25/23 Outside Industrial Sales Representative Relationship Specialty Start Date End Date Daphne Elias MD [address] [place] [address] PCP - General Family Medicine 04/25/23 Outside Industrial Sales Representative Relationship Specialty Start Date End Date Daphne Elias MD [address] [place] [address] PCP - General Family Medicine 04/25/23 Reason for Visit (unrecogniz ed section and content) Specialty Diagnoses / Procedures Referred By Contac t Referred To Contact Physical Therapy Diagnoses Spondylosis without myelopathy or radiculopathy, lumbar region Procedures MO PHYSICAL THERAPY EVALUATION LOW COMPLEX 20 MINS Fabián Graham, BLEACH SUPERVISOR [address] [place] [address] Iris Davey, PT [address] [facility] [address] [place] [address] Referral ID Status Reason Start Date Expiration Date V isits Requested Visits Authorized [id number] Authorized 07/27/2023 01/23/2024 30 30 Reason Comments Follow-up FOR RECORDS PERTAINING TO PATIENTS WHO ARE [...] BE BASED ON THE PRIMARY CLINICAL RECORDS. [facility] [employer] [facility]. provides no warranty or guarantee of the accuracy or completeness of information in this document.
[2024-08-06 07:37] VITALS: BP 150/78; PULSE 58; TEMP 36.3; O2SAT 98
[2024-08-06 08:29] VITALS: BP 168/70; PULSE 55; O2SAT 97
[2024-08-06 08:32] VITALS: BP 164/74; PULSE 52; O2SAT 97
[2024-08-06] MEDS: 0.9 % SODIUM CHLORIDE 10 ML SYRINGE - SALINE FLUSH INJ (08:34)
--- NOTE | 2024-08-06 08:34 | W.PM.PROCNOT ---
Date of procedure: 08/06/24 Pre-op diagnosis: Pain due to lumbar stenosis with neurogenic claudication Post-op diagnosis: same as pre-op Procedure: Procedure: Bilateral L4-5 transforaminal epidural steroid injection Medications: Bupivacaine 0.25% 2cc, lidocaine 2% 1cc, depomedrol 80mg The patient was seen and examined in the preoperative holding area.? Informed consent was obtained and placed on the chart.? Patient was brought to the medical procedure unit and placed in the prone position where a timeout was completed verifying the correct patient, procedure site, position, and planned special equipment using sterile aseptic technique.? Under direct fluoroscopic visualization a 25-gauge Quincke tipped spinal needle was advanced at level left L4-5 to the designated neural foramen where contrast dye was injected to show adequate spread.? There was no evidence of vascular or adverse uptake.? Epidural spread was appreciated.? The above-mentioned injectate was then placed in a 1.5 mL aliquot preceded by negative aspiration.? The needle was removed. The same procedure, at the same level, was completed on the opposite side. ? Patient was taken to the postprocedural recovery area and monitored for an appropriate length of time before found suitable for discharge in the accompaniment of a responsible adult. Anesthesia: Local Surgeon: aPmela Campbell Pathology: none sent Condition: stable Disposition: no change
[2024-08-06] MEDS: LIDOCAINE HCL 2% 400 MG/20 ML MDV 3 ML INJ (08:35)
[2024-08-06] MEDS: IOHEXOL 240 MG/ML - 10 ML VIAL 12 MG INJ (08:35)
[2024-08-06] MEDS: METHYLPREDNISOLONE ACETATE 80 MG/ML VIAL INJ (08:35)
[2024-08-06] MEDS: BUPIVACAINE HCL 0.25% PF 25 MG/10 ML VIAL INJ (08:35)
== END 2024-08-06 08:38 | disposition home or self-care (01) ==
LOC: SURGOUT 07:23
PROVIDERS: PCP Family Medicine; Visit Provider Anesthesiology
DX: M48.062 Spinal stenosis, lumbar region with neurogenic claudication (principal)
CPT/HCPCS: 64483; J0665; J1010; Q9966

== ENCOUNTER 2024-08-15 09:20 | Outpatient (OUT) | payer MEDICARE, OTHER, SELFPAY ==
--- OUTSIDE RECORDS SUMMARY | 2024-08-15 09:24 | XMS_ITS | CCD ---
Author Organization [facility] Care Team Providers Care Inspecting Engineer Name Role Phone CURT ., DR SERNA Attending Unavailable CURT ., DR SERNA Consulting Unavailable CURT ., DR SERNA Primary Care Unavailable CURT ., DR SERNA Admitting Unavailable ZIEBER, DR PAULINO Liu Consulting Unavailable Curt CHUN, Daphne Calles Primary Care Provider [phone] DAVEY, IRIS L Attending Unavailable AMIE, FABIÁN [...] FABIÁN Referring Unavailable KARLA TYLER Attending Unavailable Gieditis , Pamela Zheng Attending Unavailable Gibrian CHUN, Andrius Zheng Attending Unavailable Shannan CHUN, Andrius Zheng Attending Unavailable Shannan CHUN, Andrius Zheng Attending Unavailable Gibrian CHUN, Pamela Zheng Attending Unavailable Allergies Allergy Classification Reported Allergen(s) Allergy Type Date of Onset Reaction(s) Facility (1 source) Leucine Drug Allergy [facility] Repository (1 source) Mis-Other; Translations: [Mis-Other] Propensity to adverse reactions (disorder) [facility] Repository (3 sources) nickel sulfate Drug Allergy [...] bone density and structure, unspecified site; Translations: [[facility] D/O BONE DEN STRUCT UNS SITE] Onset: [...] stim IFN-g Ql (Bld) [Interp] Negative Negative [facility] Comment on above: No response to M tub erculosis antigens detected. Infection with M tuberculosis is unlikely, but high risk individuals should be considered for additional testing (ATS/IDSA/CDC Clinical Practice Guidelines, 2017). The reference range is an Antigen minus Nil result of <0.35 IU/mL. Chemiluminescence immunoassay methodology QUANTIFERON TB GOLD INCUBATION Incubation performed. [facility] No Panel Informationon 07-28 Performed at: [address] [place] [address] [id number] Registered Midwife: Preet Porter PhD, Phone: [phone] [facility] QU[facility]IFERON-TB GOLD PLUSon 0 07-28-2024 Gamma interferon background IA Qn (Bld) 0.04 IU/mL [facility] M. tuberculosis stim IFN-g by CD4+ CD8+ T-cells corrected for background Qn (Bld) 0.05 IU/[facility] IFN-g by CD4+ T-cells corrected for background Qn (Bld) 0.05 [IU]/mL IU/mL [facility] Mitogen stimulated gamma interferon corrected for background Qn (Bld) >10.00 IU/mL [facility] are Service comment (Unsp spec) [Interp] Comment [facility] Comment on above: QuantiFERON-TB Gold [...] : DR DAPHNE ELIAS . Admission #: [id number] Family : Order #: [id number] CLICK HERE TO VIEW EXAM RADIOLOGY REPORT [...] carcinoma cancer at age 50. LOCATION: [facility] BREAST COMPOSITION: Scattered areas fibroglandular density. [...] M.D. on 10/13/2022 at 13:51 Normal [facility] XR DEXA BONE DENSITYon 10-13 XR [...] 11:38 Normal [facility] Encounters Encounter Date Encounter Type Care Provider Facility Start: 08-06-2024 End: 08-06-2024 ambulatory Pamela Campbell MD Facility:[facility] Start: 07-30-2024 End: 07-30-2024 ambulatory Pamela Campbell MD Facility:[facility] Start: 07-26-2024 End: 07-26-2024 Bamboo flowsheet Karla A Felter MANAGER [employer] Work Phone: [facility] Start: 07-26-2024 End: 07-26-2024 Bamboo flowsheet Karla A Felter MANAGER [employer] Work Phone: [facility] Start: 07-26-2024 End: 07-28-2024 Orders Only Karla A Felter MANAGER [employer] Work Phone: [facility] Unsolicited Start: 07-26-2024 End: 07-26-2024 Office outpatient visit 15 minutes Karla A Felter MANAGER [employer] Work Phone: [facility] Comment on above: Psoriasis vulgaris ( [facility]) Start: 07-26-2024 End: 07-26-2024 ambulatory KARLA A FELTER Not Available Start: 12-05-2023 End: 12-05-2023 ambulatory Pamela Campbell MD Facility:[facility] Start: 11-03-2023 End: 11-03-2023 ambulatory IRIS L DAVEY Not Available Start: 10-31-2023 End: 10-31-2023 ambulatory Pamela Campbell MD Facility:[facility] Start: 10-26-2023 End: 10-26-2023 ambulatory IRIS L DAVEY Not Available Start: 10-19-2023 End: 10-19-2023 ambulatory IRIS L DAVEY Not Available Start: 10-13-2023 End: 10-13-2023 ambulatory IRIS L DAVEY Not Available Start: 10-11-2023 End: 10-11-2023 ambulatory IRIS L DAVEY Not Available Start: 10-06-2023 End: 10-06-2023 ambulatory IRIS L DAVEY Not Available Start: 10-04-2023 End: 10-04-2023 ambulatory IRIS L DAVEY Not Available Start: 10-03-2023 End: 10-03-2023 ambulatory Pamela Campbell MD Facility:[facility] Start: 09-29-2023 End: 09-29-2023 ambulatory IRIS L DAVEY Not Available Start: 09-27-2023 End: 09-27-2023 ambulatory IRIS L DAVEY Not Available Start: 09-01-2023 Bamboo flowsheet Iris L Davey PT Work Phone: [facility] PT Start: 09-01-2023 Bamboo flowsheet Iris L Davey PT Work Phone: [facility] Start: 09-01-2023 End: 09-01-2023 ambulatory Iris L Davey PT Work Phone: [facility] PT Comment on above: Lumbar spondylosis ( Primary Dx); Right hip pain; Antalgic gait Start: 08-30-2023 Bamboo flowsheet Iris L Davey PT Work Phone: [facility] Start: 08-30-2023 Bamboo flowsheet Iris L Davey PT Work Phone: [facility] PT Start: 08-30-2023 End: 08-30-2023 ambulatory Iris L Davey PT Work Phone: [facility] PT Comment on above: Lumbar spondylosis ( Primary Dx); Right hip pain; Antalgic gait Start: 08-25-2023 End: 08-25-2023 ambulatory Iris L Davey PT Work Phone: [facility] PT Comment on above: Lumbar spondylosis ( Primary Dx); Right hip pain; Antalgic gait Start: 08-23-2023 End: 08-23-2023 ambulatory IRIS L DAVEY Not Available Start: 08-19-2023 Chart abstracting Iris L Davey PT Work Phone: [facility] PT Start: 08-18-2023 Bamboo flowsheet Iris L Davey PT Work Phone: [facility] PT Start: 08-18-2023 Bamboo flowsheet Iris L Davey PT Work Phone: [facility] PT Start: 08-18-2023 End: 08-18-2023 ambulatory Iris L Davey PT Work Phone: [facility] PT Comment on above: Lumbar spondylosis [...] Start: 07-26-2024 QUANTIFERON-TB GOLD PLUS Karla Tyler MANAGER [employer] Work Phone: Start: 07-26-2024 Tb cell mediated ant ign respnse gamma interferon Karla Tyler MANAGER [employer] Work Phone: Plan of Treatment Date Care Activity Detail Author Start: 07-29-2025 End: 07-29-2025 Patient encounter procedure 07/29/2025 1:10 PM EST Office Visit [facility] [address] [place] [address] Karla Tyler, MANAGER [employer] [address] [place] [address] [facility] Start: 07-26-2024 End: 07-26-2025 QUANTIFERON TB GOLD QUANTIFERON TB GOLD Lab Routine Psoriasis vulgaris ([facility]) Expected: 07/26/2024 (Approximate), Expires: 07/26/2025 [facility] Work Phone: Comment on above: Expected: 07/26/2024 (Approximate), Expires: 07/26/2025 Start: 07-26-2024 End: 07-26-2024 [facility] Comment on above: Arrived Start: 03-18-2024 Influenza vaccination Influenza Vacc ine (#1) [facility] Start: 10-13-2023 End: 10-13-2023 ambulatory 10/13/2023 1:00 PM EDT Treatment [facility] [address] [place] [phone] Jolynn Iris L, PT [address] [place] [address] [facility] PT Start: 10-11-2023 End: 10-11-2023 ambulatory 10/11/2023 1:00 PM EDT [facility] [address] [place] [address] Davey, Iris L, PT [address] [place] [address] [facility] Start: 10-06-2023 End: 10-06-2023 ambulatory 10/06/2023 1:00 PM EDT Treatment [facility] [address] [place] [address] Jolynn Irsi L, PT [address] [place] [address] [facility] Start: 10-04-2023 End: 10-04-2023 ambulatory 10/04/2023 1:00 PM EDT Treatment [facility] [address] [place] [address] Davey Iris L, PT [address] [place] [address] [facility] Start: 09-29-2023 End: 09-29-2023 ambulatory 09/29/2023 1:00 PM EDT Treatment [facility] [address] [place] [address] Davey, Iris L, PT [address] [place] [address] [facility] Start: 09-27-2023 End: 09-27-2023 ambulatory 09/27/2023 2:00 PM EDT Treatment [facility] [address] [place] [address] Davey, Iris L, PT [address] [place] [address] [facility] Start: 09-01-2023 End: 09-01-2023 ambulatory [facility] Comment on above: Arrived Start: 08-30-2023 End: 08-30-2023 ambulatory [facility] Comment on above: Arrived Start: 08-25-2023 End: 08-25-2023 ambulatory 08/25/2023 1:00 PM EST Treatment [facility] [address] [place] [address] DaveyIris L, PT [address] [place] [address] [facility] Start: 08-23-2023 End: 08-23-2023 ambulatory 08/23/2023 1:00 PM EST Treatment [facility] [address] [place] [address] Jolynn Iris Singleton, PT [address] [place] [address] [facility] Start: 08-18-2023 End: 08-18-2023 ambulatory 08/18/2023 1:00 PM EST Treatment [facility] [address] [place] [address] Iris Davey, PT [address] [place] [address] Arrived [facility] PT Comment on above: Arrived Start: 1993 Screening for malign ant neoplasm of breast Mammogram [facility] Start: 1953 Screening for malign ant neoplasm of colon [facility] Immunizations Immunization Date Immunization Notes Care Provider Fa [facility] 04-23-2024 influenza virus vacc ine, unspecified formulation Karla Tyler MANAGER [employer] Work Phone: [facility] 04-22-2022 SARS-CoV-2, Unspecified Daisy Davey PT Work Phone: [facility] Payers Date Payer Category Payer Private Health Insurance [employer] [id number] 2021 Unknown [id number] 2018 Medicare [id number] [id number]. [id number] 1959 Medicare [id number] 1959 Unknown [id number] 1953 Unknown [id number] 2.16.840.1.834010.3.579.2. 593 1953 Unknown [id number] 2.16.840.1.824542.3.579.2. 1259 1953 Unknown [id number] 2.16.840.1.502613.3.579.2. 1259 1953 Unknown [id number] 2.16.840.1.036115.3.579.2. 1259 1953 Unknown [id number] 2.16.840.1.850918.3.579.2. 1259 1953 Unknown [id number] 2.16.840.1.995857.3.579.2. 1259 1953 Unknown [id number] 2.16.840.1.648530.3.579.2. 1259 1953 Unknown [id number] 2.16.840.1.395386.3.579.2. 1259 1953 Unknown [id number] 2.16.840.1.934612.3.579.2. 1259 1953 Unknown [id number] 2.16.840.1.974157.3.579.2. 1259 1953 Unknown [id number] 2.16.840.1.754015.3.579.2. 1259 1953 Unknown [id number] 2.16.840.1.556392.3.579.2. 1259 1953 Unknown [id number] 2.16.840.1.761236.3.579.2. 1259 1953 Unknown [id number] 2.16.840.1.502877.3.579.2. 1259 1953 Unknown [id number] 2.16.840.1.358206.3.579.2. 1259 1953 Unknown [id number] 2.16.840.1.684900.3.579.2. 1259 1953 Unknown [id number] 2.16.840.1.913657.3.579.2. 1259 1953 Unknown [id number] 2.16.840.1.558953.3.579.2. 1259 1953 Unknown [id number] 2.16.840.1.716782.3.579.2. 1259 1953 Unknown [id number] 2.16.840.1.259016.3.579.2. 9 1953 Unknown [id number] 2.16.840.1.074995.3.579.2. 196 1953 Unknown [id number] 2.16.840.1.555205.3.579.2. 196 1953 Unknown [id number] 2.16.840.1.554608.3.579.2. 196 1953 Unknown [id number] 2.16.840.1.846421.3.579.2. 196 1953 Unknown [id number] 2.16.840.1.583153.3.579.2. 196 Social History Date Type Detail Facility Start: 04-25-2023 Tobacco smoking status NHIS Never sm oked tobacco [facility] Start: 04-25-2023 Tobacco use and exposure Smoke less tobacco non-user [facility] Start: 07-25-2023 End: 07-26-2024 Alcohol intake Current drinker of alcohol (finding) [facility] Start: 08-01-2023 End: 07-26-2024 History of Social function [facility] Start: 08-01-2023 End: 07-26-2024 Alcohol [...] of Present illness Narrative 07-26-2024 Karla Tyler, [employer]AH[employer]ER - 07/26/2024 1:20 PM EST Note Date [...] 0/10. I feel pretty good today. Hasn't [id number] much activity yet this morning. Overall progress: Patient reports ~90% overall improvement in hip pain and mobility since SOC. Back pain is what is limiting her functional mobility at this time. Uses [facility] for long distance community negotiation. Will be [...] her functional mobility at this time. Uses [facility] for long distance community negotiation. Will be [...] Therapy Treatment Visit Patient Name: Cesia Pugh Today' Date: 08/25/2023 Encounter Diagnoses Name Primary? Lumbar [...] ROM and strengthening. documented in this encounter [facility] Evaluation note Note Date & Type Note Facility Evaluation note Diagnosis Lumbar spondylosis- Primary Lumbosacral spondylosis without myelopathy Right hip pain Pain in joint, pelvic region and thigh Antalgic gait documented in this encounter [facility] Evaluation note Note Date & Type Note Facility Evaluation note Diagnosis Lumbar spondylosis- Primary Lumbosacral spondylosis without myelopathy Right hip pain Pain in joint, pelvic region and thigh Antalgic gait documented in this encounter [facility] Evaluation note Note Date & Type Note Facility Evaluation note Diagnosis Lumbar spondylosis- Primary Lumbosacral spondylosis without myelopathy Right hip pain Pain in joint, pelvic region and thigh Antalgic gait documented in this encounter [facility] Evaluation note Note Date & Type Note Facility Evaluation note Diagnosis Lumbar spondylosis- Primary Lumbosacral spondylosis without myelopathy Right hip pain Pain in joint, pelvic region and thigh Antalgic gait documented in this encounter [facility] Evaluation note Note Date & Type Note Facility Evaluation note Diagnosis Psoriasis vulgaris (CMS/HCC) Other psoriasis documented in this encounter [facility] Summary Purpose Family History No Family History Records FoundNo Family History Records FoundNo Family History Records Found Advance Directives No Advanced Directives Records FoundNo Advanced Directives Records FoundNo Advanced Directives Records Found Additional Source Comments INFORMATION SOURCE (unrecogn ized section and content) DATE CREATED AUTHOR 10/22/2022 [facility] DATE CREATED AUTHOR AUTHOR'S ORGANIZ ATION 07/31/2024 [facility] EPIC DATE CREATED AUTHOR AUTHOR'S ORGANIZ ATION 08/14/2024 [facility] Care Teams (unrecognized sec tion and content) Inspecting Engineer Relationship Specialty Start Date End Date Daphne Elias MD [address] [place] [address] PCP - General Family Medicine 04/25/23 Inspecting Engineer Relationship Specialty Start Date End Date Daphne Elias MD [address] [place] [address] PCP - General Family Medicine 04/25/23 Inspecting Engineer Relationship Specialty Start Date End Date Daphne Elias MD [address] [place] [address] PCP - General Family Medicine 04/25/23 Inspecting Engineer Relationship Specialty Start Date End Date Daphne Elias MD [address] [place] [address] PCP - General Family Medicine 04/25/23 Inspecting Engineer Relationship Specialty Start Date End Date Daphne Elias MD [address] [place] [address] PCP - General Family Medicine 04/25/23 Inspecting Engineer Relationship Specialty Start Date End Date Daphne Elias MD [address] [place] [address] PCP - General Family Medicine 04/25/23 Inspecting Engineer Relationship Specialty Start Date End Date Daphne Elias MD [address] [place] [address] PCP - General Family Medicine 04/25/23 Inspecting Engineer Relationship Specialty Start Date End Date Daphne Elias MD [address] [place] [address] PCP - General Family Medicine 04/25/23 Inspecting Engineer Relationship Specialty Start Date End Date Daphne Elias MD [address] [place] [address] PCP - General Family Medicine 04/25/23 Inspecting Engineer Relationship Specialty Start Date End Date Daphne Elias MD [address] [place] [address] PCP - General Family Medicine 04/25/23 Reason for Visit (unrecogniz ed section and content) Specialty Diagnoses / Procedures Referred By Contac t Referred To Contact Physical Therapy Diagnoses Spondylosis without myelopathy or radiculopathy, lumbar region Procedures PA PHYSICAL THERAPY EVALUATION LOW COMPLEX 20 MINS Fabián Graham, [address] [place] [address] Iris Davey, PT [address] [place] [address] Referral ID Status Reason Start Date Expiration Date V isits Requested Visits Authorized [id number] Authorized 07/27/2023 01/23/2024 30 30 Reason Comments [...] BE BASED ON THE PRIMARY CLINICAL RECORDS. [facility]. provides no warranty or guarantee of the accuracy or completeness of information in this document.
--- NOTE | 2024-08-15 09:34 | P.CN_ITS ---
Consult Note: HPI Data of Consult Patient: known to practice within the last 3 years Requesting Physician: Lynn Graham NP Primary Care Provider: Julio Elias MD Consult Narrative Reason for consult: f/u Narrative: Lakesha Cardona a pleasant 69 year old with a hx of longstanding low back and SIJ pain presents for evaluation. recent lumbar MRI consistent with lumbar spondylosis, DDD, and multilevel moderate to severe stenosis. pain today 0/10, increasing to 6/10 in bilateral SIJ with standing and walking. recent bilateral L4/5 TFESI providing >80% improvement in lumbar stenosis with NC symptoms as well as functional ability per pt. continues to utilize baclofen and mobic PRN. has failed heat, ice, tylenol, ibuprofen, and 6 weeks of provider guided HEP. DELMIS 9% today. denies falls or injury. cc:: CC: Lynn Graham NP Review of Systems ROS Status of ROS 10 or more systems reviewed and unremark able except as noted in history and below Musculoskeletal Reports: back pain and joint pain PFSH PFSH Medical History Osteoarthritis ?M19.90 - Unspecified osteoarthritis, unspecified site (ICD-10) Obesity ?E66.9 - Obesity, unspecified (ICD-10) Goiter ?E04.9 - Nontoxic goiter, unspecified (ICD-10) High cholesterol ?E78.00 - Pure hypercholesterolemia, unspecified (ICD-10) Hypertension ?I10 - Essential (primary) hypertension (ICD-10) Osteoporosis ?M81.0 - Age-related osteoporosis without current pathological fracture (ICD- 10) Lumbar spondylosis ?M47.816 - Spondylosis without myelopathy or radiculopathy, lumbar region (ICD-10) Chronic low back pain ?M54.50 - Low back pain, unspecified (ICD-10) ?G89.29 - Other chronic pain (ICD-10) Surgical History S/P total knee arthroplasty ?Z96.659 - Presence of unspecified artificial knee joint (ICD-10) H/O thumb surgery ?Z98.890 - Other specified postprocedural states (ICD-10) Meds Home Medications and Allergies Home Medications ?Medication ?Instructions ?Recorded ?Confirmed ?Type alendronate 70 mg tablet 70 mg PO QWEEK 07/27/23 08/06/24 History calcium 600 mg (as 1 tab PO BID 07/27/23 08/06/24 History carbonate)-vitamin D3 5 mcg (200 unit) tablet (Calcium 600 + D(3)) docusate sodium 100 mg capsule 100 mg PO .HS PRN constipation 07/27/23 08/06/24 History famotidine 20 mg tablet 20 mg PO .HS 07/27/23 08/06/24 History loratadine 10 mg tablet (Claritin) 10 mg PO DAILY 07/27/23 08/06/24 History meloxicam 15 mg tablet 15 mg PO DAILY 07/27/23 08/06/24 History metoprolol succinate 50 mg capsule 50 mg PO BID 07/27/23 08/06/24 History sprinkle, ext. release 24 hr multivitamin 1 tab PO DAILY 07/27/23 08/06/24 History omeprazole 20 mg capsule,delayed 20 mg PO DAILY 07/27/23 08/06/24 History release pravastatin 20 mg tablet 20 mg PO DAILY 07/27/23 08/06/24 History secukinumab 150 mg/mL subcutaneous 150 mg subcut .[id number] 07/27/23 08/06/24 History pen injector (Cosentyx Pen) sennosides 8.6 mg capsule (senna) 8.6 mg PO .HS PRN constipation 07/27/23 08/06/24 History baclofen 10 mg tablet 10 mg PO TID PRN muscle spasm #90 07/04/24 08/06/24 Rx tabs Allergies Allergy/AdvReac Type Severity Reaction Status Date / Time No Known Drug Allergies Allergy Verified 08/06/24 07:43 Exam Constitutional Documenting provider has reviewed patient's vital signs: yes Common normals: no apparent distress, oriented x3, healthy appearing, alert and well nourished General appearance: cooperative HENMT Common normals: normocephalic, hearing grossly normal bilaterally and moist oral mucous membranes Head and scalp: normocephalic Eye Common normals: PERRL Pupil: PERRL Neck & C-Spine Common normals: full ROM General: normal visual inspection Chest Common normals: inspection of chest normal Respiratory Common normals: normal respiratory effort, no retractions and no use of accessory muscles Back & Pelvis Lumbar spine/lower back: lumbar ROM normal and straight leg raise negative bilaterally; no pain with ROM Sacroiliac joints: SI joint(s) abnormal Other: bilateral positive ganesh(patricks), gaenslens, thigh thrust, compression test strength 5/5 in BLE sensation intact BLE Neuro Common normals: oriented x3, CN's II-XII intact bilaterally, moves all extremities, no focal motor deficits, no sensory deficits noted and deep tendon reflexes 2+ bilaterally Sensorium/orientation: alert Motor exam: strength 5/5 throughout and no movement abnormalities noted Psych Common normals: mental status grossly normal, thought process normal, cooperative, affect normal, speech normal and activity/motor behavior normal Speech: normal speech Thought process: normal thought process Results Additional Findings Additional findings: If on a controlled substance or opioids, I have checked an OARRS report on this patient and there are no aberrancies noted in the prescribing history.??If on a controlled substance or opioid a drug screen was completed and reviewed within the last year, and if there has not been a drug screen completed we ordered one today to monitor higher risk, state monitored pain medication use. As part of providing excellent, safe, comprehensive care, the following was completed at our patient's visit: 1. A medication reconciliation and review to ensure accurate knowledge of current/active medications, including asking our patients to inform us about any pymc-xzw-smgitep medications or herbal remedies/nutritional supplem ents/alternative remedies. 2. A review to specifically ensure our patients have had annual screening for screening for depression, screening for tobacco use, and screening for unhealthy alcohol use. For concerning screenings had a discussion with the patient, provided patient education, and recommended follow-up with primary care provider when appropriate. If patient noted with a risk of falling, they received education on strength, gait, and balance training to prevent future risk of falling. Portions of this note may have been carried over from the previous visit and updated as appropriate. Please note this office utilizes paper charting in addition to the electronic medical record. A list of current medications, vitals, and PMH is available there as the clinical staff outside of myself do not have access to [employer] charting during the clinic day operations. As part of providing quality comprehensive care the current medications, vitals, and PMH were reviewed in the paper chart. Assessment and Plan Assessment and Plan (1) Sacroiliac joint dysfunction of both sides: (2) Lumbar stenosis with neurogenic claudication: Plan bilateral SIJ injection under fluoroscopy continue HEP as tolerated continue current medications f/u after injection
== END 2024-08-15 09:21 | disposition home or self-care (01) ==
LOC: PM 09:20
PROVIDERS: PCP Family Medicine; Visit Provider Nurse Practitioner
DX: M53.3 Sacrococcygeal disorders, not elsewhere classified (principal); M48.062 Spinal stenosis, lumbar region with neurogenic claudication
CPT/HCPCS: G0463

== ENCOUNTER 2024-08-20 09:46 | Day surgery (SDC) | payer MEDICARE, OTHER, SELFPAY ==
--- OUTSIDE RECORDS SUMMARY | 2024-08-20 09:50 | XMS_ITS | CCD ---
Author Organization [facility] Care Team Providers Care Photonics Engineering Technologist Name Role Phone CURT ., DR SERNA Attending Unavailable CURT ., DR SERNA Consulting Unavailable CURT ., DR SERNA Primary Care Unavailable CURT ., DR SERNA Admitting Unavailable ZIEBER, DR PAULINO Liu Consulting Unavailable Curt CHUN, Daphne Calles Primary Care Provider [phone] DAVEY, IRIS L Attending Unavailable AMIE, FABIÁN [...] Unavailable Gieditis , Pamela Zheng Attending Unavailable Gibrookeitis , Andrius Zheng Attending Unavailable Shannan CHUN, Andrius Zheng Attending Unavailable Shannan CHUN, Andrius Zheng Attending Unavailable Gibrian CHUN, Pamela Zheng Attending Unavailable Allergies Allergy Classification Reported Allergen(s) Allergy Type Date of Onset Reaction(s) Facility (1 source) Leucine Drug Allergy [facility] Repository (1 source) Mis-Other; Translations: [Mis-Other] Propensity to adverse reactions (disorder) [facility] Repository (3 sources) nickel sulfate Drug Allergy [...] bone density and structure, unspecified site; Translations: [[facility] D/O BONE DEN STRUCT UNS [...] stim IFN-g Ql (Bld) [Interp] Negative Negative [facility] Comment on above: No response to M tub erculosis antigens detected. Infection with M tuberculosis is unlikely, but high risk individuals should be considered for additional testing (ATS/IDSA/CDC Clinical Practice Guidelines, 2017). The reference range is an Antigen minus Nil result of <0.35 IU/mL. Chemiluminescence immunoassay methodology QUANTIFERON TB GOLD INCUBATION Incubation performed. [facility] No Panel Informationon 07-28 Performed at: [address] [place] [address] [id number] Game Designer: Preet Porter PhD, Phone: [phone] [facility]IFERON-TB GOLD PLUSon 0 07-28-2024 Gamma interferon background IA Qn (Bld) 0.04 IU/mL [facility] M. tuberculosis stim IFN-g by CD4+ CD8+ T-cells corrected for background Qn (Bld) 0.05 IU[facility] IFN-g by CD4+ T-cells corrected for background Qn (Bld) 0.05 [IU]/mL IU/mL [facility] Mitogen stimulated gamma interferon corrected for background Qn (Bld) >10.00 IU/mL [facility] are Service comment (Unsp spec) [Interp] Comment [facility] Comment on above: QuantiFERON-TB Gold Plus is [...] : DR DAPHNE ELIAS . Admission #: [id number] Family : Order #: [id number] CLICK HERE TO VIEW EXAM RADIOLOGY REPORT [...] on 10/13/2022 at 13:51 Normal [facility] XR DEXA BONE DENSITYon 10-13 [...] by: PAULINO MENDOZA Date: 2022-10-13 11:38 Normal [facility] Encounters Encounter Date Encounter Type Care Provider Facility Start: 08-06-2024 End: 08-06-2024 ambulatory Pamela Campbell MD Facility:[facility] Start: 07-30-2024 End: 07-30-2024 ambulatory Pamela Campbell MD Facility:[facility] Start: 07-26-2024 End: 07-26-2024 Bamboo flowsheet Karla A Felter SHAREPOINT WEB DEVELOPER-DIRECTOR SOCIAL Work Phone: [facility] Start: 07-26-2024 End: 07-26-2024 Bamboo flowsheet Karla A Felter [employer] WE[employer] DEVELOPER-DIRECTOR SOCIAL Work Phone: [facility] Start: 07-26-2024 End: 07-28-2024 Orders Only Karla A Felter [employer] WE[employer] DEVELOPER-DIRECTOR SOCIAL Work Phone: [facility] External Department Unsolicited Start: 07-26-2024 End: 07-26-2024 Office outpatient visit 15 minutes Karla A Felter [employer] WE[employer] DEVELOPER-DIRECTOR SOCIAL Work Phone: [facility] Comment on above: Psoriasis vulgaris ( [facility]) Start: 07-26-2024 End: 07-26-2024 ambulatory KARLA A FELTER Not Available Start: 12-05-2023 End: 12-05-2023 ambulatory Pamela Campbell MD Facility:[facility] Start: 11-03-2023 End: 11-03-2023 ambulatory IRIS L DAVEY Not Available Start: 10-31-2023 End: 10-31-2023 ambulatory Pamela Campbell MD Facility:[facility] Start: 10-26-2023 End: 10-26-2023 ambulatory IRIS [...] 10-03-2023 End: 10-03-2023 ambulatory Pamela Campbell MD Facility:[facility] Start: 09-29-2023 End: 09-29-2023 ambulatory IRIS L DAVEY Not Available Start: 09-27-2023 End: 09-27-2023 ambulatory IRIS L DAVEY Not Available Start: 09-01-2023 Bamboo flowsheet Iris L Davey PT Work Phone: [facility] Start: 09-01-2023 Bamboo flowsheet Iris L Davey PT Work Phone: [facility] Start: 09-01-2023 End: 09-01-2023 ambulatory Iris L Davey PT Work Phone: [facility] Comment on above: Lumbar spondylosis ( Primary Dx); Right hip pain; Antalgic gait Start: 08-30-2023 Bamboo flowsheet Iris L Davey PT Work Phone: [facility] Start: 08-30-2023 Bamboo flowsheet Iris L Davey PT Work Phone: [facility] Start: 08-30-2023 End: 08-30-2023 ambulatory [...] Start: 07-26-2024 QUANTIFERON-TB GOLD PLUS Karla Tyler [employer] WE[employer] DEVELOPER-DIRECTOR SOCIAL Work Phone: Start: 07-26-2024 Tb cell mediated ant ign respnse gamma interferon Karla Tyler [employer] DEVELOPER-DIRECTOR SOCIAL Work Phone: Plan of Treatment Date Care Activity Detail Author Start: 07-29-2025 End: 07-29-2025 Patient encounter procedure 07/29/2025 1:10 PM EST Office Visit [facility] [address] [place] [id number] Karla Tyler, [employer] WE[employer] DEVELOPER-DIRECTOR SOCIAL [address] [place] [address] [facility] Start: 07-26-2024 End: 07-26-2025 QUANTIFERON TB GOLD QUANTIFERON TB GOLD Lab Routine Psoriasis vulgaris ([facility]) Expected: 07/26/2024 (Approximate), Expires: 07/26/2025 [facility] Work Phone: Comment on above: Expected: 07/26/2024 (Approximate), Expires: 07/26/2025 Start: 07-26-2024 End: 07-26-2024 [facility] Comment on above: Arrived Start: 03-18-2024 Influenza vaccination Influenza Vacc ine (#1) [facility] Start: 10-13-2023 End: 10-13-2023 ambulatory 10/13/2023 1:00 PM EDT Treatment [facility] [address] [place] [phone] Jolynn Iris L, PT [address] [place] [address] [facility] Start: 10-11-2023 End: 10-11-2023 ambulatory 10/11/2023 1:00 PM EDT [facility] [address] [place] [address] Davey, Iris L, PT [address] [place] [address] [facility] Start: 10-06-2023 End: 10-06-2023 ambulatory 10/06/2023 1:00 PM EDT Treatment [facility] [address] [place] [phone] Jolynn Iris L, PT [address] [place] [address] [facility] Start: 10-04-2023 End: 10-04-2023 ambulatory 10/04/2023 1:00 PM EDT Treatment [facility] [address] [place] [address] Davey Iris L, PT [address] [place] [address] [facility] Start: 09-29-2023 End: 09-29-2023 ambulatory 09/29/2023 1:00 PM EDT Treatment [facility] [address] [place] [address] Davey, Iris L, PT [address] [place] [address] [facility] Start: 09-27-2023 End: 09-27-2023 ambulatory 09/27/2023 2:00 PM EDT Treatment [facility] [address] [place] [address] Davey, Iris L, PT [address] [place] [address] [facility] Start: 09-01-2023 End: 09-01-2023 ambulatory [facility] Comment on above: Arrived Start: 08-30-2023 End: 08-30-2023 ambulatory [facility] Comment on above: Arrived Start: 08-25-2023 End: 08-25-2023 ambulatory 08/25/2023 1:00 PM EST Treatment [facility] [address] [place] [address] DaveyIris L, PT [address] [place] [address] [facility] Start: 08-23-2023 End: 08-23-2023 ambulatory 08/23/2023 1:00 PM EST Treatment [facility] [address] [place] [address] Jolynn Iris Singleton, PT [address] [place] [address] [facility] Start: 08-18-2023 End: 08-18-2023 ambulatory 08/18/2023 1:00 PM EST Treatment [facility] [address] [place] [address] Iris Davey, PT [address] [place] [address] [facility] Comment on above: Arrived Start: 1993 Screening for malign ant neoplasm of breast Mammogram [facility] Start: 1953 Screening for malign ant neoplasm of colon [facility] Immunizations Immunization Date Immunization Notes Care Provider Fa [facility] 04-23-2024 influenza virus vacc ine, unspecified formulation Karla Tyler SH[employer] WE[employer] DEVELOPER-DIRECTOR SOCIAL Work Phone: [facility] 04-22-2022 SARS-CoV-2, Unspecified Daisy Davey PT Work Phone: [facility] Payers Date Payer Category Payer Private Health Insurance [employer] [id number] 2021 Unknown [id number]. [id number] 2018 Medicare [id number] [id number]. [id number] 1959 Medicare [id number] 1959 Unknown [id number] 1953 Unknown [id number] 2.16.840.1.849951.3.579.2. 593 1953 Unknown [id number] 2.16.840.1.667076.3.579.2. 1259 1953 Unknown [id number] 2.16.840.1.942533.3.579.2. 1259 1953 Unknown [id number] 2.16.840.1.633926.3.579.2. 1259 1953 Unknown [id number] 2.16.840.1.114421.3.579.2. 1259 1953 Unknown [id number] 2.16.840.1.691662.3.579.2. 1259 1953 Unknown [id number] 2.16.840.1.826187.3.579.2. 1259 1953 Unknown [id number] 2.16.840.1.527031.3.579.2. 1259 1953 Unknown [id number] 2.16.840.1.683194.3.579.2. 1259 1953 Unknown [id number] 2.16.840.1.805520.3.579.2. 1259 1953 Unknown [id number] 2.16.840.1.120861.3.579.2. 1259 1953 Unknown [id number] 2.16.840.1.195509.3.579.2. 1259 1953 Unknown [id number] 2.16.840.1.210029.3.579.2. 1259 1953 Unknown [id number] 2.16.840.1.023573.3.579.2. 1259 1953 Unknown [id number] 2.16.840.1.244920.3.579.2. 1259 1953 Unknown [id number] 2.16.840.1.727083.3.579.2. 1259 1953 Unknown [id number] 2.16.840.1.050416.3.579.2. 1259 1953 Unknown [id number] 2.16.840.1.262816.3.579.2. 1259 1953 Unknown [id number] 2.16.840.1.491215.3.579.2. 1259 1953 Unknown [id number] 2.16.840.1.373077.3.579.2. 9 1953 Unknown [id number] 2.16.840.1.646993.3.579.2. 196 1953 Unknown [id number] 2.16.840.1.140629.3.579.2. 196 1953 Unknown [id number] 2.16.840.1.517850.3.579.2. 196 1953 Unknown [id number] 2.16.840.1.853873.3.579.2. 196 1953 Unknown [id number] 2.16.840.1.977134.3.579.2. 196 Social History Date Type Detail Facility [...] of Present illness Narrative 07-26-2024 Karla Tyler, SARAH-DIRECTOR SOCIAL - 07/26/2024 1:20 PM EST Note Date [...] 0/10. I feel pretty good today. Hasn't [id number] much activity yet this morning. Overall progress: Patient reports ~90% overall improvement in hip pain and mobility since SOC. Back pain is what is limiting her functional mobility at this time. Uses [facility] for long distance community negotiation. Will be [...] her functional mobility at this time. Uses [facility] for long distance community negotiation. Will be [...] ROM and strengthening. documented in this encounter [facility] Evaluation note Note Date & Type Note Facility Evaluation note Diagnosis Lumbar spondylosis- Primary Lumbosacral spondylosis without myelopathy Right hip pain Pain in joint, pelvic region and thigh Antalgic gait documented in this encounter [facility] Evaluation note Note Date & Type Note Facility Evaluation note Diagnosis Lumbar spondylosis- Primary Lumbosacral spondylosis without myelopathy Right hip pain Pain in joint, pelvic region and thigh Antalgic gait documented in this encounter [facility] Evaluation note Note Date & Type Note Facility Evaluation note Diagnosis Lumbar spondylosis- Primary Lumbosacral spondylosis without myelopathy Right hip pain Pain in joint, pelvic region and thigh Antalgic gait documented in this encounter [facility] Evaluation note Note Date & Type Note Facility Evaluation note Diagnosis Lumbar spondylosis- Primary Lumbosacral spondylosis without myelopathy Right hip pain Pain in joint, pelvic region and thigh Antalgic gait documented in this encounter [facility] Evaluation note Note Date & Type Note Facility Evaluation note Diagnosis Psoriasis vulgaris (CMS/HCC) Other psoriasis documented in this encounter [facility] Summary Purpose Family History No Family History Records FoundNo Family History Records FoundNo Family History Records Found Advance Directives No Advanced Directives Records FoundNo Advanced Directives Records FoundNo Advanced Directives Records Found Additional Source Comments INFORMATION SOURCE (unrecogn ized section and content) DATE CREATED AUTHOR 10/22/2022 [facility] DATE CREATED AUTHOR AUTHOR'S ORGANIZ ATION 07/31/2024 [facility] EPIC DATE CREATED AUTHOR AUTHOR'S ORGANIZ ATION 08/14/2024 [facility] Care Teams (unrecognized sec tion and content) Photonics Engineering Technologist Relationship Specialty Start Date End Date Daphne Elias MD [address] [facility] [place] [address] PCP - General Family Medicine 04/25/23 Photonics Engineering Technologist Relationship Specialty Start Date End Date Daphne Elias MD [address] [facility] [place] [address] PCP - General Family Medicine 04/25/23 Photonics Engineering Technologist Relationship Specialty Start Date End Date Daphne Elias MD [address] [facility] [place] [address] PCP - General Family Medicine 04/25/23 Photonics Engineering Technologist Relationship Specialty Start Date End Date Daphne Elias MD [address] [facility] [place] [address] PCP - General Family Medicine 04/25/23 Photonics Engineering Technologist Relationship Specialty Start Date End Date Daphne Elias MD [address] [facility] [place] [address] PCP - General Family Medicine 04/25/23 Photonics Engineering Technologist Relationship Specialty Start Date End Date Daphne Elias MD [address] [facility] [place] [address] PCP - General Family Medicine 04/25/23 Photonics Engineering Technologist Relationship Specialty Start Date End Date Daphne Elias MD [address] [place] [address] PCP - General Family Medicine 04/25/23 Photonics Engineering Technologist Relationship Specialty Start Date End Date Daphne Elias MD [address] [place] [address] PCP - General Family Medicine 04/25/23 Photonics Engineering Technologist Relationship Specialty Start Date End Date Daphne Elias MD [address] [place] [address] PCP - General Family Medicine 04/25/23 Photonics Engineering Technologist Relationship Specialty Start Date End Date Daphne Elias MD [address] [place] [address] PCP - General Family Medicine 04/25/23 Reason for Visit (unrecogniz ed section and content) Specialty Diagnoses / Procedures Referred By Contac t Referred To Contact Physical Therapy Diagnoses Spondylosis without myelopathy or radiculopathy, lumbar region Procedures MS PHYSICAL THERAPY EVALUATION LOW COMPLEX 20 MINS Fabián Graham, HEATER TENDER [address] [place] [address] Iris Davey, PT [address] [facility] [address] [place] [address] Referral ID Status Reason Start Date Expiration Date V isits Requested Visits Authorized [id number] Authorized 07/27/2023 01/23/2024 30 30 Reason Comments [...] BE BASED ON THE PRIMARY CLINICAL RECORDS. [employer] [facility]. provides no warranty or guarantee of the accuracy or completeness of information in this document.
[2024-08-20 10:10] VITALS: BP 137/77; PULSE 56; TEMP 36.7; O2SAT 100
[2024-08-20 11:00] VITALS: BP 164/74; BP 168/77; PULSE 54; O2SAT 100; O2SAT 99
--- NOTE | 2024-08-20 11:01 | W.PM.PROCNOT ---
Date of procedure: 08/20/24 Pre-op diagnosis: Pain due to bilateral sacroiliitis Post-op diagnosis: same as pre-op Procedure: Procedure: Bilateral sacroiliac joint injection Medications: Bupivacaine 0.25% 3cc, depomedrol 40mg x2 After informed consent was obtained, the patient was brought to the medical procedure unit and placed in the prone position, when a timeout was completed verifying correct patient, procedure, site, positioning, implant, and/or special equipment.? The skin overlying the area was prepped and draped in standard sterile fashion using alcohol.? A 25-gauge needle was inserted towards the left sacroiliac joint under direct fluoroscopic imaging.? Needle tip was advanced until the joint was encountered.? We instilled a total of 2 mL of solution.? The same procedure was then completed on the right side.? Postoperatively needles were removed.? The patient tolerated the procedure well without complication.? The patient reported reduction in pain symptoms postoperatively. Anesthesia: Local Surgeon: Pamela Campbell Pathology: none sent Condition: stable Disposition: no change
[2024-08-20] MEDS: IOHEXOL 240 MG/ML - 10 ML VIAL 12 MG INJ (11:02)
[2024-08-20] MEDS: LIDOCAINE HCL 2% 400 MG/20 ML MDV INJ (11:02)
[2024-08-20] MEDS: BUPIVACAINE HCL 0.25% PF 25 MG/10 ML VIAL 4 ML INJ (11:02)
[2024-08-20] MEDS: METHYLPREDNISOLONE ACETATE 40 MG/ML VIAL 80 MG INJ (11:03)
== END 2024-08-20 11:06 | disposition home or self-care (01) ==
LOC: SURGOUT 09:47
PROVIDERS: PCP Family Medicine; Visit Provider Anesthesiology
DX: M46.1 Sacroiliitis, not elsewhere classified (principal)
CPT/HCPCS: 27096; J0665; J1010; Q9966

== ENCOUNTER 2024-08-29 13:45 | Outpatient (OUT) | payer MEDICARE, OTHER, SELFPAY ==
--- NOTE | 2024-08-29 14:29 | PM.CN ---
Consult Note: HPI Data of Consult Patient: known to practice within the last 3 years Requesting Physician: Lynn Graham NP Primary Care Provider: Julio Elias MD Consult Narrative Reason for consult: f/u Narrative: Lakesha Cardona a pleasant 69 year old with a hx of longstanding low back and SIJ pain presents for evaluation. recent lumbar MRI consistent with lumbar spondylosis, DDD, and multilevel moderate to severe stenosis. pain today 0/10, increasing to 2/10 in bilateral SIJ with standing and walking. recent bilateral L4/5 TFESI and bilateral SIJ injection providing >80% improvement in pain and functional ability ongoing. DELMIS 11%. continues to utilizing baclofen and mobic with relief without side effects, engaged in HEP ongoing. cc:: CC: Lynn Graham NP Review of Systems ROS Status of ROS 10 or more systems reviewed and unremarkable except as noted in history and below Musculoskeletal Denies: back pain or joint pain PFSH PFSH Medical History Osteoarthritis ?M19.90 - Unspecified osteoarthritis, unspecified site (ICD-10) Obesity ?E66.9 - Obesity, unspecified (ICD-10) Goiter ?E04.9 - Nontoxic goiter, unspecified (ICD-10) High cholesterol ?E78.00 - Pure hypercholesterolemia, unspecified (ICD-10) Hypertension ?I10 - Essential (primary) hypertension (ICD-10) Osteoporosis ?M81.0 - Age-related osteoporosis without current pathological fracture (ICD-10) Lumbar spondylosis ?M47.816 - Spondylosis without myelopathy or radiculopathy, lumbar region (ICD-10) Chronic low back pain ?M54.50 - Low back pain, unspecified (ICD-10) ?G89.29 - Other chronic pain (ICD-10) Surgical History S/P total knee arthroplasty ?Z96.659 - Presence of unspecified artificial knee joint (ICD-10) H/O thumb surgery ?Z98.890 - Other specified postprocedural states (ICD-10) Meds Home Medications and Allergies Home Medications ?Medication ?Instructions ?Recorded ?Confirmed ?Type alendronate 70 mg tablet 70 mg PO QWEEK 07/27/23 08/20/24 History calcium 600 mg (as 1 tab PO BID 07/27/23 08/20/24 History carbonate)-vitamin D3 5 mcg (200 unit) tablet (Calcium 600 + D(3)) docusate sodium 100 mg capsule 100 mg PO .HS PRN constipation 07/27/23 08/20/24 History famotidine 20 mg tablet 20 mg PO .HS 07/27/23 08/20/24 History loratadine 10 mg tablet (Claritin) 10 mg PO DAILY 07/27/23 08/20/24 History meloxicam 15 mg tablet 15 mg PO DAILY 07/27/23 08/20/24 History metoprolol succinate 50 mg capsule 50 mg PO BID 07/27/23 08/20/24 History sprinkle, ext. release 24 hr multivitamin 1 tab PO DAILY 07/27/23 08/20/24 History omeprazole 20 mg capsule,delayed 20 mg PO DAILY 07/27/23 08/20/24 History release pravastatin 20 mg tablet 20 mg PO DAILY 07/27/23 08/20/24 History secukinumab 150 mg/mL subcutaneous 150 mg subcut .B10IFAT 07/27/23 08/20/24 History pen injector (Cosentyx Pen) sennosides 8.6 mg capsule (senna) 8.6 mg PO .HS PRN constipation 07/27/23 08/20/24 History baclofen 10 mg tablet 10 mg PO TID PRN muscle spasm #90 07/04/24 08/20/24 Rx tabs Allergies Allergy/AdvReac Type Severity Reaction Status Date / Time No Known Drug Allergies Allergy Verified 08/20/24 10:11 Exam Constitutional Documenting provider has reviewed patient's vital signs: yes Common normals: no apparent distress, oriented x3, healthy appearing, alert and well nourished General appearance: cooperative [facility] Common normals: normocephalic, hearing grossly normal bilaterally and moist oral mucous membranes Head and scalp: normocephalic Eye Common normals: PERRL Pupil: PERRL Neck & C-Spine Common normals: full ROM General: normal visual inspection Chest Common normals: inspection of chest normal Respiratory Common normals: normal respiratory effort, no retractions and no use of accessory muscles Back & Pelvis Lumbar spine/lower back: lumbar ROM normal and straight leg raise negative bilaterally; no pain with ROM Sacroiliac joints: SI joints normal Other: bilateral negative ganesh(patricks), gaenslens, thigh thrust, compression test strength 5/5 in BLE sensation intact BLE Neuro Common normals: oriented x3, CN's II-XII intact bilaterally, moves all extremities, no focal motor deficits, no sensory deficits noted and deep tendon reflexes 2+ bilaterally Sensorium/orientation: alert Motor exam: strength 5/5 throughout and no movement abnormalities noted Psych Common normals: mental status grossly normal, thought process normal, cooperative, affect normal, speech normal and activity/motor behavior normal Speech: normal speech Thought process: normal thought process Results Additional Findings Additional findings: If on a controlled substance or opioids, I have checked an [place] report on this patient and there are no aberrancies noted in the prescribing history.??If on a controlled substance or opioid a drug screen was completed and reviewed within the last year, and if there has not been a drug screen completed we ordered one today to monitor higher risk, state monitored pain medication use. As part of providing excellent, safe, comprehensive care, the following was completed at our patient's visit: 1. A medication reconciliation and review to ensure accurate knowledge of current/active medications, including asking our patients to inform us about any [id number] medications or herbal remedies/nutritional supplements/alternative remedies. 2. A review to specifically ensure our patients have had annual screening for screening for depression, screening for tobacco use, and screening for unhealthy alcohol use. For concerning screenings had a discussion with the patient, provided patient education, and recommended follow-up with primary care provider when appropriate. If patient noted with a risk of falling, they received education on strength, gait, and balance training to prevent future risk of falling. Portions of this note may have been carried over from the previous visit and updated as appropriate. Please note this office utilizes paper charting in addition to the electronic medical record. A list of current medications, vitals, and PMH is available there as the clinical staff outside of myself do not have access to [employer] charting during the clinic day operations. As part of providing quality comprehensive care the current medications, vitals, and PMH were reviewed in the paper chart. Assessment and Plan Assessment and Plan (1) Sacroiliac joint dysfunction of both sides: (2) Lumbar stenosis with neurogenic claudication: Plan >80% improvement ongoing from interventional therapy continue current medications continue HEP as tolerated f/u PRN
== END 2024-08-29 13:46 | disposition home or self-care (01) ==
LOC: PM 13:46
PROVIDERS: PCP Family Medicine; Visit Provider Nurse Practitioner
DX: M53.3 Sacrococcygeal disorders, not elsewhere classified (principal); M48.062 Spinal stenosis, lumbar region with neurogenic claudication
CPT/HCPCS: G0463

== ENCOUNTER 2024-10-17 13:49 | Outpatient (OUT) | payer MEDICARE, OTHER, SELFPAY ==
--- NOTE | 2024-10-17 13:52 | MM_ITS ---
Patient Name: VENESSA PUGH MR#: [id number] : 1955 Exam Date: 10/17/2024 Ordering Doctor: DR DAPHNE GRIFFITH . RADIOLOGY REPORT PROCEDURE: MM TOMOSYNTHESIS SCREENING BI COMPARISON: MM TOMOSYNTHESIS SCREENING BI, 10/17/2023. MG MAMM SCREEN 3D REGINO CAD, 10/13/2022. MG MAMM SCREEN 3D REGINO CAD, 09/09/2021. MG MAMM REGINO SCRN W CAD DIG, 06/18/2013. INDICATIONS: Screening Calculator Name NCI Breast Cancer Risk Assessment Tool 5 Year Breast Cancer Risk 2.90% Lifetime Breast Cancer Risk 7.90% Personal Breast Cancer No Personal Ovarian Cancer No Treatments None Family Cancers Father with nonhotchkins cancer at age 60; Sister with basil cell carcinoma cancer at age 52. LOCATION: [facility] BREAST COMPOSITION: There are scattered areas of fibroglandular density. FINDINGS: DIAGNOSTIC CATEGORY 1--NEGATIVE. RIGHT BREAST: No significant suspicious finding. LEFT BREAST: No significant suspicious finding. RECOMMENDATIONS: ROUTINE MAMMOGRAM AND CLINICAL EVALUATION IN 12 MONTHS. PLEASE NOTE: A NORMAL MAMMOGRAM DOES NOT EXCLUDE THE POSSIBILITY OF BREAST CANCER. A CLINICALLY SUSPICIOUS PALPABLE LUMP SHOULD BE BIOPSIED. Dictated by: Hernan Bull DO on 10/17/2024 at 16:04 Approved by: Hernan Bull DO on 10/17/2024 at 16:08
== END 2024-10-17 13:50 | disposition home or self-care (01) ==
LOC: MAMMO 13:49
PROVIDERS: PCP Family Medicine; Visit Provider Family Medicine
DX: Z12.31 Encounter for screening mammogram for malignant neoplasm of breast (principal); Z80.7 Family history of other malignant neoplasms of lymphoid, hematopoietic and related tissues; Z80.8 Family history of malignant neoplasm of other organs or systems
CPT/HCPCS: 77063; 77067

== ENCOUNTER 2024-10-22 10:37 | Outpatient (OUT) | payer MEDICARE, OTHER, SELFPAY ==
--- OUTSIDE RECORDS SUMMARY | 2024-10-22 10:58 | XMS_ITS | CCD ---
Author Organization [facility] Care Team Providers Care Events Assistant Name Role Phone CURT ., DR SERNA Attending Unavailable CURT ., DR SERNA Consulting Unavailable CURT ., DR SERNA Primary Care Unavailable CURT ., DR SERNA Admitting Unavailable ZIEBER, DR PAULINO Liu Consulting Unavailable Curt CHUN, Daphne Calles Primary Care Provider [phone] DAVEY, IRIS L Attending Unavailable AMIE, FABIÁN [...] Unavailable Gibrian CHUN, Pamela Zheng Attending Unavailable Gibrian CHUN, Pamela Zheng Attending Unavailable Allergies Allergy Classification Reported Allergen(s) Allergy Type Date of Onset Reaction(s) Facility (1 source) Leucine Drug Allergy [facility] Repository (1 source) Misc-Other; Translations: [Mis-Other] Propensity to adverse reactions (disorder) [facility] Repository (3 sources) nickel sulfate Drug Allergy Unknown [facility] Medications Current Medications Medication [...] stim IFN-g Ql (Bld) [Interp] Negative Negative [facility] Comment on above: No response to M tub erculosis antigens detected. Infection with M tuberculosis is unlikely, but high risk individuals should be considered for additional testing (ATS/IDSA/CDC Clinical Practice Guidelines, 2017). The reference range is an Antigen minus Nil result of <0.35 IU/mL. Chemiluminescence immunoassay methodology QUANTIFERON TB GOLD INCUBATION Incubation performed. [facility] No Panel Informationon 07-28 Performed at: [address] [place] [id number] Basic Acoustic Analyst: Preet Porter PhD, Phone: [phone] [facility] QUANTIFERON-TB GOLD PLUSon 0 07-28-2024 Gamma interferon background IA Qn (Bld) 0.04 IU/mL [facility] M. tuberculosis stim IFN-g by CD4+ CD8+ T-cells corrected for background Qn (Bld) 0.05 IU/mL [facility]. [facility] stim IFN-g by CD4+ T-cells corrected for background Qn (Bld) 0.05 [IU]/mL IU/mL [facility] Mitogen stimulated gamma interferon corrected for background Qn (Bld) >10.00 IU/mL [facility] are Service comment (Unsp spec) [Interp] Comment [facility] Comment on above: QuantiFERON-TB Gold Plus [...] : DR DAPHNE ELIAS . Admission #: [id number] Family : Order #: [id number] CLICK HERE TO VIEW EXAM RADIOLOGY REPORT [...] carcinoma cancer at age 50. LOCATION: [facility] BREAST COMPOSITION: Scattered areas fibroglandular [...] M.D. on 10/13/2022 at 13:51 Normal [facility] XR DEXA BONE DENSITYon 10-13 XR [...] by: PAULINO MENDOZA Date: 2022-10-13 11:38 Normal [facility] Encounters Encounter Date Encounter Type Care Provider Facility Start: 08-20-2024 End: 08-20-2024 ambulatory Pamela Campbell MD Facility:[facility] Start: 08-06-2024 End: 08-06-2024 ambulatory Pamela Campbell MD Facility:[facility] Start: 07-30-2024 End: 07-30-2024 ambulatory Pamela Campbell MD Facility:[facility] Start: 07-26-2024 End: 07-26-2024 Bamboo flowsheet Karla A Felter MICROCOMPUTER TECHNICIAN-STRAW BOSS Work Phone: [facility] Start: 07-26-2024 End: 07-26-2024 Bamboo flowsheet Karla A Felter MICROCOMPUTER TECHNICIAN-STRAW [employer]OSS Work Phone: [facility] Start: 07-26-2024 End: 07-28-2024 Orders Only Karla A Felter MICROCOMPUTER TECHNICIAN-STRAW BOSS Work Phone: [facility] Unsolicited Start: 07-26-2024 End: 07-26-2024 Office outpatient visit 15 minutes Karla A Felter MICROCOMPUTER TECHNICIAN-STRAW BOSS Work Phone: [facility] Comment on above: Psoriasis vulgaris ( CMS/HCC) Start: 07-26-2024 End: 07-26-2024 ambulatory KARLA TYLER Not Available Start: 12-05-2023 End: 12-05-2023 ambulatory Pamela Campbell MD Facility: [facility] Start: 11-03-2023 End: 11-03-2023 ambulatory IRIS L DAVEY Not Available Start: 10-31-2023 End: 10-31-2023 ambulatory Pamela Campbell MD Facility: [facility] Start: 10-26-2023 End: 10-26-2023 ambulatory IRIS L [...] 10-03-2023 End: 10-03-2023 ambulatory Pamela Campbell MD Facility: [facility] Start: 09-29-2023 End: 09-29-2023 ambulatory IRIS L DAEVY Not Available Start: 09-27-2023 End: 09-27-2023 ambulatory IRIS L DAVEY Not Available Start: 09-01-2023 Bamboo flowsheet Iris L Davey PT Work Phone: [facility] Start: 09-01-2023 Bamboo flowsheet Iris L Davey PT Work Phone: [facility] Start: 09-01-2023 End: 09-01-2023 ambulatory Iris L Davey PT Work Phone: [facility] Comment on above: Lumbar spondylosis ( Primary Dx); Right hip pain; Antalgic gait Start: 08-30-2023 Bamboo flowsheet Iris L Davey PT Work Phone: [facility] Start: 08-30-2023 Bamboo flowsheet Iris L Davey PT Work Phone: [facility] Start: 08-30-2023 End: 08-30-2023 ambulatory Iris L Davey PT Work Phone: [facility] Comment on above: Lumbar spondylosis ( Primary Dx); Right hip pain; Antalgic gait Start: 08-25-2023 End: 08-25-2023 ambulatory Iris L Davey PT Work Phone: [facility] Comment on above: Lumbar spondylosis ( Primary Dx); Right hip pain; Antalgic gait Start: 08-23-2023 End: 08-23-2023 ambulatory IRIS L DAVEY Not Available Start: 08-19-2023 Chart abstracting Iris L Davey PT Work Phone: [facility] Start: 08-18-2023 Bamboo flowsheet Iris L Davey PT Work Phone: [facility] Start: 08-18-2023 Bamboo flowsheet Iris L Davey PT Work Phone: [facility] Start: 08-18-2023 End: 08-18-2023 ambulatory Iris L Davey PT Work Phone: [facility] Comment on above: Lumbar spondylosis ( [...] Start: 07-26-2024 QUANTIFERON-TB GOLD PLUS Karla Tyler APRN-STRAW BOSS Work Phone: Start: 07-26-2024 Tb cell mediated ant ign respnse gamma interferon Karla Tyler MICROCOMPUTER TECHNICIAN-STRAW BOSS Work Phone: Plan of Treatment Date Care Activity Detail Author Start: 07-29-2025 End: 07-29-2025 Patient encounter procedure 07/29/2025 1:10 PM EST Office Visit [facility] [address] [place] [phone] Karla Tyler, MICROCOMPUTER TECHNICIAN-STRAW BOSS [address] [place] [address] [facility] Start: 07-26-2024 End: 07-26-2025 QUANTIFERON TB GOLD QUANTIFERON TB GOLD Lab Routine Psoriasis vulgaris (CMS/HCC) Expected: 07/26/2024 (Approximate), Expires: 07/26/2025 [facility] Work Phone: Comment on above: Expected: 07/26/2024 (Approximate), Expires: 07/26/2025 Start: 07-26-2024 End: 07-26-2024 Patient encounter procedure [facility] Comment on above: Arrived Start: 03-18-2024 Influenza vaccination Influenza Vacc ine (#1) [facility] Start: 10-13-2023 End: 10-13-2023 ambulatory 10/13/2023 1:00 PM EDT Treatment [facility] [address] [place] [phone] Iris Davey, PT [address] [place] [address] [facility] Start: 10-11-2023 End: 10-11-2023 ambulatory 10/11/2023 1:00 PM EDT Treatment [facility] [address] [place] [address] Iris Davey L, PT [address] [place] [phone] [facility] Start: 10-06-2023 End: 10-06-2023 ambulatory 10/06/2023 1:00 PM EDT Treatment [facility] [address] [place] [address] Iris Davey L, PT [address] [place] [address] [facility] Start: 10-04-2023 End: 10-04-2023 ambulatory 10/04/2023 1:00 PM EDT Treatment [facility] [address] [place] [address] Davey, Iris L, PT [address] [place] [address] [facility] Start: 09-29-2023 End: 09-29-2023 ambulatory 09/29/2023 1:00 PM EDT Treatment [facility] [address] [place] [address] Jolynn Iris L, PT [address] [place] [address] [facility] Start: 09-27-2023 End: 09-27-2023 ambulatory 09/27/2023 2:00 PM EDT Treatment [facility] [address] [place] [address] Jolynn Iris L, PT [address] [place] [address] [facility] Start: 09-01-2023 End: 09-01-2023 ambulatory [facility] Comment on above: Arrived Start: 08-30-2023 End: 08-30-2023 ambulatory [facility] Comment on above: Arrived Start: 08-25-2023 End: 08-25-2023 ambulatory 08/25/2023 1:00 PM EST Treatment [facility] [address] [place] [address] Iris Davey, PT [address] [place] [phone] [facility] Start: 08-23-2023 End: 08-23-2023 ambulatory 08/23/2023 1:00 PM EST Treatment [facility] [address] [place] [address] Iris Davey, PT [address] [place] [address] [facility] Start: 08-18-2023 End: 08-18-2023 ambulatory 08/18/2023 1:00 PM EST Treatment [facility] [address] [place] [address] Iris Davey, PT [address] [place] [address] Arrived [facility] Comment on above: Arrived Start: 1993 Screening for malign ant neoplasm of breast Mammogram [facility] Start: 1953 Screening for malign ant neoplasm of colon [facility] Immunizations Immunization Date Immunization Notes Care Provider Fa [facility] 04-23-2024 influenza virus vacc ine, unspecified formulation Karla Tyler MICROCOMPUTER TECHNICIAN-STRAW BOSS Work Phone: [facility] 04-22-2022 SARS-CoV-2, Unspecified Daisy Davey PT Work Phone: [facility] Payers Date Payer Category Payer Private Health Insurance [employer] [id number] 2021 Unknown [id number]. [id number] 2018 Medicare [id number] [id number]. [id number] 1959 Medicare [id number] 1959 Unknown [id number] 1953 Unknown [id number] 2.16.840.1.457576.3.579.2. 593 1953 Unknown [id number] 2.16.840.1.033147.3.579.2. 1259 1953 Unknown [id number] 2.16.840.1.215716.3.579.2. 1259 1953 Unknown [id number] 2.16.840.1.827946.3.579.2. 1259 1953 Unknown [id number] 2.16.840.1.601048.3.579.2. 1259 1953 Unknown [id number] 2.16.840.1.998515.3.579.2. 1259 1953 Unknown [id number] 2.16.840.1.247305.3.579.2. 1259 1953 Unknown [id number] 2.16.840.1.385914.3.579.2. 1259 1953 Unknown [id number] 2.16.840.1.170728.3.579.2. 1259 1953 Unknown [id number] 2.16.840.1.370992.3.579.2. 1259 1953 Unknown [id number] 2.16.840.1.625743.3.579.2. 1259 1953 Unknown [id number] 2.16.840.1.110986.3.579.2. 1259 1953 Unknown [id number] 2.16.840.1.681880.3.579.2. 1259 1953 Unknown [id number] 2.16.840.1.068836.3.579.2. 1259 1953 Unknown [id number] 2.16.840.1.339584.3.579.2. 1259 1953 Unknown [id number] 2.16.840.1.905201.3.579.2. 1259 1953 Unknown [id number] 2.16.840.1.752239.3.579.2. 9 1953 Unknown [id number] 2.16.840.1.456087.3.579.2. 1259 1953 Unknown [id number] 2.16.840.1.064736.3.579.2. 1259 1953 Unknown [id number] 2.16.840.1.280721.3.579.2. 1259 1953 Unknown [id number] 2.16.840.1.735961.3.579.2. 196 1953 Unknown [id number] 2.16.840.1.061773.3.579.2. 196 1953 Unknown [id number] 2.16.840.1.893217.3.579.2. 196 1953 Unknown [id number] 2.16.840.1.284193.3.579.2. 196 1953 Unknown [id number] 2.16.840.1.169977.3.579.2. 196 1953 Unknown [id number] 2.16.840.1.213240.3.579.2. 196 Social History Date Type Detail Facility Start: 04-25-2023 Tobacco smoking status DEIS Never sm oked tobacco [facility] Start: [...] Frequency of Binge Drinking Not on file [facility] Start: 06-11-2023 Alcohol Comment coffee 3-4 cups per day [facility] Start: 1955 Sex Assigned At Female [facility] Start: 04-20-2023 Gender identity Identifies as female gender (finding) [facility] Start: 04-20-2023 Sexual orientation Heterosexual (fin ding) [facility] History of Present illness Narrative 07-26-2024 Karla Tyler, MICROCOMPUTER TECHNICIAN-STRAW BOSS - 07/26/2024 1:20 PM EST Note Date [...] Physical Therapy Treatment Visit Patient Name: Cesia Pguh Today's Date: 09/01/2023 Encounter Diagnoses Name Primary? Lumbar spondylosis Yes Right hip pain Antalgic gait Visit number: 10 Supervised time: 33 Total time: 67 Subjective Pain: 0/10. I feel pretty good today. Hasn't [id number] much activity yet this morning. Overall progress: [...] her functional mobility at this time. Uses [facility] for long distance [...] management on 09/01/23. documented in this encounter [facility] History of Present illness Narrative 08-18-2023 [...] ROM and strengthening. documented in this encounter [facility] Evaluation note Note Date & Type Note Facility Evaluation note Diagnosis Lumbar spondylosis- Primary Lumbosacral spondylosis without myelopathy Right hip pain Pain in joint, pelvic region and thigh Antalgic gait documented in this encounter [facility] Evaluation note Note Date & Type Note Facility Evaluation note Diagnosis Lumbar spondylosis- Primary Lumbosacral spondylosis without myelopathy Right hip pain Pain in joint, pelvic region and thigh Antalgic gait documented in this encounter [facility] Evaluation note Note Date & Type Note Facility Evaluation note Diagnosis Lumbar spondylosis- Primary Lumbosacral spondylosis without myelopathy Right hip pain Pain in joint, pelvic region and thigh Antalgic gait documented in this encounter [facility] Evaluation note Note Date & Type Note Facility Evaluation note Diagnosis Lumbar spondylosis- Primary Lumbosacral spondylosis without myelopathy Right hip pain Pain in joint, pelvic region and thigh Antalgic gait documented in this encounter [facility] Evaluation note Note Date & Type Note Facility Evaluation note Diagnosis Psoriasis vulgaris (CMS/HCC) Other psoriasis documented in this encounter [facility] Summary Purpose Family History No Family History Records FoundNo Family History Records FoundNo Family History Records Found Advance Directives No Advanced Directives Records FoundNo Advanced Directives Records FoundNo Advanced Directives Records Found Additional Source Comments INFORMATION SOURCE (unrecogn ized section and content) DATE CREATED AUTHOR 10/22/2022 [facility] DATE CREATED AUTHOR AUTHOR'S ORGANIZ ATION 07/31/2024 [facility] EPIC DATE CREATED AUTHOR AUTHOR'S ORGANIZ ATION 08/24/[address] [facility] Care Teams (unrecognized sec tion and content) Events Assistant Relationship Specialty Start Date End Date Daphne Elias MD [address] [place] [address] PCP - General Family Medicine 04/25/23 Events Assistant Relationship Specialty Start Date End Date Daphne Elias MD [address] [place] [address] PCP - General Family Medicine 04/25/23 Events Assistant Relationship Specialty Start Date End Date Daphne Elias MD [address] [place] [address] PCP - General Family Medicine 04/25/23 Events Assistant Relationship Specialty Start Date End Date Daphne Elias MD [address] [place] [address] PCP - General Family Medicine 04/25/23 Events Assistant Relationship Specialty Start Date End Date Daphne Elias MD [address] [place] [address] PCP - General Family Medicine 04/25/23 Events Assistant Relationship Specialty Start Date End Date Daphne Elias MD [address] [place] [facility] [address] PCP - General Family Medicine 04/25/23 Events Assistant Relationship Specialty Start Date End Date Daphne Elias MD [address] [facility] [place] [address] PCP - General Family Medicine 04/25/23 Events Assistant Relationship Specialty Start Date End Date Daphne Elias MD [address] [facility] [place] [address] PCP - General Family Medicine 04/25/23 Events Assistant Relationship Specialty Start Date End Date Daphne Elias MD [address] [facility] [place] [address] PCP - General Family Medicine 04/25/23 Events Assistant Relationship Specialty Start Date End Date Daphne Elias MD [address] [facility] [place] [address] PCP - General Family Medicine 04/25/23 Reason for Visit (unrecogniz ed section and content) Specialty Diagnoses / Procedures Referred By Contac t Referred To Contact Physical Therapy Diagnoses Spondylosis without myelopathy or radiculopathy, lumbar region Procedures [place] PHYSICAL THERAPY EVALUATION LOW COMPLEX 20 MINS Fabián Graham, BOTTOM POLISHER [address] [place] [address] Iris Davey, PT [address] [place] [address] Referral ID Status Reason Start Date Expiration Date V isits Requested Visits Authorized [id number] Authorized 07/27/2023 01/23/2024 30 30 Reason Comments [...] BE BASED ON THE PRIMARY CLINICAL RECORDS. [facility]. provides no warranty or guarantee of the accuracy or completeness of information in this document.
[2024-10-22 11:03] LABS: Basophils Percent Auto 0.9 % (0.2-2.0); Eosinophils Absolute Auto 0.1 10^3/uL (0.0-0.7); Eosinophils Percent Auto 2.4 % (0.9-7.0); Hematocrit 35.5 % (36.0-48.0); Hemoglobin 11.8 g/dL (12.0-16.0); Immature Granulocytes Abs Auto 0.01 10^3/uL (0.00-0.03); Immature Granulocytes Pct Auto 0.2 % (0.0-0.5); Lymphocytes Absolute Auto 1.1 10^3/uL (1.2-3.8); Mean Corpuscular HGB Conc 33.2 g/dL (29.9-35.2); Mean Corpuscular Hemoglobin 34.2 pg (26.7-34.0); Mean Corpuscular Volume 102.9 fL (81.0-99.0); Mean Platelet Volume 9.5 fL (9.5-13.5); Monocytes Absolute Auto 0.6 10^3/uL (0.3-0.8); Monocytes Percent Auto 12.4 % (1.7-12.0); Neutrophils Absolute Auto 2.8 10^3/uL (1.4-6.5); Neutrophils Percent Auto 61.1 % (43.0-75.0); Platelet Count 179 10^3/uL (150-450); Red Blood Count 3.45 10^6/uL (4.20-5.40); Red Cell Distribution Width 13.4 % (11.0-15.0); White Blood Count 4.6 10^3/uL (4.0-11.0)
[2024-10-22 11:29] LABS: Alanine Aminotransferase 29 U/L (14-59); Albumin Globulin Ratio 1.1; Albumin Level 3.6 g/dL (3.4-5.0); Alkaline Phosphatase 58 U/L (46-116); Anion Gap 12.4; Aspartate Amino Transferase 31 U/L (15-37); Bilirubin Total 0.7 mg/dL (0.2-1.0); Calcium 9.2 mg/dL (8.5-10.1); Carbon Dioxide 26.9 mmol/L (21.0-32.0); Chloride 106 mmol/L (98-107); Chol HDL Ratio 1.8; Cholesterol 208 mg/dL (<=200); Estimated GFR (African America >60 (>=60 mL/min/1.73m^2); Estimated GFR (Non-African Ame 52 (>=60 mL/min/1.73m^2); Globulin 3.4 g/dL; Glucose 97 mg/dL (74-106); HDL Cholesterol 115 mg/dL (40-60); Potassium 4.3 mmol/L (3.5-5.1); Sodium 141 mmol/L (136-145); Triglycerides 50 mg/dL (<=150)
[2024-10-22 12:09] LABS: Estimated Average Glucose 94 mg/dL; Glycohemoglobin A1C 4.9 % (4.5-6.2)
== END 2024-10-22 10:38 | disposition home or self-care (01) ==
LOC: LAB 10:39
PROVIDERS: PCP Family Medicine; Visit Provider Family Medicine
DX: M54.16 Radiculopathy, lumbar region (principal); I10 Essential (primary) hypertension; K21.9 Gastro-esophageal reflux disease without esophagitis; E78.5 Hyperlipidemia, unspecified; R73.09 Other abnormal glucose; Z12.12 Encounter for screening for malignant neoplasm of rectum; E03.9 Hypothyroidism, unspecified; R53.83 Other fatigue
CPT/HCPCS: 36415; 80053; 80061; 83036; 84436; 84443; 84481; 85025

== ENCOUNTER 2025-06-20 14:44 | Outpatient (OUT) | payer MEDICARE, OTHER, SELFPAY | END 2025-06-20 14:45 | disposition home or self-care (01) | LOC: RAD 14:45 | PROVIDERS: PCP Family Medicine; Visit Provider Family Medicine | DX: M81.0 Age-related osteoporosis without current pathological fracture (principal); M85.88 Other specified disorders of bone density and structure, other site | CPT/HCPCS: 77080 ==